=== PATIENT | male | born 1940 | race Caucasian/White ===

== ENCOUNTER 2019-12-10 07:08 | Outpatient (CLI) | payer MEDICARE, OTHER, SELFPAY ==
[2019-12-10 07:53] LABS: Alanine Aminotransferase 28 U/L (4-50); Albumin Level 4.2 g/dL (3.5-5.1); Alkaline Phosphatase 82 U/L (38-126); Aspartate Amino Transferase 33 U/L (17-59); Bilirubin,Total 0.9 mg/dL (0.2-1.3); Blood Urea Nitrogen 20 mg/dL (9-20); Calcium 9.8 mg/dL (8.4-10.2); Carbon Dioxide 26 mmol/L (22-30); Chloride 106 mmol/L (98-107); Cholesterol 108 mg/dL (0-200); Estimated Glomerular Filt Rate > 60; Glucose 101 mg/dL (75-110); HDL Direct 50 mg/dL; Potassium 4.3 mmol/L (3.4-5.0); Sodium 136 mmol/L (137-145); Triglycerides 75 mg/dL (<150)
[2019-12-10 08:04] LABS: LDL Cholesterol Direct < 30 mg/dL
[2019-12-10 09:20] LABS: Hemoglobin A1C 6.1 % (<5.7)
== END 2019-12-10 07:09 | disposition home or self-care (01) ==
PROVIDERS: PCP Family Medicine; Visit Provider Physician Assistant Medical
DX: E11.9 Type 2 diabetes mellitus without complications (principal)
CPT/HCPCS: 36415; 80053; 80061; 83036

== ENCOUNTER 2020-06-14 08:17 | Outpatient (CLI) | payer MEDICARE, OTHER, SELFPAY ==
[2020-06-14 08:58] LABS: Hemoglobin A1C 5.6 % (<5.7)
[2020-06-14 09:06] LABS: Alanine Aminotransferase 40 U/L (4-50); Albumin Level 3.8 g/dL (3.5-5.1); Alkaline Phosphatase 126 U/L (38-126); Anion Gap 8 mmol/L (8-16); Aspartate Amino Transferase 39 U/L (17-59); Bilirubin,Total 1.3 mg/dL (0.2-1.3); Blood Urea Nitrogen 30 mg/dL (9-20); Calcium 9.7 mg/dL (8.4-10.2); Carbon Dioxide 28 mmol/L (22-30); Chloride 105 mmol/L (98-107); Cholesterol 86 mg/dL (0-200); Estimated Glomerular Filt Rate > 60; Glucose 115 mg/dL (75-110); HDL Direct 20 mg/dL; Potassium 3.9 mmol/L (3.4-5.0); Sodium 141 mmol/L (137-145); Triglycerides 79 mg/dL (<150)
[2020-06-14 09:21] LABS: LDL Cholesterol Direct < 30 mg/dL
[2020-06-14 09:35] LABS: Prostate Specific Antigen 16.1 ng/mL (< OR = 4.0)
== END 2020-06-14 08:18 | disposition home or self-care (01) ==
PROVIDERS: PCP Family Medicine; Visit Provider Family Medicine
DX: R97.20 Elevated prostate specific antigen [PSA] (principal); N40.0 Benign prostatic hyperplasia without lower urinary tract symptoms; E78.2 Mixed hyperlipidemia; R73.03 Prediabetes
CPT/HCPCS: 36415; 80053; 80061; 83036; 84153

== ENCOUNTER 2020-06-20 13:19 | Emergency (ER) | payer MEDICARE, OTHER, SELFPAY ==
--- NOTE | ~2020-06-20 | CT_ITS ---
EXAMINATION: CT lumbar spine wo con DATE: 06/20/2020 14:49 INDICATION: Low back pain radiating down left leg. TECHNIQUE: Computed tomography (CT) of the lumbar spine was performed without intravenous contrast. A utomated exposure control and iterative reconstruction technique were employed. The dose-length produ ct was 1176.33 mGy-cm. COMPARISON: None FINDINGS: There is 4 degrees dextrocurvature of lower lumbar spine. L1 is a butterfly segment. There is mildly decreased disc height at L2-L3, moderately decreased disc height at L3-L4, and severely dec reased disc height at L4-L5. The following disc levels are specifically discussed: L1-L2: The disc does not extend beyond the endplate margin. There is moderate bilateral facet joint o steoarthritis. There is no neural foraminal stenosis. There is no central canal stenosis. L2-L3: The disc is bulging. There is moderate right and mild left facet joint osteoarthritis. There i s moderate bilateral neural foraminal stenosis. There is mild central canal stenosis. L3-L4: The disc is bulging. There is severe bilateral facet joint osteoarthritis. There is moderate b ilateral neural foraminal stenosis. There is moderate central canal stenosis. L4-L5: The disc is bulging. There is severe bilateral facet joint osteoarthritis. There is moderate b ilateral neural foraminal stenosis. There is severe central canal stenosis. L5-S1: The disc is bulging. There is severe bilateral facet joint osteoarthritis. There is mild bilat eral neural foraminal stenosis. There is mild central canal stenosis. IMPRESSION: 1. Severe lumbar spondylosis. Reviewed, dictated and finalized at location B. RAL ARRANGEMENT DIRECTOR
[2020-06-20 14:13] VITALS: BP 123/61; PULSE 105; RESP 16; TEMP 36.2; O2SAT 99
[2020-06-20 15:18] LABS: Basophils Absolute Auto 0.1 K/mm3 (0.0-0.1); Basophils Percent Auto 0.3 % (0.2-1.2); Eosinophils Absolute Auto 0.1 K/mm3 (0-0.3); Eosinophils Percent Auto 0.3 % (0-4.4); Hematocrit 41.3 % (42.0-52.0); Hemoglobin 14.2 g/dL (14.0-18.0); Immature Granulocyte Absolute 0.23 K/mm3 (0.00-0.031); Lymphocytes Absolute Auto 0.61 K/mm3 (0.9-3.2); Lymphocytes Percent Auto 2.6 % (18.3-44.2); Mean Corpuscular HGB Conc 34.4 g/dl (32-36); Mean Corpuscular Hemoglobin 33.3 pg (26-34); Mean Corpuscular Volume 96.9 fl (80-100); Mean Platelet Volume 9.8 fl (7.4-10.4); Monocytes Absolute Auto 1.4 K/mm3 (0.1-0.6); Neutrophils Absolute Auto 21.3 K/mm3 (1.3-6.7); Neutrophils Percent Auto 89.8 % (45.5-73.1); Platelet Count Result 438 k/mm3 (150-375); Red Blood Count 4.26 M/mm3 (4.6-6.20); Red Cell Distribution Width 14.1 % (11.5-14.5); White Blood Count 23.7 K/mm3 (4.5-10.0)
[2020-06-20 15:28] LABS: Alanine Aminotransferase 33 U/L (4-50); Alkaline Phosphatase 171 U/L (38-126); Anion Gap 5 mmol/L (8-16); Aspartate Amino Transferase 35 U/L (17-59); Bilirubin,Total 0.9 mg/dL (0.2-1.3); Blood Urea Nitrogen 29 mg/dL (9-20); Calcium 9.2 mg/dL (8.4-10.2); Carbon Dioxide 31 mmol/L (22-30); Chloride 101 mmol/L (98-107); Estimated CRCL calculation 55 ml/min; Estimated Glomerular Filt Rate > 60; Glucose 111 mg/dL (75-110); Potassium 3.6 mmol/L (3.4-5.0); Sodium 137 mmol/L (137-145)
[2020-06-20 16:04] VITALS: BP 134/74; PULSE 103; RESP 16; TEMP 37.4; O2SAT 97
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
[2020-06-20] MEDS: KETOROLAC 30 MG/ML VIAL (*BKC) IV PUSH (16:27)
[2020-06-20] MEDS: diazePAM INJ (*CRX) 10 MG/2 ML SYRINGE 5 MG IM (16:30)
[2020-06-20 16:51] LABS: Add Urine Microscopic? YES; Appearance Urine Clear (Clear); Bilirubin Urine Negative (Negative); Blood Urine Negative (Negative); Color Urine Yellow (Yellow); Glucose Urine UA Negative (Negative); Ketones Urine 1+ mg/dL (Negative); Leukocyte Esterase Ur Negative LEU/UL (Negative); Mucus Urine Rare /lpf; Nitrate Urine Negative (Negative); Protein Urine 1+ mg/dL (Negative); Specific Grav Ur 1.024 (1.001-1.035); Squamous Epithelial Cell Urine Rare /hpf (Few); Urobilinogen Urine Negative mg/dL (<2.0)
[2020-06-20 18:36] VITALS: BP 137/95; PULSE 88; RESP 16; O2SAT 95
--- NOTE | 2020-06-20 19:50 | PC.NURSE ---
Addendum entered by Sofia Nunez 06/20/20 22:34: 2211: [facility] called with updated ETA....0145. (due to call volume exceeding availability.) Original Note: 1729: Called [facility] to transport to [facility]...ETA 1900 (S) 1920: Called [facility] for status...ETA is now 0100 1942: Also called [facility] and [facility]. All declined due to call volume exceeding availability.
[2020-06-20 20:32] VITALS: BP 134/79; PULSE 96; RESP 16; TEMP 36.4; O2SAT 94
--- NOTE | 2020-06-20 20:53 | PC.NURSE ---
pt asking for more fluid to drink, reminded the pt that he is somewhat restricted due to being transferred to [place] for evaluation. pt was given sandwich tray and soda prior to his request for more fluids.
== END 2020-06-21 00:18 | disposition short-term general hospital (02) ==
PROVIDERS: Emergency Provider Emergency Medicine; PCP Family Medicine
DX: R32 Unspecified urinary incontinence (principal); M54.5 Low back pain; Z96.651 Presence of right artificial knee joint; E66.9 Obesity, unspecified; Z68.32 Body mass index [BMI] 32.0-32.9, adult; Z79.82 Long term (current) use of aspirin
CPT/HCPCS: 36415; 72131; 80053; 81001; 85025; 87040; 96365; 96372; 96375; 99285; J0696; J1100; J1885; J3360

== ENCOUNTER 2022-03-26 13:58 | Outpatient (CLI) | payer MEDICARE, OTHER, SELFPAY ==
[2022-03-26 15:11] LABS: Alanine Aminotransferase 27 U/L (6-50); Albumin Level 3.9 g/dL (3.5-5.1); Alkaline Phosphatase 91 U/L (38-126); Anion Gap 12 mmol/L (8-16); Aspartate Amino Transferase 26 U/L (17-59); Bilirubin,Total 0.7 mg/dL (0.2-1.3); Blood Urea Nitrogen 21 mg/dL (9-20); Calcium 9.3 mg/dL (8.4-10.2); Carbon Dioxide 21 mmol/L (22-30); Chloride 104 mmol/L (98-107); Cholesterol 110 mg/dL (0-200); Estimated Glomerular Filt Rate > 60; Glucose 105 mg/dL (65-110); HDL Direct 39 mg/dL; Potassium 4.3 mmol/L (3.4-5.0); Sodium 137 mmol/L (137-145); Triglycerides 147 mg/dL (<150)
[2022-03-26 15:33] LABS: Hemoglobin A1C 5.6 % (<5.7)
[2022-03-26 16:19] LABS: LDL Cholesterol Direct < 30 mg/dL
== END 2022-03-26 13:59 | disposition home or self-care (01) ==
LOC: ANHLAB 14:01
PROVIDERS: PCP Family Medicine; Visit Provider Family Medicine
DX: E78.5 Hyperlipidemia, unspecified (principal); E11.40 Type 2 diabetes mellitus with diabetic neuropathy, unspecified
CPT/HCPCS: 36415; 80053; 80061; 83036

== ENCOUNTER 2022-04-11 00:36 | Day surgery (SDC) | payer MEDICARE, OTHER, SELFPAY ==
--- NOTE | 2022-04-05 15:43 | PC.NURSE ---
Report to the Outpatient Waiting Room, entrance under the green pavilion located off [facility], at [id number] on date __04/11/22 . OR Time: _1200 . Time changes happen often and if your time is changed the preop area will call you the afternoon before. - You and your visitor will be asked to self-screen and do not enter if you have any COVID symptoms. - Only one visitor and NO children visitors are allowed at this time. - The patient visitor is requested to leave or wait in car when not with patient due to restrictions. - A mask is required within the hospital. Patients may have clear liquids (water, carbonated beverages, clear teas, apple juice) until 3 hours prior to surgery with a maximum of 20 ounces. - No food from midnight until time of surgery - Infants may have breast milk until 4 hours before surgery, formula 6 hours prior to surgery. - Children will be allowed to drink immediately following surgery. If applicable, please bring a bottle or sippy cup to assist with drinking. Juice, water, soda, and popsicles are readily available. For infants on formula, please bring formula the day of surgery. Pacifiers are allowed. Take the following medications with a SIP of water the morning of surgery: ___GABAPENTIN Medications to discontinue per physician ALL VITAMINS AND SUPPLEMENTS 3 DAYS PRE OP Date to take last dose___04/07/22 Please no make-up, nail irish, hairspray, perfume, deodorant, or body powder the day of surgery. No jewelry (including any body piercings) or valuables the day of surgery, leave them at home. Please take a shower or bath the night before, or the morning of, surgery with an antibacterial soap. Wear comfortable, loose fitting clothing. Children are encouraged to wear pajamas. - Jewelry must be removed prior to entering the operating room. Rings and piercings that are not removed may be cut off. - The hospital will not accept responsibility for valuables. - Please leave all valuables, including medications, at home the day of surgery. HIBICLENS SHOWER MORNING OF SURGERY If you are going home after surgery, a licensed jinrikisha driver must drive you home. - NO public transportation without another adult. - We recommend that an adult stay with you for 24 hours following discharge. - We also recommend that you do not drive, make important decision, drink alcoholic beverages, or take any drugs that were not prescribed by your health care provider for at least 24 hours after your discharge time. For Pediatric surgeries, we recommend two adults accompany the child home (only one inside the building at this time). Follow any additional instructions given to you from your surgeon. If you or anyone in your household have experienced Covid symptoms in the past week, please notify your surgeon or the nurse liaison at the phone number below for possible testing. Telephone instructions given to _PATIENT and asked if any additional questions and then verbalized understanding. Patient advised to call surgeon office or pre surgery nurse liaison [phone] if any additional questions.
[2022-04-05 15:54] VITALS: BMI 30.4
--- NOTE | 2022-04-10 20:41 | PM.HPGS ---
History of Present Illness History of Present Illness Consent: Risks, benefits, and alternatives of an open right inguinal hernia repair with mesh have been discussed and questions answered. Patient agrees to proceed with procedure. Chief complaint: right inguinal hernia Narrative: Greg Pires is a 81 year old male that presented to the office at the request of Dr Molina for an evaluation of a right inguinal hernia in December of this year. Patient reports that he has noticed a bulge in the right groin bulge that is reducible since 04/2021. He reports that he knew about it when he was at rehab recovering from an abscess on his liver. He was told that this hernia was small and it was asymptomatic at that time and not to worry about it. However, he reports that the hernia has been protruding out somewhat larger for the last few month or so. He reports that he goes to physical therapy twice a week where he is able to ride the bike and do leg presses. He reports that the hernia is not bothersome when doing this therapy. He reports that he would like to be able to walk further and further but the hernia is not what is keeping him from doing this, it is his neuropathy that is keeping him from archiving this. Patient did have a laparoscopic umbilical hernia repair [place] [address] [place]. Patient has had back surgery due to infection in 06/2020. He takes medication daily for high cholesterol and hypertension (rn provider relations is Dr Betsy Farris). He has had a PFO closure completed in 09/2017 at [facility] in [facility]. Review of Systems Review of Systems: All systems reviewed & are unremarkable except as noted in HPI and below (HPI) Constitutional: Constitutional: Reports as per HPI, Denies chills and Denies fever(s) Eyes: Eyes: Reports no additional eye complaints ENT: Reports Normal hearing present and Denies dizziness Cardiovascular: Cardiovascular: Reports no additional cardiovascular complaints, Denies chest pain and Denies irregular heart rhythm Comments: Hx of procedure for PFO closure 2019 HX of HTN and hyperlipidemia. Respiratory: Respiratory: Reports no additional respiratory complaints Gastrointestinal: Gastrointestinal: Reports no additional gastrointestinal complaints, Denies abdominal pain and Denies bloating Comments: Hx of previous umbilical hernia repair in 2013 Genitourinary: Genitourinary: Denies hematuria Musculoskeletal: Musculoskeletal: Denies back pain Integumentary/Breasts: Skin/Breast: Reports system reviewed and no additional complaints, except as docu Neurologic: Reports Normal hearing present, Denies Abnormal speech present, Denies confusion and Denies dizziness Psychiatric: Psychiatric: Reports no additional psychiatric complaints and Denies confusion Endocrine: Endocrine: Reports no additional endocrine complaints Hematologic/Lymphatic: Hematologic/Lymphatic: Denies easy bleeding and Denies easy bruising Allergic/Immunologic: Allergic/Immunologic: Reports no additional allergic/immunologic complaints PMFSH Past Medical History Medical History (Updated 04/11/22 @ 13:02 by Santana Marshall MD) ACL tear (~1963) 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
[2022-04-11] VITALS (9 sets, daily range): BP systolic 109–161; BP diastolic 64–84; PULSE 49–67; RESP 12–16; TEMP 36.4–36.6; O2SAT 96–99
[2022-04-11] MEDS: ACETAMINOPHEN 500 MG TABLET 1000 MG PO (11:10)
[2022-04-11] MEDS: KETOROLAC 15 MG/ML VIAL (*BKC) IV PUSH (11:33)
[2022-04-11 11:35] LABS: Glucose Point of Care 103 mg/dl (65-105)
[2022-04-11] MEDS: LACTATED RINGERS 1,000 ML 30 ML IV CONT ×2 (11:40→15:46)
--- NOTE | 2022-04-11 12:56 | WPDHPUPDATE1 ---
History and Physical Update Update Date/Time: 04/11/22 12:56 History and Physical has been reviewed, including an updated exam of the patient. There are NO changes in the patient's condition. Risks, benefits, and alternatives have been discussed and questions answered. Patient agrees to proceed with procedure.
--- NOTE | 2022-04-11 13:01 | WPDANESEPPF ---
Anes - Initial Pre Proc Eval Procedure: Operation Date: 04/11/22 12:00 Proposed Procedures p Open Right Inguinal Hernia Repair with Mesh - Sotero Corey MD Date/Time: 04/11/22 13:01 Surgeon: Sotero Corey MD Pre Op Diagnosis: right inguinal hernia Patient Data Age: 81 Gender: M Height: 1.68 m Weight: 86.5 kg Last Vital Signs Temp 36.6 C 04/11/22 11:40 Pulse 54 L 04/11/22 11:40 Resp 16 04/11/22 11:40 BP 161/64 H 04/11/22 11:40 Pulse Ox 96 04/11/22 11:40 O2 Del Method Room Air 04/11/22 11:40 Allergies Allergy/AdvReac Type Severity Reaction Status Date / Time Jasmyn Nut Allergy Severe FACIAL Uncoded 04/11/22 10:57 SWELLING, ITCHING,SWOLLEN EYES,REQURIED BENADRYL Home Medications Medication Instructions Recorded Confirmed Type aspirin 81 mg tablet,delayed 81 mg PO DAILY 12/17/19 04/11/22 History release (Aspir-) lisinopril 5 mg tablet 5 mg PO QAM 12/17/19 04/11/22 History hcetphnd-azz-uwtwa acid 300 1 tablet PO DAILY 12/17/19 04/11/22 History mcg-lycopene 600 mcg-lutein 300 mcg tablet (Centrum Silver Ultra Men's) atorvastatin 40 mg tablet 40 mg PO DAILY 06/09/21 04/11/22 History gabapentin 300 mg capsule 300 mg PO BID 06/09/21 04/11/22 History metformin 500 mg tablet,extended See Rx Instructions .Route 10/13/21 04/11/22 Rx release 24 hr .COMPLEX #90 tabs omega 2-ioq-uat-fish oil 1,000 mg 1 cap PO DAILY 12/26/21 04/11/22 History (120 mg-180 mg) capsule (Fish Oil) vitamin E mixed 1,000 unit capsule 1,000 unit PO DAILY 12/26/21 04/11/22 History ascorbic acid (vitamin C) 500 mg 500 mg PO DAILY 04/05/22 04/11/22 History capsule ginseng 100 mg capsule 100 mg PO DAILY 04/05/22 04/11/22 History naproxen sodium 220 mg capsule 220 mg PO BID PRN Pain 04/05/22 04/11/22 History Laboratory Tests 04/11/22 11:31 POC Capillary Glucose 103 mg/dl mg/dl (65-105) Patient hx anesthesia problems: none Family hx anesthesia problems: none Results Review: All pre-operative results and documents have been reviewed as part of the pre-operative evaluation. 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 Age: 81 Family history of glaucoma Family history of congestive heart failure Father Family history of blood dyscrasia Family history of cardiovascular disease Patient's father is , Onset Age: 89 Family history of coronary artery disease Other Family history of arthritis Family history of congenital heart disease Family history of gout Social History Social History Smoking packs per day: 1 Smoking cigarettes per day: 20.0 Years smoked: 20 Smoking pack-years: 20.00 Smoking status: Former smoker Tobacco type: cigarettes Smoking end date: 07/15/92 Alcohol intake: current Drinks per week: 7 Substance use: never Substance use type: does not use Living arrangements: with family Gender identity (if verbalized by the patient): Male Spiritual care concerns: No Anes
[2022-04-11] MEDS: ceFAZolin 2 GM/D5W 50 ML 2 GM/50 ML BAG IVPB (13:11)
[2022-04-11] MEDS: LIDOCAINE HCL 1% PF 30 ML VIAL INFILTRATE (13:34)
[2022-04-11] MEDS: BUPIVACAINE/EPINEPHRINE 0.25% 50 ML VIAL 30 ML INFILTRATE (13:35)
--- NOTE | 2022-04-11 15:46 | W.PM.PROC2 ---
Procedure Note - Detailed Date of Procedure 04/11/22 Pre-op Diagnosis right inguinal hernia Post-op Diagnosis Other (Direct and indirect right inguinal hernia) Procedure Performed Open inguinal hernia repair with mesh Surgeon Sotero Corey MD Community Relations Director [employer], [place] 1st assist Anesthesia General Indications Patient has a longstanding enlarging somewhat tender right inguinal hernia. He has received preop clearance for anesthesia and we are proceeding with a repair because of his continuing problems with pain and enlargement at the right inguinal site. Findings There was a large long very thin walled indirect inguinal hernia and a definite approximally 5 x 3 by 8 weakness in the direct space with minor bulging. The indirect sac was completely excised and suture ligated at the level of the internal ring. Description of Procedure The patient was placed in the supine position on the operating room table. After induction of adequate GIVS anesthesia using an LMA by [facility] Anesthesia staff, we carefully prepped the entire lower abdomen with chlorhexidine and the scrotum and penis with Betadine. One sterile towel was placed underneath the scrotum. Four towels were placed around the right lower quadrant. Following this, a time-out was performed with the surgical team and the patient's surgical procedure and site was confirmed. We then carefully outlined a curvilinear incision in the right groin area and a curvilinear incision was made after introducing a mixture of local anesthetic, using 0.25% Marcaine with epinephrine & plain 1% Xylocaine as both an ilioinguinal nerve block and at the incision site with a 25 gauge needle. Following this, I carefully made the incision, and carried it down through the subcutaneous tissue. Hannah's fascia was incised and then we identified the external oblique aponeurosis and the external ring. Following this, the same mixture of local anesthetic was infiltrated underneath the external oblique aponeurosis and this was split in the direction of it's fibers with a #15 blade initially and then using Metzenbaum scissors. I then opened the external oblique through the external ring and incised this somewhat posteriorly and superiorly exposing the ilioinguinal nerve. This nerve was carefully preserved laterally and then I carefully and meticulously dissected out the cord structures at the level of the pubic tubercle. I then surrounded these structures at the level of pubic tubercle and placed a Alfonso drain around them. I then carefully dissected the indirect hernia sac up and off of the cord tissues, and brought it up and out of the incision. while doing this it appeared that we observed some bowel in the sac which I was able to compression reduced back through the internal ring and into the abdomen. We carefully dissected the layers and cremasteric tissues off the hernia sac and then eventually opened the hernia sac. Upon opening the sac was found that there were was a small amount of serous fluid within the sac but no there hernia sac contents. Holding this up with 4 hemostats, I carefully dissected it off the cord structures, being careful to avoid injury to the Pampiniform plexus veins, the spermatic artery and the vas. Once the hernia sac was carefully dissected back to the level of the internal ring, a transfixition suture of 2-0 silk was used to close the neck of the hernia sac and following this, a 2 - 0 silk tie was placed just below this, tied tight, and then distally the hernia sac was amputated with Bovie cautery. It was then passed off the field for pathologic evaluation. Following this, we took care to recreate an appropriate inguinal canal. This was done by carefully dissecting from the internal ring down to the pubic bone, and dissecting away any cremasteric tissue. Once the large indirect hernia sac was removed palpation in the direct space and possible ox triangle revealed definite
[2022-04-11 16:00] LABS: Glucose Point of Care 95 mg/dl (65-105)
== END 2022-04-11 18:35 | disposition home or self-care (01) ==
PROVIDERS: PCP Family Medicine; Visit Provider Surgery
PROC: (CPT 49505; principal; 2022-04-11 12:00)
DX: K40.90 Unilateral inguinal hernia, without obstruction or gangrene, not specified as recurrent (principal); E11.40 Type 2 diabetes mellitus with diabetic neuropathy, unspecified; E78.2 Mixed hyperlipidemia; Z86.73 Personal history of transient ischemic attack (TIA), and cerebral infarction without residual deficits; Z79.82 Long term (current) use of aspirin; Z87.891 Personal history of nicotine dependence; E66.9 Obesity, unspecified; Z68.30 Body mass index [BMI] 30.0-30.9, adult; Z79.84 Long term (current) use of oral hypoglycemic drugs
CPT/HCPCS: 49505; 82948; 88302; A9270; C1781; J0690; J1885; J2405; J2704; J3010; J7120

== ENCOUNTER 2022-11-05 08:38 | Outpatient (CLI) | payer MEDICARE, OTHER, SELFPAY ==
[2022-11-05 09:50] LABS: Alanine Aminotransferase 32 U/L (6-50); Albumin Level 4.3 g/dL (3.5-5.1); Alkaline Phosphatase 91 U/L (38-126); Anion Gap 4 mmol/L (8-16); Aspartate Amino Transferase 34 U/L (17-59); Blood Urea Nitrogen 22 mg/dL (9-20); Calcium 9.5 mg/dL (8.4-10.2); Carbon Dioxide 30 mmol/L (22-30); Chloride 104 mmol/L (98-107); Cholesterol 101 mg/dL (0-200); Estimated Glomerular Filt Rate > 60; Glucose 92 mg/dL (65-110); HDL Direct 51 mg/dL; Potassium 4.6 mmol/L (3.4-5.0); Sodium 138 mmol/L (137-145); Triglycerides 60 mg/dL (<150)
[2022-11-05 09:53] LABS: Hemoglobin A1C 5.7 % (<5.7)
[2022-11-05 10:22] LABS: LDL Cholesterol Direct < 30 mg/dL
[2022-11-05 10:23] LABS: Creatinine Urine 84.6 mg/dL
[2022-11-05 10:28] LABS: MALB Creatinine Ratio 8.6 mg/g (0-30); Microalbumin Urine Random 7.3 mg/L (0-16.7)
== END 2022-11-05 08:39 | disposition home or self-care (01) ==
LOC: ANHLAB 08:41
PROVIDERS: PCP Family Medicine; Visit Provider Nurse Practitioner
DX: E11.40 Type 2 diabetes mellitus with diabetic neuropathy, unspecified (principal); E78.2 Mixed hyperlipidemia
CPT/HCPCS: 36415; 80053; 80061; 82043; 83036

== ENCOUNTER 2023-04-03 11:44 | Outpatient (CLI) | payer MEDICARE, OTHER, SELFPAY ==
[2023-04-03 14:47] LABS: Creatinine Urine 53.3 mg/dL
[2023-04-03 14:58] LABS: MALB Creatinine Ratio < 11.3 mg/g (0-30); Microalbumin Urine Random < 6.0 mg/L (0-16.7)
[2023-04-03 15:17] LABS: Alanine Aminotransferase 33 U/L (6-50); Alkaline Phosphatase 74 U/L (38-126); Anion Gap 3 mmol/L (8-16); Aspartate Amino Transferase 53 U/L (17-59); Bilirubin,Total 0.9 mg/dL (0.2-1.3); Blood Urea Nitrogen 18 mg/dL (9-20); Calcium 9.1 mg/dL (8.4-10.2); Carbon Dioxide 30 mmol/L (22-30); Chloride 104 mmol/L (98-107); Cholesterol 107 mg/dL (0-200); Estimated Glomerular Filt Rate > 60; Glucose 82 mg/dL (65-110); HDL Direct 45 mg/dL; Potassium 4.5 mmol/L (3.4-5.0); Sodium 137 mmol/L (137-145); Triglycerides 167 mg/dL (<150)
[2023-04-03 15:28] LABS: LDL Cholesterol Direct 35 mg/dL
[2023-04-03 21:05] LABS: Hemoglobin A1C 5.8 % (<5.7)
== END 2023-04-03 11:45 | disposition home or self-care (01) ==
PROVIDERS: PCP Family Medicine; Visit Provider Family Medicine
DX: E11.9 Type 2 diabetes mellitus without complications (principal)
CPT/HCPCS: 36415; 80053; 80061; 82043; 83036

== ENCOUNTER 2023-06-11 12:51 | Outpatient (CLI) | payer MEDICARE, OTHER, SELFPAY ==
--- NOTE | 2023-06-11 13:04 | ECG_ITS ---
Measurements Intervals [place] Rate: 66 P: 58 LA: 185 QRS: 55 QRSD: 100 T: 22 QT: 392 QTc: 414 Interpretive Statements SINUS RHYTHM VENTRICULAR PREMATURE COMPLEX MINIMAL Q WAVES- INFERIOR LEADS BASELINE ARTIFACT- I, II, III, AVR, AVL, AVF BORDERLINE ECG NO PREVIOUS ECG AVAILABLE FOR COMPARISON Electronically Signed On 06-11-2023 13:21:54 INSURANCE OFFICE MANAGER by Richard Martell D.O.
[2023-06-11 14:07] LABS: Anion Gap 8 mmol/L (8-16); Blood Urea Nitrogen 18 mg/dL (9-20); Calcium 9.6 mg/dL (8.4-10.2); Carbon Dioxide 26 mmol/L (22-30); Chloride 105 mmol/L (98-107); Estimated Glomerular Filt Rate > 60; Glucose 92 mg/dL (65-110); Potassium 4.9 mmol/L (3.4-5.0); Sodium 139 mmol/L (137-145)
== END 2023-06-11 12:52 | disposition home or self-care (01) ==
LOC: ANHSURGERY 12:59
PROVIDERS: Anesthesiology; PCP Family Medicine; Visit Provider Plastic Surgery
DX: E78.2 Mixed hyperlipidemia (principal); E11.9 Type 2 diabetes mellitus without complications; Z01.818 Encounter for other preprocedural examination
CPT/HCPCS: 36415; 80048; 93005

== ENCOUNTER 2023-06-14 03:04 | Day surgery (SDC) | payer MEDICARE, OTHER, SELFPAY ==
[2023-06-05 14:27] VITALS: BMI 29.9
--- NOTE | 2023-06-05 14:41 | PC.NURSE ---
PRE-OP INSTRUCTIONS, PLEASE READ CAREFULLY Report to the Outpatient Waiting Room, entrance under the green pavilion located off [facility], at time _0600_ on date _06/14/23_. Planned Procedure Time: _0730_. Time changes happen often and if your time is changed the preop area will call you the afternoon before. - You and your visitor will be asked to self-screen and do not enter if you have any COVID symptoms. - A mask is optional within the hospital at this time. - No food/fluids from 1130pm 06/13/23 until time of surgery Take the following medications with a SIP of water the morning of surgery: _GABAPENTIN_ DO NOT STOP ANY OF YOUR OTHER PRESCRIPTION MEDICATIONS PRIOR TO SURGERY ?EXCEPT THE FOLLOWING Medications to discontinue _ASPIRIN PER DR. WALSH, Date to take last dose_CALL DR. WALSH'S OFFICE FOR INSTRUCTIONS_ Medications to discontinue per ANESTHESIA - _MULTIVITAMIN & SUPPLEMENTS 3 DAYS PRIOR TO SURGERY, Date to take last dose 06/10/23_ Please no make-up, nail mexican, hairspray, perfume, deodorant, or body powder the day of surgery. No jewelry (including any body piercings) or valuables the day of surgery, leave them at home. Please take a shower or bath the night before, or the morning of, surgery with an antibacterial soap. Wear comfortable, loose fitting clothing. - Jewelry must be removed prior to entering the operating room. Rings and piercings that are not removed may be cut off. - The hospital will not accept responsibility for valuables. - Please leave all valuables, including medications, at home the day of surgery. If you are going home after surgery, a licensed tractor trailer truck driver must drive you home. - NO public transportation without another adult if you receive anesthesia. - We recommend that an adult stay with you for 24 hours following discharge. - We also recommend that you do not drive, make important decision, drink alcoholic beverages, or take any drugs that were not prescribed by your health care provider for at least 24 hours after your discharge time. Follow any additional instructions given to you from your surgeon. If you or anyone in your household have experienced Covid symptoms in the past week, please notify your surgeon or the nurse liaison at the phone number below for possible testing. Telephone instructions given to _PATIENT_and asked if any additional questions and then verbalized understanding. Patient advised to call surgeon office or pre surgery nurse liaison [phone] if any additional questions.
[2023-06-14 06:29] VITALS: BP 162/76; PULSE 67; RESP 18; TEMP 36.6; O2SAT 100
[2023-06-14] MEDS: LACTATED RINGERS 1,000 ML 30 ML IV CONT (06:52)
--- NOTE | 2023-06-14 06:52 | PM.HPGS ---
History of Present Illness History of Present Illness Consent: Patient seen and examined in pre-operative holding area. No interval change in medical history or symptoms other than noting his right middle finger has been locking. Patient recalls previous discussion of benefits and alternatives to procedure. Continues to desire to proceed with right endoscopic poss open carpal tunnel release and right middle finger trigger finger steroid injection. Reviewed procedure, post-op expectations and risks including but not limited to bleeding, infection, injury to tendon/nerve/vessel, decreased hand function, stiffness, RSD, no change or worsening of symptoms. I discussed the possible use of assistants and their participation in the case. Patient stated understanding and signed the consent form wishing to proceed. Chief complaint: Right carpal tunnel syndrome Narrative: Greg Pires is a 83 year old male with b/l cts desiring to proceed with surgery as above. no changes in healthy or history or symptoms other than trigger finger R MF. discussed impression and Dx and optio for concurrent steroid injection vs a1 chetan release, post-op expectations and risks. pt desires right MF trigger finger steroid injection at this time. Discussed steroid injection, indications, expectations and risks. risks including but not limited to bleeding, bruising, pain, pigmentation changes at injection site and change in blood sugar. 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 Liver abscess due to bacteria Mixed hyperlipidemia Obesity (BMI 30.0-34.9) Peripheral neuropathy Psoas abscess Transient cerebral ischemic attack, unspecified Umbilical hernia (~2002) Surgical History Surgical History H/O prostate biopsy H/O right inguinal hernia repair Open right inguinal hernia repair with mesh on 04/11/22 H/O thumb surgery H/O umbilical hernia repair History of adenoidectomy (~04/13/77) History of knee replacement (~2016) right knee Hx of tonsillectomy (~04/13/77) S/P patent foramen ovale closure Family History Family History Grandparent Diabetes mellitus Mother Diabetes mellitus Patient's mother is , Onset Age: 81 Family history of glaucoma Family history of congestive heart failure Father Family history of blood dyscrasia Family history of cardiovascular disease Patient's father is , Onset Age: 89 Family history of coronary artery disease Other Family history of arthritis Family history of congenital heart disease Family history of gout Social History Social History Smoking packs per day: 1 Smoking cigarettes per day: 20.0 Years smoked: 20 Smoking pack-years: 20.00 Smoking status: Former smoker Tobacco type: cigarettes Smoking end date: 07/15/92 Alcohol intake: current Drinks per week: 7 Substance use: never Substance use type: does not use Lack of Transportation: No Lack of Food: Never True Current Housing: I Have Housing Concerned About Future Housing: No Difficulty Paying Gas/Electric Bills: No Difficulty Paying for Meds: No Currently Unemployed: No Education: Master's Degree or Higher Difficulty w/ Childcare or Family Care: No Living arrangements: with family Occupation/Education: retired Gender identity (if verbalized by the patient): Male Sexual Orientation (if Verbalized by the Patient): Straight or Heterosexual Spiritual care concerns: No Meds
--- NOTE | 2023-06-14 06:53 | P.OP_ITS ---
Procedure Note - Detailed Date of Procedure 06/14/23 Pre-op Diagnosis right carpal tunnel syndrome and right middle finger trigger finger Post-op Diagnosis Same Procedure Performed right ectr and right middle finger steroid injection Surgeon Ramon Rush MD Anesthesia MAC Description of Procedure ENDOSCOPIC CARPAL TUNNEL RELEASE INFORMED CONSENT: The patient was seen and examined and marked in the pre-op area.? The patient signed the consent form. PROCEDURE IN DETAIL:The patient taken back to OR on the stretcher in supine position. Time out performed with anesthesia, surgeon and staff agreeing on patient's name site and surgery to be performed SCDs were placed on the lower extremities and inflated. A tourniquet was placed on {right} upper extremity and antibiotics given IV After anesthesia administered sedation I injected {3}cc 1%lido with epi and 0.5% marcaine plain at the operative site The?{right upper extremity}?was prepped and draped in sterile fashion the??{right upper extremity} was? exsanguinated with Esmarch bandage and tourniquet inflated to 250mmHg I made a transverse incision in the {right} volar distal wrist crease through skin and dermis with 15 blade scalpel.? Littler scissors spread down to antebrachial fascia. A small incision was made in antebrachial fascia allowing access to Carpal tunnel. I proceeded with sequential dilation staying in line with the ring finger and hugging the hook of the hamate.? I then used the synovial elevator to free any adhesions from the underside of the transverse carpal ligament. Next I was able to insert the Microaire endoscopic carpal tunnel device with direct visualization of the transverse fibers on the monitor and proceeded with complete segmental retrograde release of the ligament in its entirety.? I irrigated with normal saline and closed with 4-0 monocryl for dermis and sub cuticular closure. next, I injected 0.3cc 1%lidocaine plain and 0.7cc Betamethasone 6mg/ml injected into the right middle finger flexor sheath around a1 chetan under sterile conditions. A dressing of Dermabond, 4x4, samuel, and a volar splint was applied for patient safety, security, and comfort and secured with an leigh ann bandage after the tourniquet was let down noting the hand was warm and well perfused. The patient was then awaken from anesthesia and transferred to the recovery room in stable condition.? Complications - none EBL- 0cc Disposition - home in stable conditions [facility] [place] Surgery - Charge Forward: Surgery Billing ([id number])
--- NOTE | 2023-06-14 07:14 | WPDANESEPPF ---
Anes - Initial Pre Proc Eval Procedure: Operation Date: 06/14/23 07:30 Proposed Procedures p Right Endoscopic Carpal Tunnel Release - Ramon Rush MD Date/Time: 06/14/23 07:14 Surgeon: Ramon Rush MD Pre Op Diagnosis: Right carpal tunnel syndrome Patient Data Age: 83 Gender: M Height: 1.68 m Weight: 84.09 kg Allergies Allergy/AdvReac Type Severity Reaction Status Date / Time Jasmyn Nut Allergy Severe FACIAL Uncoded 06/05/23 14:24 SWELLING, ITCHING,SWOLLEN EYES,REQURIED BENADRYL Home Medications Medication Instructions Recorded Confirmed Type aspirin 81 mg tablet,delayed 81 mg PO DAILY 12/17/19 06/05/23 History release (Aspir-) lisinopril 5 mg tablet 5 mg PO QAM 12/17/19 06/05/23 History sqspaelj-wd-lcibe 300 mcg-K 60 1 tablet PO DAILY 12/17/19 06/05/23 History mcg-lycop 600 mcg-lutein 300 mcg tablet (Centrum Silver Ultra Men's) atorvastatin 40 mg tablet 40 mg PO DAILY 06/09/21 06/05/23 History omega 9-ycp-pmh-fish oil 1,000 mg 1 cap PO DAILY 12/26/21 06/05/23 History (120 mg-180 mg) capsule (Fish Oil) vitamin E mixed 1,000 unit capsule 1,000 unit PO DAILY 12/26/21 06/05/23 History ascorbic acid (vitamin C) 500 mg 500 mg PO DAILY 04/05/22 06/05/23 History capsule ginseng 100 mg capsule 100 mg PO DAILY 04/05/22 06/05/23 History gabapentin 300 mg capsule 300 mg PO TID #270 caps 02/28/23 06/05/23 Rx metformin 500 mg tablet,extended See Rx Instructions .Route 03/04/23 06/05/23 Rx release 24 hr .COMPLEX #90 tabs Patient hx anesthesia problems: none Family hx anesthesia problems: none Results Review: All pre-operative results and documents have been reviewed as part of the pre-operative evaluation. 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 type 2 diabetes mellitus with diabetic neuropathy Liver abscess due to bacteria Mixed hyperlipidemia Obesity (BMI 30.0-34.9) Peripheral neuropathy Psoas abscess Transient cerebral ischemic attack, unspecified Umbilical hernia (~2002) Surgical History Surgical History H/O prostate biopsy H/O right inguinal hernia repair Open right inguinal hernia repair with mesh on 04/11/22 H/O thumb surgery H/O umbilical hernia repair History of adenoidectomy (~04/13/77) History of knee replacement (~2016) right knee Hx of tonsillectomy (~04/13/77) S/P patent foramen ovale closure Family History Family History Grandparent Diabetes mellitus Mother Diabetes mellitus Patient's mother is , Onset Age: 81 Family history of glaucoma Family history of congestive heart failure Father Family history of blood dyscrasia Family history of cardiovascular disease Patient's father is , Onset Age: 89 Family history of coronary artery disease Other Family history of arthritis Family history of congenital heart disease Family history of gout Social History Social History Smoking packs per day: 1 Smoking cigarettes per day: 20.0 Years smoked: 20 Smoking pack-years: 20.00 Smoking status: Former smoker Tobacco type: cigarettes Smoking end date: 07/15/92 Alcohol intake: current Drinks per week: 7 Substance use: never Substance use type: does not use Lack of Transportation: No Lack of Food: Never True Current Housing: I Have Housing Concerned About Future Housing: No Difficulty Paying Gas/Electric Bills: No Difficulty Paying for Meds: No Currently Unemployed: No Education: Master's Degree or Higher Difficulty w/ Childcare or Family Care: No Living arrangements: with family Occupation/Educat
[2023-06-14 07:15] LABS: Glucose Point of Care 85 mg/dl (65-105)
[2023-06-14] MEDS: ceFAZolin 2 GM/D5W 50 ML 2 GM/50 ML BAG IVPB (07:30)
[2023-06-14] MEDS: LIDO 1%/EPINEPHRINE 1:100,000 50 ML VIAL 10 ML INFILTRATE (07:43)
[2023-06-14] MEDS: BUPivacaine HCL 0.5% PF 30 ML VIAL 10 ML INFILTRATE (07:44)
[2023-06-14] MEDS: TRIAMCINOLONE ACET INJ 40 MG/ML VIAL IM (07:45)
[2023-06-14 07:59] VITALS: BP 95/53; PULSE 61; RESP 12; O2SAT 96
[2023-06-14 08:08] LABS: Glucose Point of Care 100 mg/dl (65-105)
[2023-06-14 08:30] VITALS: BP 110/68; PULSE 76; RESP 20
[2023-06-14 09:00] VITALS: BP 109/67; PULSE 80; RESP 20
== END 2023-06-14 09:10 | disposition home or self-care (01) ==
PROVIDERS: PCP Family Medicine; Visit Provider Plastic Surgery
PROC: 01N54ZZ Release Median Nerve, Percutaneous Endoscopic Approach (ICD-10-PCS; CPT 29848; principal; 2023-06-14 07:30)
DX: G56.01 Carpal tunnel syndrome, right upper limb (principal); E78.2 Mixed hyperlipidemia; E11.40 Type 2 diabetes mellitus with diabetic neuropathy, unspecified; G62.9 Polyneuropathy, unspecified; Z86.79 Personal history of other diseases of the circulatory system; Z86.73 Personal history of transient ischemic attack (TIA), and cerebral infarction without residual deficits; Z82.49 Family history of ischemic heart disease and other diseases of the circulatory system; Z87.891 Personal history of nicotine dependence; Z79.82 Long term (current) use of aspirin; Z79.84 Long term (current) use of oral hypoglycemic drugs
CPT/HCPCS: 29848; 20550; 82948; J0690; J2405; J2704; J3010; J3301; J7120

== ENCOUNTER 2023-06-25 12:09 | Outpatient (CLI) | payer MEDICARE, OTHER, SELFPAY ==
[2023-06-25 16:21] LABS: Prostate Specific Antigen 19.2 ng/mL (< OR = 4.0)
== END 2023-06-25 12:10 | disposition home or self-care (01) ==
PROVIDERS: PCP Family Medicine; Visit Provider Urology
DX: R97.20 Elevated prostate specific antigen [PSA] (principal)
CPT/HCPCS: 36415; 84153

== ENCOUNTER 2023-07-17 00:53 | Day surgery (SDC) | payer MEDICARE, OTHER, SELFPAY ==
[2023-07-05 14:12] VITALS: BMI 29.9
--- NOTE | 2023-07-05 14:19 | PC.NURSE ---
Report to the Outpatient Waiting Room, entrance under the green pavilion located off [facility], at time __0800 on date __07/17/23 . Planned Procedure Time: ___1000 . Time changes happen often and if your time is changed the preop area will call you the afternoon before. - You and your visitor will be asked to self-screen and do not enter if you have any COVID symptoms. - A mask is optional within the hospital at this time. Patients may have clear liquids (water, carbonated beverages, clear teas, apple juice) until 3 hours prior to surgery with a maximum of 20 ounces. - No food from midnight until time of surgery - Infants may have breast milk until 4 hours before surgery, formula 6 hours prior to surgery. - Children will be allowed to drink immediately following surgery. If applicable, please bring a bottle or sippy cup to assist with drinking. Juice, water, soda, and popsicles are readily available. For infants on formula, please bring formula the day of surgery. Pacifiers are allowed. Take the following medications with a SIP of water the morning of surgery: ___GABAPENTIN DO NOT STOP ANY OF YOUR OTHER PRESCRIPTION MEDICATIONS PRIOR TO SURGERY ?EXCEPT THE FOLLOWING Medications to discontinue - _ASPIRIN PER DR. WALSH'S INSTRUCTIONS - CALL OFFICE FOR INSTRUCTIONS_ Medications to discontinue per ANESTHESIA - _VITAMINS/SUPPLEMENTS 3 DAYS PRIOR TO SURGERY, Date to take last dose 07/13/23_ Please no make-up, nail st helenian, hairspray, perfume, deodorant, or body powder the day of surgery. No jewelry (including any body piercings) or valuables the day of surgery, leave them at home. Please take a shower or bath the night before, or the morning of, surgery with an antibacterial soap. Wear comfortable, loose fitting clothing. Children are encouraged to wear pajamas. - Jewelry must be removed prior to entering the operating room. Rings and piercings that are not removed may be cut off. - The hospital will not accept responsibility for valuables. - Please leave all valuables, including medications, at home the day of surgery. If you are going home after surgery, a licensed truck driver heavy must drive you home. - NO public transportation without another adult if you receive anesthesia. - We recommend that an adult stay with you for 24 hours following discharge. - We also recommend that you do not drive, make important decision, drink alcoholic beverages, or take any drugs that were not prescribed by your health care provider for at least 24 hours after your discharge time. For Pediatric surgeries, we recommend two adults accompany the child home. Follow any additional instructions given to you from your surgeon. If you or anyone in your household have experienced Covid symptoms in the past week, please notify your surgeon or the nurse liaison at the phone number below for possible testing. Telephone instructions given to ____PT and asked if any additional questions and then verbalized understanding. Patient advised to call surgeon office or pre surgery nurse liaison [phone] if any additional questions.
--- NOTE | 2023-07-17 07:03 | WPDHPUPDATE1 ---
History and Physical Update Update Date/Time: 07/17/23 07:03 Patient seen and examined in pre-operative holding area. No interval change in medical history or symptoms. Patient recalls previous discussion of benefits and alternatives to procedure. Continues to desire to proceed with left endoscopic possible open carpal tunnel release. Reviewed procedure, post-op expectations and risks including but not limited to bleeding, infection, injury to tendon/nerve/vessel, decreased hand function, stiffness, RSD, no change or worsening of symptoms. I discussed the possible use of assistants and their participation in the case. Patient stated understanding and signed the consent form wishing to proceed.
--- NOTE | 2023-07-17 07:04 | W.PM.PROC2 ---
Procedure Note - Detailed Date of Procedure 07/17/23 Pre-op Diagnosis left carpal tunnel syndrome Post-op Diagnosis Same Procedure Performed left ectr Surgeon Ramon Rush MD Anesthesia MAC Description of Procedure ENDOSCOPIC CARPAL TUNNEL RELEASE INFORMED CONSENT: The patient was seen and examined and marked in the pre-op area.? The patient signed the consent form. PROCEDURE IN DETAIL:The patient taken back to OR on the stretcher in supine position. Time out performed with anesthesia, surgeon and staff agreeing on patient's name site and surgery to be performed SCDs were placed on the lower extremities and inflated. A tourniquet was placed on {left} upper extremity and antibiotics given IV After anesthesia administered sedation I injected {4}cc 1%lido with epi and 0.5% marcaine plain at the operative site The?{left upper extremity}?was prepped and draped in sterile fashion the??{left upper extremity} was? exsanguinated with Esmarch bandage and tourniquet inflated to 250mmHg I made a transverse incision in the {left} volar distal wrist crease through skin and dermis with 15 blade scalpel.? Littler scissors spread down to antebrachial fascia. A small incision was made in antebrachial fascia allowing access to Carpal tunnel. I proceeded with sequential dilation staying in line with the ring finger and hugging the hook of the hamate.? I then used the synovial elevator to free any adhesions from the underside of the transverse carpal ligament. Next I was able to insert the Microaire endoscopic carpal tunnel device with direct visualization of the transverse fibers on the monitor and proceeded with complete segmental retrograde release of the ligament in its entirety.? I irrigated with normal saline and closed with 4-0 monocryl for dermis and subcuticular closure. A dressing of Dermabond, 4x4, samuel, and a volar splint was applied for patient safety, security, and comfort and secured with an leigh ann bandage after the tourniquet was let down noting the hand was warm and well perfused. The patient was then awaken from anesthesia and transferred to the recovery room in stable condition.? Complications - none EBL- 0cc Disposition - home in stable conditions AM Billing Surgery - Charge Forward: Surgery Billing ([id number])
--- NOTE | 2023-07-17 08:32 | WPDANESEPPF ---
Anes - Initial Pre Proc Eval Procedure: Operation Date: 07/17/23 10:00 Proposed Procedures p Left Endoscopic Carpal Tunnel, Possible Open - Ramon Rush MD Date/Time: 07/17/23 08:32 Surgeon: Ramon Rush MD Pre Op Diagnosis: left carpal tunnel syndrome Patient Data Age: 83 Gender: M Height: 1.68 m Weight: 84 kg Allergies Allergy/AdvReac Type Severity Reaction Status Date / Time Jasmyn Nut Allergy Severe FACIAL Uncoded 07/17/23 08:08 SWELLING, ITCHING,SWOLLEN EYES,REQURIED BENADRYL Home Medications Medication Instructions Recorded Confirmed Type aspirin 81 mg tablet,delayed 81 mg PO DAILY 12/17/19 07/05/23 History release (Aspir-) lisinopril 5 mg tablet 5 mg PO QAM 12/17/19 07/05/23 History mcorwyrn-ne-iaumb 300 mcg-K 60 1 tablet PO DAILY 12/17/19 07/05/23 History mcg-lycop 600 mcg-lutein 300 mcg tablet (Centrum Silver Ultra Men's) atorvastatin 40 mg tablet 40 mg PO DAILY 06/09/21 07/05/23 History omega 3-pme-ydk-fish oil 1,000 mg 1 cap PO DAILY 12/26/21 07/05/23 History (120 mg-180 mg) capsule (Fish Oil) ascorbic acid (vitamin C) 500 mg 500 mg PO DAILY 04/05/22 07/05/23 History capsule ginseng 100 mg capsule 100 mg PO DAILY 04/05/22 07/05/23 History metformin 500 mg tablet,extended See Rx Instructions .Route 03/04/23 07/05/23 Rx release 24 hr .COMPLEX #90 tabs gabapentin 300 mg capsule 300 mg PO TID #270 caps 06/20/23 07/05/23 Rx vitamin E mixed 1,000 unit capsule 400 unit PO DAILY 06/27/23 07/05/23 History Patient hx anesthesia problems: none Family hx anesthesia problems: none Results Review: All pre-operative results and documents have been reviewed as part of the pre-operative evaluation. 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 Controlled type 2 diabetes mellitus with diabetic neuropathy Liver abscess due to bacteria Mixed hyperlipidemia Obesity (BMI 30.0-34.9) Peripheral neuropathy Psoas abscess Transient cerebral ischemic attack, unspecified Umbilical hernia (~2002) Surgical History Surgical History H/O prostate biopsy H/O right inguinal hernia repair Open right inguinal hernia repair with mesh on 04/11/22 H/O thumb surgery H/O umbilical hernia repair History of adenoidectomy (~04/13/77) History of knee replacement (~2016) right knee Hx of tonsillectomy (~04/13/77) S/P patent foramen ovale closure Family History Family History Grandparent Diabetes mellitus Mother Diabetes mellitus Patient's mother is , Onset Age: 81 Family history of glaucoma Family history of congestive heart failure Father Family history of blood dyscrasia Family history of cardiovascular disease Patient's father is , Onset Age: 89 Family history of coronary artery disease Other Family history of arthritis Family history of congenital heart disease Family history of gout Social History Social History Smoking packs per day: 1 Smoking cigarettes per day: 20.0 Years smoked: 20 Smoking pack-years: 20.00 Smoking status: Former smoker Tobacco type: cigarettes Second hand tobacco smoke exposure: No Smoking end date: 07/15/92 Alcohol intake: current Drinks per week: 7 Substance use: never Substance use type: does not use Lack of Transportation: No Lack of Food: Never True Current Housing: I Have Housing Concerned About Future Housing: No Difficulty Paying Gas/Electric Bills: No Difficulty Paying for Meds: No Currently Unemployed: No Education: Master's Degree or Higher Difficulty w/ Childcare or Family Care: No Living arrangements: with
[2023-07-17 08:37] VITALS: BP 162/66; PULSE 61; RESP 16; TEMP 36.9; O2SAT 98
[2023-07-17] MEDS: LACTATED RINGERS 1,000 ML 30 ML IV CONT (08:40)
[2023-07-17 08:48] LABS: Glucose Point of Care 102 mg/dl (65-105)
[2023-07-17] MEDS: ceFAZolin 2 GM/D5W 50 ML 2 GM/50 ML BAG IVPB (09:39)
[2023-07-17] MEDS: LIDO 1%/EPINEPHRINE 1:100,000 50 ML VIAL INFILTRATE (09:56)
[2023-07-17 10:02] VITALS: BP 108/55; PULSE 63; RESP 14; O2SAT 100
[2023-07-17 10:30] VITALS: BP 135/64; PULSE 59; RESP 18
[2023-07-17 11:00] VITALS: BP 129/52; PULSE 55; RESP 18
--- NOTE | 2023-07-17 11:10 | SUR.PHASEII ---
Patient dressed and waiting for ride home.
== END 2023-07-17 11:25 | disposition home or self-care (01) ==
PROVIDERS: PCP Family Medicine; Visit Provider Plastic Surgery
PROC: 01N54ZZ Release Median Nerve, Percutaneous Endoscopic Approach (ICD-10-PCS; CPT 29848; principal; 2023-07-17 10:00)
DX: G56.02 Carpal tunnel syndrome, left upper limb (principal); E78.2 Mixed hyperlipidemia; E11.9 Type 2 diabetes mellitus without complications; Z87.891 Personal history of nicotine dependence; Z86.79 Personal history of other diseases of the circulatory system; Z82.49 Family history of ischemic heart disease and other diseases of the circulatory system
CPT/HCPCS: 29848; 82948; J0690; J2704; J7120

== ENCOUNTER 2023-09-20 08:53 | Outpatient (CLI) | payer MEDICARE, OTHER, SELFPAY ==
[2023-09-20 09:19] LABS: Hematocrit 50.5 % (42.0-52.0); Hemoglobin 16.9 g/dL (14.0-18.0); Mean Corpuscular HGB Conc 33.5 g/dl (32-36); Mean Corpuscular Hemoglobin 33.3 pg (26-34); Mean Corpuscular Volume 99.4 fl (80-100); Mean Platelet Volume 10.1 fl (7.4-10.4); Platelet Count Result 238 k/mm3 (150-375); Red Blood Count 5.08 M/mm3 (4.6-6.20); Red Cell Distribution Width 13.2 % (11.5-14.5); White Blood Count 8.6 K/mm3 (4.5-10.0)
[2023-09-20 09:30] LABS: Alanine Aminotransferase 31 U/L (6-50); Albumin Level 4.1 g/dL (3.5-5.1); Alkaline Phosphatase 88 U/L (38-126); Anion Gap 3 mmol/L (8-16); Aspartate Amino Transferase 37 U/L (17-59); Bilirubin,Total 0.9 mg/dL (0.2-1.3); Blood Urea Nitrogen 20 mg/dL (9-20); Calcium 9.8 mg/dL (8.4-10.2); Carbon Dioxide 31 mmol/L (22-30); Chloride 106 mmol/L (98-107); Cholesterol 94 mg/dL (0-200); Estimated Glomerular Filt Rate > 60; Glucose 103 mg/dL (65-110); HDL Direct 48 mg/dL; Potassium 4.6 mmol/L (3.4-5.0); Sodium 140 mmol/L (137-145); Triglycerides 69 mg/dL (<150)
[2023-09-20 09:41] LABS: LDL Cholesterol Direct 36 mg/dL
[2023-09-20 09:52] LABS: Vitamin D 25 Hydroxy 54.5 ng/mL
[2023-09-20 11:51] LABS: Hemoglobin A1C 6.1 % (<5.7)
== END 2023-09-20 08:54 | disposition home or self-care (01) ==
LOC: ANHLAB 08:55
PROVIDERS: PCP Family Medicine; Visit Provider Nurse Practitioner
DX: E11.40 Type 2 diabetes mellitus with diabetic neuropathy, unspecified (principal); E55.9 Vitamin D deficiency, unspecified
CPT/HCPCS: 36415; 80053; 80061; 82306; 83036; 84443; 85027

== ENCOUNTER 2024-01-10 08:31 | Outpatient (CLI) | payer MEDICARE, OTHER, SELFPAY ==
[2024-01-10 12:50] LABS: Alanine Aminotransferase 33 U/L (6-50); Albumin Level 4.4 g/dL (3.5-5.1); Alkaline Phosphatase 90 U/L (38-126); Anion Gap 4 mmol/L (4-12); Aspartate Amino Transferase 67 U/L (17-59); Bilirubin,Total 1.1 mg/dL (0.2-1.3); Blood Urea Nitrogen 17 mg/dL (9-20); Calcium 9.4 mg/dL (8.4-10.2); Carbon Dioxide 30 mmol/L (22-30); Chloride 106 mmol/L (98-107); Cholesterol 102 mg/dL (0-200); Estimated Glomerular Filt Rate > 60; Glucose 82 mg/dL (65-110); HDL Direct 49 mg/dL; Potassium 4.4 mmol/L (3.4-5.0); Sodium 140 mmol/L (137-145); Triglycerides 76 mg/dL (<150)
[2024-01-10 13:07] LABS: Creatinine Urine 78.3 mg/dL
[2024-01-10 13:16] LABS: LDL Cholesterol Direct 35 mg/dL
[2024-01-10 13:33] LABS: Hemoglobin A1C 5.7 % (<5.7)
[2024-01-10 16:00] LABS: MALB Creatinine Ratio < 7.7 mg/g (0-30); Microalbumin Urine Random < 6.0 mg/L (0-16.7)
== END 2024-01-10 08:32 | disposition home or self-care (01) ==
PROVIDERS: PCP Family Medicine; Visit Provider Nurse Practitioner
DX: E11.40 Type 2 diabetes mellitus with diabetic neuropathy, unspecified (principal)
CPT/HCPCS: 36415; 80053; 80061; 82043; 83036

== ENCOUNTER 2024-03-18 09:55 | Outpatient (CLI) | payer MEDICARE, OTHER, SELFPAY ==
[2024-03-18 10:33] LABS: Anion Gap 9 mmol/L (4-12); Blood Urea Nitrogen 20 mg/dL (9-20); Calcium 9.4 mg/dL (8.4-10.2); Carbon Dioxide 25 mmol/L (22-30); Chloride 106 mmol/L (98-107); Estimated Glomerular Filt Rate > 60; Glucose 89 mg/dL (65-110); Potassium 4.2 mmol/L (3.4-5.0); Sodium 140 mmol/L (137-145)
== END 2024-03-18 09:56 | disposition home or self-care (01) ==
PROVIDERS: Anesthesiology; PCP Family Medicine; Visit Provider Urology
DX: E11.40 Type 2 diabetes mellitus with diabetic neuropathy, unspecified (principal)
CPT/HCPCS: 36415; 80048

== ENCOUNTER 2024-03-19 02:16 | Day surgery (SDC) | payer MEDICARE, OTHER, SELFPAY ==
--- NOTE | 2024-03-11 13:05 | PM.HPGS ---
History of Present Illness History of Present Illness Consent: Risks, benefits, and alternatives have been discussed and questions answered. Patient agrees to proceed with procedure. Chief complaint: Elev PSA Narrative: Greg Pires is a 83 year old male recently found to have a PSA elevation to 24.6. 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 After discussion of options she is elected for a fusion biopsy of the prostate. He is aware of the risks including, but not limited to, failure to diagnose the cancer, hematuria, rectal bleeding and systemic infection. 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 Controlled type 2 diabetes mellitus with diabetic neuropathy Fracture of T8 vertebra Liver abscess due to bacteria Mixed hyperlipidemia Obesity (BMI 30.0-34.9) Peripheral neuropathy Psoas abscess Spinal stenosis, lumbar region with neurogenic claudication Transient cerebral ischemic attack, unspecified Umbilical hernia (~2002) Unilateral primary osteoarthritis, right knee (08/22/16) Surgical History Surgical History H/O prostate biopsy H/O right inguinal hernia repair Open right inguinal hernia repair with mesh on 04/11/22 H/O thumb surgery H/O umbilical hernia repair History of adenoidectomy (~04/13/77) History of knee replacement (~2016) right knee Hx of tonsillectomy (~04/13/77) Presence of right artificial knee joint S/P patent foramen ovale closure Family History Family History Grandparent Diabetes mellitus Mother Diabetes mellitus Patient's mother is , Onset Age: 81 Family history of glaucoma Family history of congestive heart failure Father Family history of blood dyscrasia Family history of cardiovascular disease Patient's father is , Onset Age: 89 Family history of coronary artery disease Other Family history of arthritis Family history of congenital heart disease Family history of gout Social History Social History Smoking packs per day: 1 Smoking cigarettes per day: 20.0 Years smoked: 20 Smoking pack-years: 20.00 Smoking status: Former smoker Tobacco type: cigarettes Second hand tobacco smoke exposure: No Smoking end date: 07/15/92 Alcohol intake: current Drinks per week: 7 Substance use: never Substance use type: does not use Lack of Transportation: No Lack of Food: Never True Current Housing: I Have Housing Concerned About Future Housing: No Difficulty Paying Gas/Electric Bills: No Difficulty Paying for Meds: No Currently Unemployed: No Education: Master's Degree or Higher Difficulty w/ Childcare or Family Care: No Living arrangements: with family Occupation/Education: retired Gender identity (if verbalized by the patient): Male Sexual Orientation (if Verbalized by the Patient): Straight or Heterosexual Spiritual care concerns: No Meds Home Medications and Allergies Home Medications Medication Instructions Recorded Confirmed Type aspirin 81 mg tablet,delayed 81 mg PO DAILY 12/17/19 01/17/24 History release (Aspir-) lisinopril 5 mg tablet 5 mg PO QAM 12/17/19 01/17/24 History multivit-mn-
[2024-03-13 11:18] VITALS: BMI 30.2
--- NOTE | 2024-03-13 11:34 | PC.NURSE ---
Report to the Outpatient Waiting Room, entrance under the green pavilion located off [facility], at time _8:30AM_ on date _03/19/24_. Planned Procedure Time: __10:30AM .? Time changes happen often and if your time is changed the preop area will call you the afternoon before. - You and your visitor will be asked to self-screen and do not enter if you have any COVID symptoms. Please call surgeon if you need to reschedule. - A mask is optional within the hospital at this time. Patients may have clear liquids (water, carbonated beverages, clear teas, apple juice) until 3 hours prior to surgery with a maximum of 20 ounces. - No food from midnight until time of surgery and no smoking. Take only the following medications with a SIP of water on the morning of surgery: ____CIPRO, GABAPENTIN. DO NOT STOP ANY OF YOUR OTHER PRESCRIPTION MEDICATIONS PRIOR TO SURGERY EXCEPT THE FOLLOWING Medications to discontinue per physician HOLD ASPIRIN & ALL VITAMINS/SUPPLEMENTS 7 DAYS PRE-OP PER DR GEORGE____ Date to take last dose Please no make-up, nail chinese, hairspray, perfume, deodorant, or body powder the day of surgery.? No jewelry (including any body piercings) or valuables the day of surgery, leave them at home.? Please take a shower or bath the night before, or the morning of, surgery with an antibacterial soap.? Wear comfortable, loose fitting clothing.? - Jewelry must be removed prior to entering the operating room.? Rings and piercings that are not removed may be cut off. - The hospital will not accept responsibility for valuables.? - Please leave all valuables, including medications, at home the day of surgery. If you are going home after surgery, a licensed school bus driver/teacher assistant must drive you home.? - NO public transportation without another adult if you receive anesthesia. - We recommend that an adult stay with you for 24 hours following discharge. - We also recommend that you do not drive, make important decision, drink alcoholic beverages, or take any drugs that were not prescribed by your health care provider for at least 24 hours after your discharge time. Follow any additional instructions given to you from your surgeon. FLEETS ENEMA MORNING OF SURGERY PER DR GEORGE Telephone instructions given to ____PATIENT and asked if any additional questions and then verbalized understanding. Patient advised to call surgeon office or pre surgery nurse liaison [phone] if any additional questions.
--- NOTE | 2024-03-19 01:02 | WPDHPUPDATE1 ---
History and Physical Update Update Date/Time: 03/19/24 01:02 History and Physical has been reviewed, including an updated exam of the patient. There are NO changes in the patient's condition. Risks, benefits, and alternatives have been discussed and questions answered. Patient agrees to proceed with procedure.
[2024-03-19] MEDS: LACTATED RINGERS 1,000 ML 30 ML IV CONT (09:00)
[2024-03-19 09:06] LABS: Glucose Point of Care 105 mg/dl (65-105)
[2024-03-19 09:22] VITALS: BP 122/56; PULSE 69; RESP 18; TEMP 37; O2SAT 98
--- NOTE | 2024-03-19 10:42 | WPDANESEPPF ---
Anes - Initial Pre Proc Eval Procedure: Operation Date: 03/19/24 10:30 Proposed Procedures p Trans Rectal Ultrasound Fusion Guided Prostate Biopsy - Shelton Posada MD Date/Time: 03/19/24 10:42 Surgeon: Shelton Posada MD Pre Op Diagnosis: Elev PSA Patient Data Age: 83 Gender: M Height: 1.68 m Weight: 79.2 kg Last Vital Signs Temp 37.0 C 03/19/24 09:22 Pulse 69 03/19/24 09:22 Resp 18 03/19/24 09:22 BP 122/56 L 03/19/24 09:22 Pulse Ox 98 03/19/24 09:22 O2 Del Method Room Air 03/19/24 09:22 Allergies Allergy/AdvReac Type Severity Reaction Status Date / Time Jasmyn Nut Allergy Severe FACIAL Uncoded 03/19/24 09:19 SWELLING, ITCHING,SWOLLEN EYES,REQURIED BENADRYL Home Medications Medication Instructions Recorded Confirmed Type aspirin 81 mg tablet,delayed 81 mg PO DAILY 12/17/19 03/19/24 History release (Aspir-) lisinopril 5 mg tablet 5 mg PO QAM 12/17/19 03/19/24 History mvsxvviq-be-neatc 300 mcg-K 60 1 tablet PO DAILY 12/17/19 03/19/24 History mcg-lycop 600 mcg-lutein 300 mcg tablet (Centrum Silver Ultra Men's) atorvastatin 40 mg tablet 40 mg PO DAILY 06/09/21 03/19/24 History omega 5-tad-trk-fish oil 1,000 mg 1 cap PO DAILY 12/26/21 03/19/24 History (120 mg-180 mg) capsule (Fish Oil) ascorbic acid (vitamin C) 500 mg 500 mg PO DAILY 04/05/22 03/19/24 History capsule ginseng 100 mg capsule 100 mg PO DAILY 04/05/22 03/19/24 History gabapentin 300 mg capsule 300 mg PO TID #270 caps 02/05/24 03/19/24 Rx metformin 500 mg tablet,extended See Rx Instructions .Route 03/02/24 03/19/24 Rx release 24 hr .COMPLEX #90 tabs ciprofloxacin HCl 500 mg tablet 500 mg PO Q12H 03/13/24 03/19/24 History vitamin E 200 unit capsule 180 mg PO DAILY 03/13/24 03/19/24 History Laboratory Tests 03/19/24 09:02 POC Capillary Glucose 105 mg/dl (65-105) Patient hx anesthesia problems: none Family hx anesthesia problems: none Results Review: All pre-operative results and documents have been reviewed as part of the pre-operative evaluation. 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 Fracture of T8 vertebra Liver abscess due to bacteria Mixed hyperlipidemia Obesity (BMI 30.0-34.9) Peripheral neuropathy Psoas abscess Spinal stenosis, lumbar region with neurogenic claudication Transient cerebral ischemic attack, unspecified Umbilical hernia (~2002) Unilateral primary osteoarthritis, right knee (08/22/16) Surgical History Surgical History H/O prostate biopsy H/O right inguinal hernia repair Open right inguinal hernia repair with mesh on 04/11/22 H/O thumb surgery H/O umbilical hernia repair History of adenoidectomy (~04/13/77) History of knee replacement (~2016) right knee Hx of tonsillectomy (~04/13/77) Presence of right artificial knee joint S/P patent foramen ovale closure Family History Family History Grandparent Diabetes mellitus Mother Diabetes mellitus Patient's mother is , Onset Age: 81 Family history of glaucoma Family history of congestive heart failure Father Family history of blood dyscrasia Family history of cardiovascular disease Patient's father is , Onset Age: 89 Family history of coronary artery disease Other Family history of arthritis Family history of congenital heart disease Family history of gout Social History Social History Smoking packs per day: 1 Smoking cigarettes per day: 20.0 Years smoked: 30 Smoking pack-years: 30.00 Smoking status: Former smoker To
[2024-03-19 11:27] VITALS: BP 86/50; PULSE 64; RESP 14; O2SAT 97
--- NOTE | 2024-03-19 11:34 | W.PM.PROC2 ---
Procedure Note - Detailed Date of Procedure 03/19/24 Pre-op Diagnosis Elevated PSA Post-op Diagnosis Same Procedure Performed [place] prostate biopsy Surgeon Shelton Posada MD Anesthesia MAC Description of Procedure Patient is brought to the operative suite where he is positioned in the left lateral position. Systemic sedation is administered per the anesthesia department. Surgical time-out is undertaken and it's verified the patient has received preoperative antibiotics. Transrectal ultrasonography is undertaken with a standard transrectal probe. The [employer] system is used to superimpose his previously obtained mpMRI prostate images on the real-time transrectal ultrasond images. On the previous mpMRI there is one region of interest. Using the transrectal needle design for prostate biopsies 3 cores from each region of interest her obtain. We then proceeded with a standard 12 core prostate biopsy. Transrectal probe was removed and patient taken to recovery room having tolerated the procedure well. Blood loss was less than 10 cc. Urine Output 150 Drains No Packing No Pathology Yes
[2024-03-19 11:44] LABS: Glucose Point of Care 94 mg/dl (65-105)
[2024-03-19 11:45] VITALS: BP 93/53; PULSE 74; RESP 16
[2024-03-19 12:15] VITALS: BP 101/56; PULSE 60; RESP 16
== END 2024-03-19 12:30 | disposition home or self-care (01) ==
PROVIDERS: PCP Family Medicine; Visit Provider Urology
PROC: (CPT 55700; principal; 2024-03-19 10:30)
DX: R97.20 Elevated prostate specific antigen [PSA] (principal); E11.40 Type 2 diabetes mellitus with diabetic neuropathy, unspecified; G56.03 Carpal tunnel syndrome, bilateral upper limbs; I63.443 Cerebral infarction due to embolism of bilateral cerebellar arteries; E78.2 Mixed hyperlipidemia; G62.9 Polyneuropathy, unspecified; M48.062 Spinal stenosis, lumbar region with neurogenic claudication; M17.11 Unilateral primary osteoarthritis, right knee; Z79.82 Long term (current) use of aspirin; Z79.84 Long term (current) use of oral hypoglycemic drugs; Z98.890 Other specified postprocedural states; Z87.891 Personal history of nicotine dependence; Z86.73 Personal history of transient ischemic attack (TIA), and cerebral infarction without residual deficits; Z82.49 Family history of ischemic heart disease and other diseases of the circulatory system
CPT/HCPCS: 76872; 55700; 82948; G0416; J2704; J3010; J7120

== ENCOUNTER 2024-09-21 07:58 | Outpatient (CLI) | payer MEDICARE, OTHER, SELFPAY ==
--- OUTSIDE RECORDS SUMMARY | 2024-09-21 08:07 | XMS_ITS | Encounter Summary ---
Author Name [facility] Organization [facility] [place] Address [address] [place] [address] Care Team Providers Care Executive Assistant Name Role Phone ANGELA ARREDONDO Primary Care Provider Unavailab le Insurance Providers: All historical and current Section Date Range: From patient's date of to the date document was created. This section includes the names of all active insurance providers for the patient. Insurance Provider Type of Coverage Plan Name Start of Policy Coverage End of Policy Coverage Group Number Member ID Insurance Provider's Telephone Number Policy Barone's Name Patient's Relationship to Policy Barone MEDICARE (WNR) MEDICARE (M) PART A Apr 14, 2005 PART A [id number] Ti SKY PATIENT MEDICARE (WNR) MEDICARE (M) PART B Apr 14, 2005 PART B [id number] [phone] [id number] Ti SKY PATIENT Selected Encounter This section includes the information on record at [place] for the Encounter. Date/Time Encounter Type Encounter Description Reason Provider Source Aug 24, 2024 02:00 PM OFFICE O/P EST MOD 30 MIN OPTOMETRY ICD-10-CM H40.013 Open angle with borderline findings, low risk, bilateral CHIVETTA,YAS BATSHEVA IHE Encounter Template Text not used by [place] Assessments - Encounter Diagnoses This section includes the primary and secondary diagnoses documented for the Encounter. Date/Time Primary/Secondary Diagnosis Diagnosis Name Provider Source Aug 25, 2024 12:07 PM PRIMARY Open angle with borderline findings, low risk, bilateral YAS BRAGG [facility] Aug 25, 2024 12:07 PM SECONDARY Age-related nuclear cataract, bilateral YAS BRAGG [facility] Aug 25, 2024 12:07 PM SECONDARY Other retinoschisis and retinal cysts, left eye YAS BRAGG [facility] Aug 25, 2024 12:07 PM SECONDARY Presbyopia YAS BRAGG [facility] Aug 25, 2024 12:07 PM SECONDARY Type 2 diabetes mellitus without complications YAS BRAGGRICIA [facility] Plan of Treatment: Future Appointments (+ 6 months) and Future Tests (+/- 45 days) The Plan of Treatment section includes future care activities for the patient [facility] [place] [facility] This section includes future appointments and future orders which are active, pending or scheduled. Future Appointments This section includes appointments that were scheduled to occur 6 months from the date of the Encounter, up to a maximum of 20 appointments. The data comes from all [place] treatment facilities. Appointment Date/Time Appointment Type Appointme nt Facility Name Sep 14, 2024 11:00 AM AMBULATORY - MEDICINE [facility] Oct 09, 2024 10:00 AM AMBULATORY - SURGERY [facility] Feb 15, 2025 03:00 PM AMBULATORY - SURGERY [facility] Encounter Notes: All associated encounter notes This section contains the clinical notes associated to the Encounter. Date/Time Encounter Note(s) Provider Source Aug 24, 2024 03:20 PM OPTOMETRY CONSULT: LOCAL TITLE: OPTOMETRY CONSULT [facility] STANDARD TITLE: OPTOMETRY CONSULT DATE OF NOTE: AUG 24, 2024@15:20 ENTRY DATE: AUG 24, 2024@15:20:45 AUTHOR: YAS BRAGG COSIGNER: URGENCY: STATUS: COMPLETED Ocular Coherence Tomography Report Date: 08/24/24 Reason for Order: 1. GLS 2. retinoschisis OS Images available for viewing in [employer] RNFL OCT Interpretation: Reliability: good OD: temp borderline thinning OS: temp borderline thinning (thinning focally at 4 oc) disc area 3.12 OD, 2.83 OS OU: stable to 2021, megalopapillae Macula OCT Interpretation: Reliability: good OD: foveal contour intact, mild VMT c ERM greatest sup isolated drusen c pigment migration sup-nasal OS: foveal contour intact, mild VMt, GCC OD: sup-nasal thinning, inf-nasal borderline OS: 360 diffuse thinning OCT raster OS: inferior bullous retinoschisis /es/ YAS BRAGG, OD Staff Physician, Optometry Signed: 08/25/2024 12:07 YAS BRAGG [facility] Aug 24, 2024 02:01 PM OPTOMETRY NOTE: LOCAL TITLE: OPTOMETRY NOTE STANDARD TITLE: OPTOMETRY NOTE DATE OF NOTE: AUG 24, 2024@14:01 ENTRY DATE: AUG 24, 2024@14:01:30 AUTHOR: YAS BRAGG EXP COSIGNER: URGENCY: STATUS: COMPLETED Last seen 02/25/2024 Reason for visit: DFE/OCT/IOP check CC: 1. Pt reports vision is slightly blurry OU dist and near current specs 1 year old no new floaters or flashes 2. Concern c DM has not seen Dr. Augusto Molina (outside PCP) in a few months not insulin dependent, only on 500mg metformin qday x 15 years dx (+)agent orange exposure only checks BG when goes to drs office last a1c 5.9 Ocular meds: none Ocular ROS: 1. Glaucoma Suspect OU 2. Hx of T2DM without ocular manifestations OU - Last A1c 5.9% 3. Hx of Retinoschisis OS (Assessed to extent today) 4. Cataracts OU (Assessed to extent today) 5. Refractive Error with Presbyopia OU Family OcHX: (-) blindness (-) glaucoma (-) AMD (-) RD Cardiovascular ROS: no change from problem & medication lists CPRS Problem list, medications and allergies reviewed: CPRS Serology for Diabetes No GLUCOSE EO data found No HEMOGLOBIN A1C EO data found Cardiovascular BP: 131/70 (09/13/2023 14:39) Pulse: 65 (09/13/2023 13:56) Neuro: Orientation: Normal Psych: Mood/Affect: Normal Depression/suicide ideation: NO VISUAL ACUITY With correction Distance Visual Acuity OD 20/30 OS 20/25- Pupils PERRL OU (-)APD Confrontation: FTFC OU Extra-Ocular Muscles Full OU (-)pain (-)diplopia Externals/adnexa: Unremarkable OU Refraction 2/20/24 OD: +4.00-3.43p134 20/25+2 OS: +3.25-1.11j359 20/20 Add: +2.50 auto +4.00-2.08t724 +3.50-1.97p063 Refraction: 2/10/25 OD +4.25-3.16r839 20/20- OS +3.50-1.97g322 20/20 Add: + 2.50 TF c transitions; AR coating SLIT LAMP EXAMINATION Lids/Lashes/Lacrimal No blepharitis OU Conjunctiva/Sclera White/quiet OU Cornea/Tear Film Clear OU Ant Chamber Deep and quiet OU Iris Normal, (-)NVI OU Lens 2+ NS cataract OU Intraocular Pressures (Goldmann) 1 gtt fluress OD: OS: Time: Meds: 10/01/2018 16 16 1:15PM none 04/01/2018 15 16 9:30AM none 04/23/2019 14 13 1:40PM none 04/20/20 14 14 1:53PM none 4/6/21 14 16 1407pm 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, 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 09/18/21 13 14 328 none, 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 09/13/2022 14 13 1408 none 03/12/23 13 14 1427 none 09/03/23 16 14 1518 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, 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 02/25/2024 14 13 1514 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, 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 08/24/24 12 14 1434 none GONIOSCOPY 03/12/23 OD: open to CB 360, slight convex approach, no AR/PAS/NVA OS: open to CB 360, slight convex approach, no AR/PAS/NVA RETINAL EVALUATION 1 phenyleph 2.5%, 1 trop 1% OU DFE Dilated retinal exam Optic Nerve OD 0.65/0.70v CDR Flat, pink, distinct (-)NVD, tilted, thinner sup OS 0.65 CDR Flat, pink, distinct (-)NVD, tilted Vessels: 2/3 OU Macula: OD: Flat, intact (-)CSME OS: Flat, intact (-)CSME Posterior Pole: OD: (-)hemes (-)CWS (-)NVE OS: (-)hemes (-)CWS (-)NVE; (+)small areas RPE dropout along S/T arcades Periphery: OD: (-)holes, tears, RDs 360 OS: bullous retinoschisis IT/TEMP without holes/tears/SRF Vitreous: syneresis OU Assessment/Plan 08/24/24 1. Glaucoma Suspect OU vs. megalopapillae c tilted ONH OU (likely) CDR appears stable however inferior rim appears thin OD IOP 12/14 untreated thin CCT 463/482 gonio 02/2023 wide open despite patient being moderate hyperope OCT RNFL/GCC 08/2024 OD: temp borderline thinning OS: temp borderline thinning, focal thinning 4 o'c OU: stable to 2021 GCC 08/2024: shelia/sup shelia thinnning OD, diffuse thinning OS HVF 24-2 (02/25/2024) low reliablility OU OD: glaucomatous defects OS: two nasal edge points, paracentral defects worse sup-shelia Edu pt on all findings, defer tx, IOP adequate at this time. RTC 6 mo for IOP/HVF - if stable consider extending f/u 2. Diabetes without retinopathy Last A1C 5.9 (-)CSME/DME on clinical exam Pt ed on the importance of tight bg control Recommend A1C <7% to reduce risk of ocular complications 3. Cataracts OU mildly visually significant Defer cataract extraction until signs/sx indicate 4. Retinoschisis OS Pt asymptomatic Appears stable - fundus photos prior OCT raster today over area confirms Reviewed s/s of RD and instructed patient to RTC STAT Monitor with yearly DFE 5. Refractive error/Presbyopia increase in bva w/refraction Order new glasses Ed. pt on all findings RTC in 6mo for HVF/IOP check /es/ YAS BRAGG, OD Staff Physician, Optometry Signed: 08/25/2024 12:07 YAS BRAGG [facility]
--- OUTSIDE RECORDS SUMMARY | 2024-09-21 08:07 | XMS_ITS | Encounter Summary ---
Author Organization [facility] Health Address [address] [place] [address] Care Team Providers Care Sleeve Separator Name Role Phone Augusto Molina MD Primary Care Provider [phone] Augusto Molina MD Primary Care Provider [phone] Augusto Molina MD Unavailable [phone] Nadine Goldstein MD Unavailable [phone] Reason for Visit * Reason Onset Date Comments Pre Authorization 11/10/2018 Encounter Details Date Type Department Care Team (Late st Contact Info) Description 11/10/2018 Telephone [facility] [facility] [address] [place], [place] [id number] Noris Lu Pre Authorization Social History Tobacco Use Types Packs/Day Years Used Date Smoking Tobacco: Former Smokeless Tobacco: Never Alcohol Use Standard Drinks/Week Comments Yes 3 (1 standard drink = 0.6 oz pur e alcohol) Sex and Gender Information Value Date Recorded Sex Assigned at Not on file Gender Identity Not on file Sexual Orientation Not on file documented as of this encounter Functional Status Functional Status Response Date of Assess ment Is person deaf or have serious hearing difficult y? No 05/14/2018 Is person blind or have serious difficulty seein g? No 05/14/2018 Does person have serious dif ficulty walking/climbing stairs? No 05/14/2018 Does person have difficulty dressing/bathing? No 05/14/2018 Does person have difficulty doing errands alone? No 05/14/2018 Cognitive Status Response Date of Assessm ent Does person have difficulty concentrating/remembering/making decisions? No 05/14/2018 documented as of this encounter Miscellaneous Notes * Telephone Encounter - Noris Lu - 11/10/2018 2:52 PM CDT Images from the original note were not included. Insurance Company: [employer] Phone Number: Rn Intake: Requesting Provider: [employer]UG[employer] Rendering Facility/Provider: [facility] R[facility] Facility/Provider NPI/TAX ID: [id number] Date of Service: 11/19/18 Pending Reference Number: Approved Authorization Number: Approved Date Span: TO Additional Notes: NO AUTH REQ Noris Lu [facility] documented in this encounter Plan of Treatment Upcoming Encounters Date Type Department Care Team (Late st Contact Info) Description 09/22/2024 10:00 AM CDT Ancillary Procedure [facility] [address] [phone] 09/22/2024 11:20 AM CDT Office Visit [facility] Cardiology [address] [facility], [address] [address] Betsy Capone MD [address] [address] documented as of this encounter Visit Diagnoses Not on filedocumented in this encounter Additional Health Concerns Infection Onset Date Last Indicated Resolved Time COVID-19 Under Investigation 04/04/2021 04/04/2021 04/04/2021 2:09 PM CDT documented as of this encounter Care Teams Sleeve Separator Relationship Specialty Start Date End Date Augusto Molina MD [address] [place] [phone] PCP - General 01/27/18 04/02/21 Augusto Molina MD [address] [place] [phone] PCP - General Family Medicine 04/03/21 Augusto Molina MD [address] [place] [phone] 04/03/21 Nadine Goldstein MD [address] [place] [phone] Neurologist Neurology 11/24/17 documented as of this encounter
--- OUTSIDE RECORDS SUMMARY | 2024-09-21 08:07 | XMS_ITS | Encounter Summary ---
Author Organization [facility] Health Address [address] [facility] [address] Care Team Providers Care Service Girl Name Role Phone Augusto Molina MD Primary Care Provider [phone] Augusto Molina MD Primary Care Provider + [phone] Augusto Molina MD Unavailable [phone] Nadine Goldstein MD Unavailable Reason for Visit * Reason Onset Date Comments MEDICATION REFILL 04/02/2019 Encounter Details Date Type Department Care Team (Late Contact [facility]) Description 04/02/2019 Refill [facility] [address] [place] [address] Nadine Goldstein MD [address] OF NEUROLOGY [phone] MEDICATION REFILL Social History Tobacco Use Types Packs/Day Years [...] No 05/14/2018 documented as of this encounter Plan of Treatment Upcoming Encounters Date Type Department Care Team (Late st Contact Info) Description 09/22/2024 10:00 AM CDT Ancillary Procedure [facility] [address] [facility], [address] [phone] 09/22/2024 11:20 AM CDT Office Visit [facility] Cardiology [address], [address] [phone] Betsy Capone MD [address] [facility] [address] [address] documented as of this encounter Visit Diagnoses Not on filedocumented in this encounter Additional Health Concerns Infection Onset Date Last Indicated Resolved Time COVID-19 Under Investigation 04/04/2021 04/04/2021 04/04/2021 2:09 PM CDT documented as of this encounter Care Teams Service Girl Relationship Specialty Start Date End Date Augusto Molina MD [address] [place] [phone] PCP - General 01/27/18 04/02/21 Augusto Molina MD [address] [place] [phone] PCP - General Family Medicine 04/03/21 Augusto Molina MD [facility] [place] [phone] 04/03/21 Nadine Goldstein MD [address] [place] [phone] Neurologist Neurology 11/24/17 documented as of this encounter
--- OUTSIDE RECORDS SUMMARY | 2024-09-21 08:07 | XMS_ITS | Clinical Summary ---
Author Organization [facility] Address [address], [facility] [address] [place] [address] Phone Care Team Providers Care Change Management Specialist Name Role Phone Augusto Molina MD Primary Care Provider [phone] Gil Madison DO Unavailable [phone] Social History Tobacco Use Types Packs/Day Years Used Date Smoking Tobacco: Never Assessed Sex and Gender Information Value Date Recorded Sex Assigned at Not on file Legal Sex Male 9:45 PM CDT Gender Identity Not on file Sexual Orientation Not on file Plan of Treatment Health Maintenance Due Date Last Done Comments Hepatitis C Virus (HCV) Screening 1940 Pneumococcal Immunization (50+ years) (1 of 1 - PCV) 1990 Zoster Immunization (1 of 2) 1990 Respiratory Syncytial Virus (RSV) Immunization (Adult) (1 - 1-dose 75+ series) 2015 Influenza Immunization (#1) 03/15/202404/14, 04/24/2018 SARS-COV-2 Immunization (2 - season) 2024 04/16/2021 DTaP/Tdap/Td Immunization Discontinued 12/17/2019 TdaP Immunization Completed 12/17/2019 Hepatitis B Immunization Aged Out No longer eligible based on patient's age to complete this topic Meningococcal Immunization (ACWY) Aged Out No longer eligible based on patient's age to complete this topic Rotavirus Immunization Aged Out No lo nger eligible based on patient's age to complete this topic Insurance MEDICARE Care Teams Change Management Specialist Relationship Specialty Start Date End Date Augusto Molina MD [address] [place] [address] [address] [place] [address] PCP - General Family Medicine 03/31/18 Gil Madison DO [address] [place] [address] [address] [place] [address] Gastroenterology 03/31/18
--- OUTSIDE RECORDS SUMMARY | 2024-09-21 08:07 | XMS_ITS | Clinical Summary ---
Author Organization [facility] Address [address] [facility] [place] [address] Care Team Providers Care Electricians Top Helper Name Role Phone Augusto Molina MD Primary Care Provider [phone] Augusto Molina MD Unavailable [phone] Nadine Goldstein MD Unavailable Source Comments [facility],non-owned Affiliates and Associated Physician Practices is amultiple site organization consisting of ambulatory clinics and hospital sitesin [place], [place], [place] and [place]. This disclosure is being madepursuant to the Care Everywhere program and may not contain all information available regarding this patient. Last updated 18.[facility] Allergies Active Allergy Reactions Criticality Noted Date Comments Tree Nuts Anaphylaxis,Rash High 01/27/2018 Medications * Be aware that medications may not be up to date on this document. Alwaysverify current medications with the patient. Medication Sig Dispensed Refills Start Date End Date Status Gelatin 600 MG Take 500 mg by mouth once daily Active Ascorbic Acid (VITAMIN C) 500 MG Take 1 capsule by mouth once daily Active Ginseng 250 MG Take 1 capsule by mouth once daily Active vitamin E (Tocopheryl) 400 UNIT capsule Take 1 (one) capsule by mouth once daily Active aspirin (ASPIRIN) 81 MG chew tablet Take 1 (one) tablet by mouth once daily Active metFORMIN ER 24hr (GLUCOPHAGE XR) 500 MG tablet Take 1 (one) tablet by mouth daily with dinner Active Multiple Vitamins-Minerals (MULTI-VITAMIN/MINERAL S) TABS Take 1 (one) tablet by mouth Active Glucosamine-Chondroit- Vit C-Mn (GLUCOSAMINE CHONDROITIN COMPLX) CAPS Active gabapentin (Neurontin) 300 MG capsule Take 1 (one) capsule by mouth 3 times daily 90 capsule 10/09/2022 Active atorvastatin (Lipitor) 40 MG tabletIndications:Hype rlipidemia, unspecified hyperlipidemia type TAKE 1 TABLET AT BEDTIME 90 tablet 3 12/06/2023 Active lisinopril (Prinivil; Zestril) 5 MG tabletIndications:Hype rtension, unspecified type TAKE 1 TABLET DAILY 90 tablet 3 12/06/2023 Active Active Problems Problem Noted Date Diagnosed Date 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 -Pt instructed to call if he has reoccurring symptoms of retention or other concerns. -F/U prn Benign prostatic hyperplasia with lower urinary tract symptoms 06/27/2020 Insomnia, unspecified 06/27/2020 Low back pain 06/27/2020 Male erectile dysfunction, unspecified 0 Obesity, unspecified 06/27/2020 Presence of urogenital implants 06/27/2020 Cryptogenic stroke 06/21/2020 Type 2 diabetes mellitus 06/21/2020 Spinal epidural abscess 06/21/2020 Overview (04/05/2021): Last Assessment & Plan: Summary: 80 y.o. 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 - s/p 8 weeks of Ceftriaxone (06/21/20 --> 08/16/20) PLAN - Firm stop on antimicrobials today. No need for PO suppression since no HW in place. --> PICC removed in clinic today - Recommend ambulatory colonoscopy with his PCP as origin of the infection remains unclear, although likely transient bacteriemia from oral/gut source given the isolated organism. 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, lumbar region 020 Psoas muscle abscess 06/20/2020 Fitting and adjustment of spectacles and contact lenses 03/25/2020 HTN (hypertension) 09/10/2017 Cerebral infarction due to u nspecified occlusion or stenosis of unspecified cerebral artery 04/07/2017 Cerebrovascular accident (CV A) involving posterior circulation 04/07/2017 PFO (patent foramen ovale) TIA (transient ischemic attack) Resolved Problems Problem Noted Date Diagnosed Date Resolved Date Fever 04/04/2021 04/19/2021 Atrial septal defect 09/10/2017 018 Encounters Date Type Department Care Team Description 09/11/2024 Orders Only [facility] - Cardiology [address] [facility], [facility] [address] [place] [address] Ruperto Olmos RN Aortic valve stenosis, etiology of cardiac valve disease unspecified ; PFO (patent foramen ovale) (HCC) from Last 3 Months Immunizations Name Administration Dates Next Due TransLattice primary monoval ent 12+ yr 0.3mL Purple cap 04/16/2021,08/23/2020,08/02/2020 INFLUENZA VACCINE 04/14/2020, 9,04/17/2018,2016 INFLUENZA VACCINE, HIGH-DOSE , QUADR. (FLUZONE HIGH-DOSE QUADRIVALENT; 65Y+), 0.7 ML (HD-IIV4) 04/24/2018,03/25/2018 PNEUMOCOCCAL PPSV23 07/15/2015 Pneumococcal Pcv13 Conj 07/15/2014 TDAP (7yrs+) 12/17/2019,08/22/2017 iNFLUENZA VACCINE, RECOM-LITTLEJOHN, QUADR. (FLUBLOCK QUADRIVALENT; 18Y+) (RIV4) 05/01/2019 Family History Medical History Relation Name Comments Depression Neg Hx Seizures Neg Hx Social History Tobacco Use Types Packs/Day Years Used Date Smoking Tobacco: Former Smokeless Tobacco: Never Tobacco Cessation:Counseling Given: Not Answered Alcohol Use Standard Drinks/Week Comments Yes 1 (1 standard drink = 0.6 oz pur e alcohol) PHQ-2 Answer Date Recorded PHQ2 TOTAL SCORE 0 2021 Sex and Gender Information Value Date Recorded Sex Assigned at Not on file Gender Identity Not on file Sexual Orientation Not on file Last Filed Vital Signs Vital Sign Reading Time Taken Comments Blood Pressure 110/68 09/24/2023 11:17 AM CDT Pulse 65 09/24/2023 11:17 AM CDT Temperature 36.7 C (98.1 F) 10/10/2021 10:31 AM CDT Respiratory Rate 20 05/29/2021 1:20 PM RESOURCE 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 Oxygen Saturation 100% 09/24/2023 11:17 AM CDT Inhaled Oxygen Concentration - - Weight 89.8 kg (198 lb) 09/24/2023 11:17 AM CDT Height 167.6 cm (5' 6 ) 09/24/2023 11:17 AM CDT Body Mass Index 31.96 09/24/2023 11:17 AM CDT Plan of Treatment Upcoming Encounters Date Type Department Care Team (Late st Contact Info) Description 09/22/2024 10:00 AM CDT Ancillary Procedure [facility] - Echosonography [address] [phone] 09/22/2024 11:20 AM CDT Office Visit [facility] - Cardiology [address] [facility], [place] [id number] [place] [address] Betsy Capone MD [address] [address] Health Maintenance Due Date Last Done Comments MEDICARE AWV 12 MONTHS 1940 ZOSTER VACCINE (1 of 2) 1990 Respiratory Syncytial Virus (RSV) Vaccine Pt: or over 60 yrs (1 - 1-dose 75+ series) 2015 DIABETES RETINOPATHY SCREENING 04/05/2021 DIABETES-FOOT EXAM WITH MONOFILAMENT 04/05/2021 DIABETES-HGB A1C 10/05/2021 04/07/2021, 02/2020, 04/07/2017 DIABETES-SERUM CREATININE 04/15/20222020, 04/14/2021, 04/13/2021, Additional history exists COVID-19 VACCINE ( season) 2024 04/16/2021, 08/23/2020, 08/02/2020 INFLUENZA VACCINE (#1) 2024 , 05/01/2019, 04/14/2019, Additional history exists DEPRESSION SCREENING 07/15/2024 DIABETES - URINE PROTEIN SCREENING 07/15/2024 DTAP/TDAP/TD VACCINES (3 - Td or Tdap) 12/16/2029 12/17/2019, 08/22/2017 PNEUMOCOCCAL VACCINE 50+ Completed 07/15/2015, 07/2014 HEPATITIS B VACCINE Aged Out No longe r eligible based on patient's age to complete this topic HIB VACCINE Aged Out No longer eligi ble based on patient's age to complete this topic HPV VACCINE Aged Out No longer eligi ble based on patient's age to complete this topic MENINGOCOCCAL (Group B) VACCINE Aged Out No longer eligible based on patient's age to complete this topic MENINGOCOCCAL VACCINE Aged Out No maritza dean eligible based on patient's age to complete this topic Medical Devices Implanted Type Area Construction Executive Device Identifier Shelf Expiration Date Model / Serial / Lot Occl Sept Cribifrm 18mm Implanted:Qty: 1 on 05/13/2018 by Augusto Estrada MD at [facility] [employer] 12/12/2022 [id number] Procedures Procedure Name Priority Date/Time Associated Diagnosis Comments COMPREHENSIVE METABOLIC PANEL AM Draw 04/15/2021 8:22 AM CDT HEMOGLOBIN A1C Routine 04/07/2021 11:21 AM CDT from Last 3 Months or Most Recently Relevant to Health Maintenance Results * (ABNORMAL) COMPREHENSIVE METABOLIC PANEL (04/15/2021 8:22 AM [facility]) BUN 13 7 - 26 mg/dL 04/15/2021 9:49 AM [facility] Creatinine 0.81 0.71 - 1.16 mg/dL 04/15/2021 9:49 AM [facility] Sodium 140 136 - 145 mmol/L 04/15/2021 9:49 AM [facility] Potassium 3.9 3.5 - 4.5 mmol/L 04/15/2021 9:49 AM [facility] Chloride 108(H) 98 - 107 mmol/L 04/15/2021 9:49 AM [facility] CO2 25 22 - 29 mmol/L 04/15/2021 9:49 AM [facility] Glucose 94 70 - 115 mg/dL 04/15/2021 9:49 AM [facility] Calcium 8.8 8.4 - 10.2 mg/dL 04/15/2021 9:49 AM [facility] Protein Total 6.0 6.0 - 8.3 g/dL 04/15/2021 9:49 AM [facility] Albumin 2.1(L) 3.4 - 5.0 g/dL 04/15/2021 9:49 AM [facility] Bilirubin Total 0.4 0.2 - 1.2 mg/dL 04/15/2021 9:49 AM [facility] Alkaline Phosphatase 202(H) 40 - 150 U/L 04/15/2021 9:49 AM [facility] ALT 41 5 - 55 U/L 04/15/2021 9:49 AM [facility] AST 35(H) 5 - 34 U/L 04/15/2021 9:49 AM [facility] Anion Gap 11 8 - 18 04/15/2021 9:49 AM [facility] BUN/Creatinine Ratio 16 7 - 23 04/15/2021 9:49 AM [facility] Osmolality Calculated 290 270 - 300 mOsm/kg 04/15/2021 9:49 AM [facility] Albumin/Globulin Ratio 0.5(L) 1.1 - 2.3 04/15/2021 9:49 AM CDT [facility] eGFR by CKD-EPI 84(L) >=90 mL/min/1.7 3 m2 04/15/2021 9:49 AM CDT [facility] Blood BLOOD SPECIMEN / Unknown Lab Venipuncture / Unknown 04/15/2021 8:22 AM CDT 04/15/2021 9:25 AM CDT Laina Sanchez PA-C LAB - CHEMISTRY LYUDMILA ZAMAN [facility] [address] [place] [address], [facility] [phone] * HEMOGLOBIN A1C (04/07/2021 11:21 AM CDT) Hemoglobin A1c 6.3 4.4 - 6.3 % 04/07/2021 4:57 PM CDT [facility] Estimated Average Glucose 134 mg/dL 04/07/2021 4:57 PM CDT [facility] Comment: HbA1c Interpretation: Treatment target values recommended by ADA and other clinical organizations should be used to evaluate metabolic control in patients. Treatment Target Values: Normal : < 5.7% Pre-diabetes: 5.7-6.4% Diabetes: Equal to or greater than 6.5% Reference: [place] Diabetes Association Standards of Care in Diabetes -2014 In patients 70 years and older consider HbA1c target range of 7.0-7.5% Reference: Diabetes Mellitus in Older People: Position Statement on behalf of the International Association of Gerontology and Geriatrics (IAGG), the Diabetes Working Libertarian for Older People (EDWPOP), and the International Task Force of Experts in Diabetes. Guero Barrera, et al. J [place] Medical Directors Association. 2012 Test results diagnostic of diabetes should be repeated for confirmation. The Sebia Capillary 2 assay for the measurement of HbA1c is a National Glycohemoglobin Standardization Program (NGSP)certified method. 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
--- OUTSIDE RECORDS SUMMARY | 2024-09-21 08:07 | XMS_ITS | Referral Summary ---
Author Organization [facility] Address [address] [facility] [place] [address] Care Team Providers Care Production Engineer Track Name Role Phone Augusto Molina MD Primary Care Provider [phone] uAgusto Molina MD Unavailable [phone] Nadine Goldstein MD Unavailable [phone] Source Comments [facility],non-owned Affiliates and Associated Physician Practices is amultiple site organization consisting of ambulatory clinics and hospital sitesin [place], [place], [place]. This disclosure is being madepursuant to the Care Everywhere program and may not contain all information available regarding this patient. Last updated 18.[facility] Encounters Date Type Department Care Team Description 09/11/2024 Orders Only [facility] - Cardiology [address] [facility], [facility] [address] [place] [address] Ruperto Olmos RN Aortic valve stenosis, etiology of cardiac valve disease unspecified ; PFO (patent foramen ovale) (HCC) from Last 3 Months Allergies Active Allergy Reactions Criticality Noted Date [...] 04/04/2021 04/19/2021 Atrial septal defect 09/10/2017 018 Immunizations Name Administration Dates Next Due [facility] primary monoval ent 12+ yr 0.3mL Purple cap 04/16/2021,08/23/2020,08/02/2020 INFLUENZA VACCINE 04/14/2020, 9,04/17/2018,2016 INFLUENZA VACCINE, HIGH-DOSE , QUADR. (FLUZONE HIGH-DOSE QUADRIVALENT; 65Y+), 0.7 ML (HD-IIV4) 04/24/2018,03/25/2018 PNEUMOCOCCAL PPSV23 07/15/2015 Pneumococcal Pcv13 Conj 07/15/2014 TDAP (7yrs+) 12/17/2019,08/22/2017 iNFLUENZA VACCINE, RECOM-LITTLEJOHN, QUADR. 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 No 04/26/2021 Is person blind or have serious difficulty seein g? No 04/26/2021 Does person have serious dif ficulty walking/climbing stairs? Yes 04/26/2021 Does person have difficulty dressing/bathing? Ye s 04/26/2021 Does person have difficulty doing errands alone? Yes 04/26/2021 Cognitive Status Response Date of Assessm ent Does person have difficulty concentrating/remembering/making decisions? No 04/26/2021 Plan of Treatment Upcoming Encounters Date Type Department Care Team (Late st Contact Info) Description 09/22/2024 10:00 AM CDT Ancillary Procedure [facility] - Echosonography [address] [place] [address] 09/22/2024 11:20 AM CDT Office Visit [facility] - Cardiology [address] [facility], [place] [address] [place] [address] Betsy Capone MD [phone] [place] [address] Medical Devices Implanted Type Area Digital Account Executive Device Identifier Shelf Expiration Date Model / Serial / Lot Occl Sept Cribifrm 18mm Implanted:Qty: 1 on 05/13/2018 by Augusto Estrada MD at [facility] [employer] 12/12/2022 [id number] Procedures Procedure Name Priority Date/Time Associated Diagnosis Comments COMPREHENSIVE METABOLIC PANEL AM Draw 04/15/2021 8:22 AM CDT HEMOGLOBIN A1C Routine 04/07/2021 11:21 AM CDT from Last 3 Months or Most Recently Relevant to Health Maintenance Results * (ABNORMAL) COMPREHENSIVE METABOLIC PANEL (04/15/2021 8:22 AM CDT) BUN 13 7 - 26 mg/dL 04/15/2021 9:49 AM [facility] Creatinine 0.81 0.71 - 1.16 mg/dL 04/15/2021 9:49 AM [facility] Sodium 140 136 - 145 mmol/L 04/15/2021 9:49 AM [facility] Potassium 3.9 3.5 - 4.5 mmol/L 04/15/2021 9:49 AM [facility] Chloride 108(H) 98 - 107 mmol/L 04/15/2021 9:49 AM [facility] CO2 25 22 - 29 mmol/L 04/15/2021 9:49 AM [facility] Glucose 94 70 - 115 mg/dL 04/15/2021 9:49 AM [facility] Calcium 8.8 8.4 - 10.2 mg/dL 04/15/2021 9:49 AM [facility] Protein Total 6.0 6.0 - 8.3 g/dL 04/15/2021 9:49 AM [facility] Albumin 2.1(L) 3.4 - 5.0 g/dL 04/15/2021 9:49 AM [facility] Bilirubin Total 0.4 0.2 - 1.2 mg/dL 04/15/2021 9:49 AM [facility] Alkaline Phosphatase 202(H) 40 - 150 U/L 04/15/2021 9:49 AM [facility] ALT 41 5 - 55 U/L 04/15/2021 9:49 AM [facility] AST 35(H) 5 - 34 U/L 04/15/2021 9:49 AM [facility] Anion Gap 11 8 - 18 04/15/2021 9:49 AM [facility] BUN/Creatinine Ratio 16 7 - 23 04/15/2021 9:49 AM [facility] Osmolality Calculated 290 270 - 300 mOsm/kg 04/15/2021 9:49 AM [facility] Albumin/Globulin Ratio 0.5(L) 1.1 - 2.3 04/15/2021 9:49 AM [facility] eGFR by CKD-EPI 84(L) >=90 mL/min/1.7 3 m2 04/15/2021 9:49 AM [facility] Blood BLOOD SPECIMEN / Unknown Lab Venipuncture / Unknown 04/15/2021 8:22 AM CDT 04/15/2021 9:25 AM T Laina Sanchez PA-C LAB - CHEMISTRY LYUDMILA ZAMAN [facility] Organization Address City/State/[facility] Co de Phone Number [facility] [address] [place] [address], [facility] [phone] * HEMOGLOBIN A1C (04/07/2021 11:21 AM CD) Hemoglobin A1c 6.3 4.4 - 6.3 % 04/07/2021 4:57 PM [facility] Estimated Average Glucose 134 mg/dL 04/07/2021 4:57 PM [facility] Comment: HbA1c Interpretation: Treatment target values recommended by ADA and other clinical organizations should be used to evaluate metabolic control in patients. Treatment Target Values: Normal : < 5.7% Pre-diabetes: 5.7-6.4% Diabetes: Equal to or greater than 6.5% Reference: [place] Diabetes Association Standards of Care in Diabetes -2014 In patients 70 years and older consider HbA1c target range of 7.0-7.5% Reference: Diabetes Mellitus in Older People: Position Statement on behalf of the International Association of Gerontology and Geriatrics (IAGG), the Diabetes Working Alliance Party for Older People (EDWPOP), and the International Task Force of Experts in Diabetes. Guero Barrera, et al. J [place] Medical Directors Association. 2012 Test results diagnostic of diabetes should be repeated for confirmation. The Sebia Capillary 2 assay for the measurement of HbA1c is a National Glycohemoglobin Standardization Program (NGSP)certified method. 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 Adv Directive/Living Will/POA 05/13/2018 * Full Code (Latest Code Status on File) Date Activated Date Inactivated Comments 04/04/2021 10:46 AM 04/17/2021 7:07 PM * Full Code Date Activated Date Inactivated Comments 05/13/2018 6:20 PM 05/14/2018 12:29 PM Care Teams Production Engineer Track Relationship Specialty Start Date End Date Augusto Molina MD [address] [place] [phone] PCP - General Family Medicine 04/03/21 Augusto Molina MD [address] [place] [phone] 04/03/21 Nadine Goldstein MD [address] [place] [phone] Neurologist Neurology 11/24/17
--- OUTSIDE RECORDS SUMMARY | 2024-09-21 08:08 | XMS_ITS | Referral Summary ---
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,Rash High 01/27/2018 Medications metFORMIN (GLUMETZA) 500 mg 24 hr tablet Take 500 mg by mouth daily with breakfast Active lisinopriL (PRINIVIL,ZESTR IL) 5 mg tablet Take 5 mg by mouth daily Active calcium carbonate-vitam in D3 600 mg (1,500 mg)-800 unit tablet,chewable Take by mouth Active atorvastatin (LIPITOR) 40 mg tablet Take 40 mg by mouth daily Active multivitamin capsule Take by mouth 1 Active vitamin E (AQUASOL E) 400 unit capsule Take 400 Units by mouth Active aspirin 81 mg enteric coated tablet Take 81 mg by mouth daily Active glucosamine-cho ndroit-vit C-Mn capsule Take by mouth Active gabapentin (NEURONTIN) 300 mg capsuleIndicati ons:Neuropathic Pain Take 1 capsule (300 mg total) by mouth 3 (three) times a day 270 capsule 3 2 Active amoxicillin (AMOXIL) 500 mg tablet/capsule 1 Active aspirin 325 mg tablet Take 325 mg by mouth daily Active ascorbic acid (ascorbic acid) 500 mg tablet,chewable Acti ve chromium 200 mcg tablet 200 mcg Active hlqtc-6-nnf-epa -dpa-fish oil 1,050-1,200 mg capsule 1 capsule Active ginseng 250 mg capsule Take by mouth Active lecithin 1,200 mg capsule Take by mouth Activ e Active Problems Problem Noted Date Diagnosed Date History of urinary retention 08/29/2020 Assessment & Plan (08/29/2020 10:25 AM MEDICAL ADVISOR): -Finish tamsulosin and then stop this medication. -Pt instructed to call if he has reoccurring symptoms of retention or other concerns. -F/U prn Spinal epidural abscess 06/21/2020 Assessment & Plan (08/16/2020 3:26 PM MEDICAL ADVISOR): Summary: 80 y.o. male w/PMH of HTN, [...] to follow with Ortho spine RTC PRN Assessment & Plan (07/12/2020 5:18 PM MEDICAL ADVISOR): Summary: 80 y.o. 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 Current antibiotic regimen is: Ceftriaxone 2g IV q24h (6-8 weeks) Start date: 06/21/2020 Completed 3 weeks of therapy Adverse effects from antibiotics: none PLAN - Continue current treatment regimen until 08/01/2020--tentative stop - While on IV antimicrobials we'll continue to monitor CBC, CMP. - Continue to follow with Ortho spine RTC on 08/01/2020 (in person). Assessment & Plan (06/27/2020 12:58 PM MEDICAL ADVISOR): 80 y.o. male w/PMH of T2D, L1-4 cervical spinal stenosis; now admitted for T12- L2 epidural abscess s/p I&D. - baseline CrCl 57 ml/min, CRP 448, ESR 43, wbc 22.7, plt 445. - COVID test negative. - BCX (06/21) NGTD. - MRI spine (06/21): T12-L2/L3 R-dorsolateral epidural abscess causing severe spinal canal stenosis + L4-L5 OM/diskitis, b/l psoas abscesses (L>>R) & R-iliac bone OM - s/p epidural abscess I&D, T12 & L1 R-hemilaminectomy on 06/21. --> purulent drainage was expressed. - OR cx (06/21) are + Gemella morbillorium - Psoas abscesses to small to attempt drain per IR. Pt narrowed to ctx 06/24/2020 upon cx result. Pt states he had dental work done about 6 months ago and it was just routine cleaning. Panorex this admission negative He had a screening colonoscopy in 2018, diverticulosis. We advised he should have a repeat colonoscopy as an OP to look for the source of the gemella. States he had a PFO repaired with amplatzer device at [facility] he thinks about 3 years ago. TTE done, negative for any vegetations. Recommendations: - continue ceftriaxone 2g IV q 24 hours. Plan for 6-8 weeks. No HW placed, so no need for LTOS. -The pt should have a repeat colonoscopy as an outpatient to look for the source of his Gemella spine infection. - ID will formally sign off but continue to follow the pt peripherally while in house. - Please call with any questions , concerns, changes in the patients' cultures or clinical status. - See the most recent ID plan of care note for detailed recommendations. Please contact the ID B&J Team PA at [phone] (desk) or [phone] (pager) M-F, 7-3; or the Attending at [phone] with any questions or concerns. After hours, the ID fellow control integration engineer can be reached at [phone]. Hypertension 06/21/2020 Hyperlipidemia 06/21/2020 Type 2 diabetes mellitus 06/21/2020 Cryptogenic stroke 06/21/2020 Immunizations Immunization Administration Dates Next Due Influenza, Quadrivalent, Rec ombinant, Egg Free, Preservative Free, Intramuscular 05/01/2019,05/01/2019 Influenza, Trivalent, High D ose, Split, Preservative Free, Intramuscular 04/24/2018,03/25/2018 Influenza, Unspecified 04/14/2020,2019,04/14/2019,04/24,04/17/2018,03/25/2018,04/05/2017 Pfizer SARS-CoV-2 Monovalent Vaccination (12+ Yrs) PURPLE 08/23/2020,08/02/2020 Pneumococcal Conjugate PCV 13 07/15/2014 Pneumococcal Polysaccharide PPV23 07/15/2015 Tdap 12/17/2019,12/17/2019,08/22/2017 Social History Tobacco Use Types Packs/Day Years Used Date Smoking Tobacco: Former Cigarettes Q uit: 1992 Smokeless Tobacco: Former Quit: 1962 Comments:quit 1992, smoked 1 -2 packs for approx. 30 years Alcohol Use Standard Drinks/Week Comments Yes 2 (1 standard drink = 0.6 oz pur e alcohol) Sex and Gender Information Value Date Recorded Sex Assigned at Not on file Legal Sex Male 7:31 PM MEDICAL ADVISOR Gender Identity Not on file Sexual Orientation Not on file Last Filed Vital Signs Vital Sign Reading Time Taken Comments Blood Pressure 160/75 08/16/2020 2:54 PM MEDICAL ADVISOR Pulse 91 08/16/2020 2:54 PM MEDICAL ADVISOR Temperature 36.6 C (97.8 F) 08/16/2020 2:54 PM MEDICAL ADVISOR Respiratory Rate 16 07/28/2020 9:52 AM MEDICAL ADVISOR Oxygen Saturation 97% 07/28/2020 9:52 AM MEDICAL ADVISOR Inhaled Oxygen Concentration - - Weight 79.4 kg (175 lb) 07/26/2021 9:19 AM MEDICAL ADVISOR Height 167.6 cm (5' 6 ) 07/26/2021 9:19 AM MEDICAL ADVISOR Body Mass Index 28.25 07/26/2021 9:19 AM MEDICAL ADVISOR Plan of Treatment Not on file Medical Devices Implanted Type Area Dog Food Dough Mixer Device Identifier Shelf Expiration Date Model / Serial / Lot Amplatz Cribiform Occluder N/A: Heart [employer] Knee Replacement Right: Knee Procedures Procedure Name Priority Date/Time Associated Diagnosis Comments EGFR Routine Gen Lab 05/02/2021 5:57 AM CDT LIPID PANEL Routine 06/22/2020 11:50 PM MEDICAL ADVISOR HEMOGLOBIN A1C Routine 06/21/2020 2:33 AM MEDICAL ADVISOR from Last 3 Months or Most Recently Relevant to Health Maintenance Results * (ABNORMAL) eGFR (05/02/2021 5:57 AM CDT) eGFR 86(L) 90 - 130 mL/min/1.7 3 m2 [facility] Comment: Interpretive Data Reference Interval Normal >/= 90 mL/min/1.73m2 Mildly decreased* 60 - 89 mL/min/1.73m2 Mildly to moderately decreased 45 - 59 mL/min/1.73m2 Moderately to severely decreased 30 - 44 mL/min/1.73m2 Severely decreased 15 - 29 mL/min/1.73m2 Kidney Failure < 15 mL/min/1.73m2 *Relative to young adult level Estimated glomerular filtration rate is determined by the CKD-EPI equation recommended by the National Kidney Foundation (KDIGO 2012 Clinical Practice Guideline for the Evaluation and Management of Chronic Kidney Disease. Kidney Intnl Suppl Jul 2012;3:1). The CKD-EPI equation should not be used for patients with unstable renal function and has not been validated in children and those over 70. Current interpretive data was last reviewed 2020 Blood 05/02/2021 5:57 AM CDT 05/02/2021 7:00 AM CDT us Dilip Galvan MD LAB BLOOD ORDERABLES Final Re sult [facility] Department [place] [address] * (ABNORMAL) Lipid panel (06/22/2020 11:50 PM MEDICAL ADVISOR) Cholesterol 56 30 - 199 mg/dL [facility] Comment: Interpretive Data Ages < or = 19 years Acceptable: <170 mg/dL Borderline high: 170-199 mg/dL High: >or= 200 mg/dL Ages > or = 20 years Desirable: <200 mg/dL Borderline high: 200-239 mg/dL High: >or= 240 mg/dL Literature References: 1. Expert Panel on Integrated Guidelines for Cardiovascular Health and Risk Reduction in Children and Adolescents. Pediatrics 2011;128:S213 2. NCEP Expert Panel. Circulation 2004;110:227 Current Interpretive Data was last revised on 2018. Triglycerides 85 <=149 mg/dL [facility] Comment: Interpretive Data Ages < or = 9 years Acceptable: <75 mg/dL Borderline high: 75-99 mg/dL High: >or= 100 mg/dL Ages 10 to 20 years Acceptable: <90 mg/dL Borderline high: 90-129 mg/dL High: >or= 130 mg/dL Ages > or = 20 years Desirable: <150 mg/dL Borderline high: 150-199 mg/dL High: 200-499 mg/dL Very high: >or= 499 mg/dL Literature References: 1. Expert Panel on Integrated Guidelines for Cardiovascular Health and Risk Reduction in Children and Adolescents. Pediatrics 2011;128:S213 2. NCEP Expert Panel. Circulation 2004;110:227 Current Interpretive Data was last revised on 2018. HDL 21(L) >=40 mg/dL [facility] Comment: Interpretive Data Ages < or = 19 years Acceptable: >45 mg/dL Borderline low: 40-45 mg/dL Low: <40 mg/dL Ages > or = 20 years Desirable: >or= 60 mg/dL Low: <40 mg/dL Literature References: 1. Expert Panel on Integrated Guidelines for Cardiovascular Health and Risk Reduction in Children and Adolescents. Pediatrics 2011;128:S213 2. NCEP Expert Panel. Circulation 2004;110:227 Current Interpretive Data was last revised on 2018. LDL, calculated 18 <=129 mg/dL [facility] Comment: Interpretive Data Ages < or = 19 years Acceptable: <110 mg/dL Borderline high: 110-129 mg/dL High: >or= 130 mg/dL Ages > or = 20 years Optimal: <100 mg/dL Near optimal: 100-129 mg/dL Borderline high: 130-159 mg/dL High: >160 mg/dL Literature References: 1. Expert Panel on Integrated Guidelines for Cardiovascular Health and Risk Reduction in Children and Adolescents. Pediatrics 2011;128:S213 2. NCEP Expert Panel. Circulation 2004;110:227 Current Interpretive Data was last revised on 2018. Non-HDL Cholesterol 35 mg/dL [facility] Comment: Interpretive Data Ages < or = 19 years Acceptable: <120 mg/dL Borderline high: 120-144 mg/dL High: >145 mg/dL Ages > or = 20 years When triglycerides are >200 mg/dL, Non-HDL cholesterol is a secondary target of therapy with treatment goals that are 30 mg/dL greater than the LDL cholesterol target. Literature References: 1. Expert Panel on Integrated Guidelines for Cardiovascular Health and Risk Reduction in Children and Adolescents. Pediatrics 2011;128:S213 2. NCEP Expert Panel. Circulation 2004;110:227 Current Interpretive Data was last revised on 2018. Chol/HDL ratio 3 [facility] Blood specimen (specimen) 06/22/2020 11:50 PM MEDICAL ADVISOR 06/23/2020 12:14 AM MEDICAL ADVISOR us Gutierrez Fan MD LAB BLOOD ORDERABLES Final Res ult [facility] Department [place] [address] * (ABNORMAL) Hemoglobin A1c (06/21/2020 2:33 AM MEDICAL ADVISOR) Hgb A1C 5.9(H) 4.0 - 5.6 % [facility] Estimated Average Glucose 123 mg/dL [facility] Comment: The ADA recommends reporting an estimated Average Glucose (eAG) with all Hemoglobin A1c results using the equation derived from a study of 507 normal and diabetic adults. Minority populations were underrepresented and children were not included. (Diabetes Care 31:7641-7936, 2008). The eAG is not equivalent to a fasting glucose. Blood specimen (specimen) 06/21/2020 2:33 AM MEDICAL ADVISOR 06/21/2020 2:56 AM MEDICAL ADVISOR us Augusto Huff MD LAB BLOOD ORDERABLES Fi nal Result [facility] Department [place] [address] from Last 3 Months or Most Recently Relevant to Health Maintenance Insurance MEDICARE [employer] MEDICARE [facility] [address] [place] [address] FOR LIFE MEDICARE [facility] [facility] Advance Directives For more information, please contact: [phone] * Full Code (Latest Code Status on File) Date Activated Date Inactivated Comments 06/21/2020 3:47 PM 06/28/2020 9:51 PM Care Teams Yarding Engineer Relationship Specialty Start Date End Date Augusto Molina MD PCP - General Family Medicine 07/12/20
--- OUTSIDE RECORDS SUMMARY | 2024-09-21 08:08 | XMS_ITS | Encounter Summary ---
Author Name [facility] Organization [facility] Address [address] [place] [address] Care Team Providers Care Tobacco Stemmer Machine Name Role Phone ANGELA ARREDONDO Primary Care [...] PART A Apr 14, 2005 PART A [id number] [phone] Ti SKY PATIENT MEDICARE (WNR) MEDICARE (M) PART B Apr 14, 2005 PART B [id number] Ti SKY PATIENT Selected Encounter This section includes the information on record at [place] for the Encounter. Date/Time Encounter Type Encounter Description Reason Provider Source Feb 25, 2024 03:00 PM OFFICE O/P EST LOW 20 MIN OPTOMETRY ICD-10-CM H40.013 Open angle with borderline findings, low risk, bilateral BENY VARELA IHE Encounter Template Text not used by [facility] Assessments - Encounter Diagnoses This section includes the primary and secondary diagnoses documented for the Encounter. Date/Time Primary/Secondary Diagnosis Diagnosis Name Provider Source Feb 25, 2024 03:37 PM PRIMARY Open angle with borderline findings, low risk, bilateral KIRSTIN SUTHERLAND [facility] Feb 25, 2024 03:37 PM SECONDARY Age-related nuclear cataract, bilateral KIRSTIN SUTHERLAND [facility] Feb 25, 2024 03:37 PM SECONDARY Other retinoschisis and retinal cysts, left [facility] Plan of Treatment: Future Appointments (+ 6 months) and Future Tests (+/- 45 days) The Plan of Treatment section includes future care activities for the patient from all [place] treatmentfacilities. This section includes future appointments and future orders which are active, pending or scheduled. Future Appointments This section includes appointments that were scheduled to occur 6 months from the date of the Encounter, up to a maximum of 20 appointments. The data comes from all [place] treatment facilities. Appointment Date/Time Appointment Type Appointme nt Facility Name Mar 26, 2024 11:30 AM AMBULATORY - SURGERY . [facility] Aug 24, 2024 02:00 PM AMBULATORY - SURGERY [facility] Encounter Notes: All associated encounter notes This section contains the clinical notes associated to the Encounter. Date/Time Encounter Note(s) Provider Source Feb 25, 2024 03:15 PM OPTOMETRY CONSULT: LOCAL TITLE: OPTOMETRY CONSULT [facility] STANDARD TITLE: OPTOMETRY CONSULT DATE OF NOTE: FEB 25, 2024@15:15 ENTRY DATE: FEB 25, 2024@15:15:05 AUTHOR: BENY VARELA COSIGNER: URGENCY: STATUS: COMPLETED VISUAL FIELD Report HVF 24-2 Report CLINICAL HISTORY: Glaucoma Suspect, OU OD: Reliability low Fixation losses 10/11, 3% FP, 0% FN Description of the VF: enlarged blindspot no glaucomatous defects OS: Reliability low Fixation losses 4/11, 12% FP, 9% FN Description of the VF: two nasal edge points superior nasal paracentral defect Assessment: OD: low reliability, no glaucomatous defects OS: low reliability, two nasal edge points, paracentral defects worse sup-shelia /es/ BENY VARELA O.D. Staff Physician, Optometry Signed: 02/25/2024 15:23 BENY VARELA [facility] Feb 25, 2024 03:14 PM OPTOMETRY CONSULT: LOCAL TITLE: OPTOMETRY CONSULT ST STANDARD TITLE: OPTOMETRY CONSULT DATE OF NOTE: FEB 25, 2024@15:14 ENTRY DATE: FEB 25, 2024@15:14:32 AUTHOR: BENY VARELA EXP COSIGNER: URGENCY: STATUS: COMPLETED PLEASE SEE [facility] FOR FUNDUS PHOTOS /munira/ BENY VARELA O.D. Staff Physician, Optometry Signed: 02/25/2024 15:14 BENY VARELA [facility] Feb 25, 2024 08:04 AM OPTOMETRY NOTE: LOCAL TITLE: OPTOMETRY NOTE STANDARD TITLE: OPTOMETRY NOTE DATE OF NOTE: FEB 25, 2024@08:04 ENTRY DATE: FEB 25, 2024@08:04:05 AUTHOR: BENY VARELA EXP COSIGNER: URGENCY: STATUS: COMPLETED Last seen: 09/03/2023 CC: 1. Physician directed follow up for glaucoma suspect here for HVF and IOP check and fundus photos no current treatment 2. Vision is stable since last visit Ocular meds: none Ocular ROS: (-) eye injuries (-) eye surgeries, injections or laser treatments Type 2 DM w/o h/o ocular manifestations OU (last DFE 09/2022) Glaucoma Suspect OU Retinoschisis OS Cataracts OU H/o CVA, no neurological defects on HVF Family OcHX: (-) blindness (-) glaucoma (-) AMD (-) RD Cardiovascular ROS: no change from problem & medication lists CPRS Problem list, medications and allergies reviewed: CPRS Serology for Diabetes GLUCOSE 90 mg/dL 08/06/2022 08:29 HGA1C 5.9 % 08/06/2022 08:29 Cardiovascular BP: 131/70 (09/13/2023 14:39) Pulse: 65 (09/13/2023 13:56) Neuro: Orientation: Normal Psych: Mood/Affect: Normal Depression/suicide ideation: NO VISUAL ACUITY With correction Distance Visual Acuity OD: 20/20-1 OS: 20/20-1 Pupils PERRL OU (-)APD Confrontation: FTFC OU Extra-Ocular Muscles Full OU Externals/adnexa: Unremarkable OU Refraction 24 OD: +4.00-3.74x387 20/25+2 OS: +3.25-1.84h326 20/20 Add: +2.50 SLIT LAMP EXAMINATION Lids/Lashes/Lacrimal No blepharitis OU Conjunctiva/Sclera White/quiet OU Cornea/Tear Film Clear OU Ant Chamber Deep and quiet OU Iris Normal, (-)NVI OU Lens 2+ NS cataract OU Intraocular Pressures (Goldmann) 1 gtt fluress OD: OS: Time: Meds: 10/01/2018 16 16 1:15PM none 04/01/2018 15 16 9:30AM none 04/23/2019 14 13 1:40PM none 04/20/20 14 14 1:53PM none 10/18/20 14 16 1407pm none, primary special educator 09/18/21 13 14 328 none, primary special educator 09/13/2022 14 13 1408 none 03/12/23 13 14 1427 none 09/03/23 16 14 1518 none, primary special educator 02/25/2024 14 13 1514 none, primary special educator GONIOSCOPY 03/12/23 OD: open to CB 360, slight convex approach, no AR/PAS/NVA OS: open to CB 360, slight convex approach, no AR/PAS/NVA RETINAL EVALUATION undilated views w/ 90D, last DFE Optic Nerve OD 0.65/0.70v CDR Flat, pink, distinct (-)NVD, tilted, thinner sup OS 0.65/0.65 CDR Flat, pink, distinct (-)NVD, tilted Vessels: 2/3 OU Posterior Pole: OD: (-)hemes (-)CWS (-)NVE OS: (-)hemes (-)CWS (-)NVE; (+) small area of RPE dropout along S/T arcades Macula: OD: Flat, intact (-)CSME OS: Flat, intact (-)CSME HVF 02/25/2024 OD: Reliability low Fixation losses 04/24, 3% FP, 0% FN Description of the VF: enlarged blindspot no glaucomatous defects OS: Reliability low Fixation losses 10/23, 12% FP, 9% FN Description of the VF: two nasal edge points superior nasal paracentral defect Kirstin Sutherland, Optometry Medical Claims Representative participated in the care of this under my supervision. I personally examined the patient and provided the following assessment and plan: Assessment/Plan 02/25/2024 1. Glaucoma Suspect OU vs. megalopapillae/physiologic al cupping c tilted ONH OU - CDR appears stable however inferior rim appears thin OD - IOP untreated - thin CCT 463/482 - gonio 02/2023 wide open despite patient being moderate hyperope - OCT RNFL/GCC 09/03/23 OD: avg 86, thinning at 12 o'clock (63 um vs 118 um at last scan) OS: avg 80, stable temporal thinness *shelia/sup shelia GCC thinnning OD, diffude thinning OS - HVF 24-2 today (02/25/2024) OD: low reliability, no glaucomatous defects OS: low reliability, two nasal edge points, paracentral defects worse sup-shelia - Edu pt on all findings, defer treatment, IOP adequate at this time. - RTC 6 months DFE/OCT RNFL/IOP check; sooner prn 2. Hx of T2DM without ocular manifestations OU (Assessed to extent today) - Last A1c 5.9% - No DME on last DFE - Advised patient to keep HgA1c below 7% to reduce the risk of vision loss associated with diabetes. - RTC 6 months DFE/OCT Macula, sooner prn 3. Hx of Retinoschisis OS (Assessed to extent today) - Pt asymptomatic - Appears stable - fundus photos obtained today - Reviewed signs and symptoms of RD and instructed patient to RTC STAT if experiencing any. - Monitor with yearly DFE 4. Cataracts OU (Assessed to extent today) - not visually significant - Defer c/e until BVA is 20/40 or worse and signs/sx indicate 5. Refractive Error with Presbyopia OU - BCVA 20/20-1 OD; OS - Continue with [facility] gls Ed. pt on all findings and given the opportunity to have questions answered RTC 6 months DFE/OCT/IOP check, sooner prn /es/ BENY VARELA O.D. Staff Physician, Optometry Signed: 02/26/2024 08:36 BENY VARELA [facility]
--- OUTSIDE RECORDS SUMMARY | 2024-09-21 08:08 | XMS_ITS | Encounter Summary ---
Author Organization [facility] Health Address [address] [place] [address] Care Team Providers Care Staff Nuclear Weapons Officer Name Role Phone Augusto Molina MD Primary Care Provider [phone] Augusto Molina MD Unavailable [phone] Nadine Goldstein MD Unavailable [phone] Reason for Visit * Reason Onset Date Comments MEDICATION REFILL 10/11/2022 Encounter Details Date Type Department Care Team (Late st Contact Info) Description 10/11/2022 Refill [facility] [id number] [place] [address] Betsy Capone MD [address] [facility] [address] [place] [address] MEDICATION REFILL Social History Tobacco Use Types Packs/Day Years Used Date Smoking Tobacco: Former Smokeless Tobacco: Never Alcohol Use Standard Drinks/Week Comments Yes 1 [...] person have difficulty concentrating/remembering/making decisions? No 04/26/2021 documented as of this encounter Miscellaneous Notes * Telephone Encounter - Betsy Capone MD - 10/11/2022 2:54 PM CDT This is prescribed by neurology, not me. documented in this encounter Plan of Treatment Upcoming Encounters Date Type Department Care Team (Late st Contact Info) Description 09/22/2024 10:00 AM CDT Ancillary Procedure [facility] - Echosonography [address] [id number] [place] [address] 09/22/2024 11:20 AM CDT Office Visit [facility] - Cardiology [address] [id number] [place] [address] Betsy Capone MD [address] [address] documented as of this encounter Visit Diagnoses Not on filedocumented in this encounter Care Teams Staff Nuclear Weapons Officer Relationship Specialty Start Date End Date Augusto Molina MD [address] [place] [address] [phone] PCP - General Family Medicine 04/03/21 Augusto Molina MD [address] [place] [address] [phone] 04/03/21 Nadine Goldstein MD [address] [place] [phone] Neurologist Neurology 11/24/17 documented as of this encounter
--- OUTSIDE RECORDS SUMMARY | 2024-09-21 08:08 | XMS_ITS ---
Author Name [facility] [place] Organization [facility] [place] [facility] [place] Address [address] [place] [address] Care Team Providers Care Dough Raiser Name Role Phone ANGELA ARREDONDO Primary Care [...] PART A Apr 14, 2005 PART A [id number] [phone] [id number] Ti SKY PATIENT MEDICARE (WNR) MEDICARE (M) PART B Apr 14, 2005 PART B [id number] Ti SKY PATIENT Selected Encounter This section includes the information on record at [place] for the Encounter. Date/Time Encounter Type Encounter Description Reason Provider Source Mar 26, 2024 11:30 AM OFFICE O/P EST LOW 20 MIN PODIATRY ICD-10-CM L60.3 Nail dystrophy SHANNON [facility] Encounter Template Text not used by [place] Assessments - Encounter Diagnoses This section includes the primary and secondary diagnoses documented for the Encounter. Date/Time Primary/Secondary Diagnosis Diagnosis Name Provider Source Mar 28, 2024 12:03 AM PRIMARY Nail dystrophy SHANNON [facility] Mar 28, 2024 12:03 AM SECONDARY Other acquired deformities of unspecified foot [facility]ON [facility] Mar 28, 2024 12:03 AM SECONDARY Type 2 diabetes mellitus with diabetic neuropathy, unsp [facility]ON [facility] Plan of Treatment: Future Appointments (+ 6 months) and Future Tests (+/- 45 days) The Plan of Treatment section includes future care activities for the patient [facility] [place] [facility] This section includes future appointments and future orders which are active, pending or scheduled. Future Appointments This section includes appointments that were scheduled to occur 6 months from the date of the Encounter, up to a maximum of 20 appointments. The data comes from all [place] treatment facilities. Appointment Date/Time Appointment Type Appointme nt Facility Name Aug 24, 2024 02:00 PM AMBULATORY - SURGERY [facility] Sep 14, 2024 11:00 AM AMBULATORY - MEDICINE [facility] Encounter Notes: All associated encounter notes This section contains the clinical notes associated to the Encounter. Date/Time Encounter Note(s) Provider Source Mar 26, 2024 05:31 AM PODIATRY NOTE: LOCAL TITLE: PODIATRY NOTE STANDARD TITLE: PODIATRY NOTE DATE OF NOTE: MAR 26, 2024@05:31 ENTRY DATE: MAR 26, 2024@05:31:41 AUTHOR: SHANNON CH EXP COSIGNER: URGENCY: STATUS: COMPLETED Last clinic visit on October 03, 2023 SUBJECTIVE: This 83 year old noninsulin dependent male patient presents for examination of feet with history of high risk. Pt complains of neuropathy, in particular numbness to the plantar feet, b/l, right > left. The pt is requesting nail palliation. The pt has not seen a foot/ankle specialist for his feet. The pt does not use [place] issued footwear or shoe orthosis. The pt is currently not using orthosis. The pt is not requesting footwear and orthosis this clinic visit. Pt states there last blood sugar was 101 mg/dl. The pt's PCP is following the pt for his diabetes. Pt states numbness sensation to the feet. Pt denies rest pain or claudication. Pt denies any recent injuries to the feet. Pt denies any history of ulceration or slow healing wounds. Pt relates no other foot complaints at this time. SOCIAL HISTORY: The pt retired from the [employer] (O6) Pt denies smoking. Stopped in 1992 per patient. Patient drinks alcohol: denies Patient uses recreational drugs: denies Family history of diabetes: denies PMH: HAZKIMBER DS - Disabilities Eligibility: SERVICE CONNECTED 50% to 100% VERIFIED Total S/C %: 100 2ND DEGREE HUERTAS 0% S/C HEMORRHOIDS 0% S/C DERMATOPHYTOSIS 0% S/C PARALYSIS OF SCIATIC NERVE 20% S/C TINNITUS 10% S/C BRONCHITIS,CHRONIC 0% S/C PARALYSIS OF SCIATIC NERVE 20% S/C DIABETES MELLITUS 20% S/C PARALYSIS OF ALL RADICULAR NERVE GROUPS 30% S/C LOWER LEG CONDITION 0% S/C INTERVERTEBRAL DISC SYNDROME 10% S/C LOSS OF MOTION OF INDEX FINGER 10% S/C KNEE PROSTHESIS 30% S/C PARALYSIS OF SCIATIC NERVE 20% S/C LARYNGITIS,CHRONIC 0% S/C PARALYSIS OF ALL RADICULAR NERVE GROUPS 40% S/C Active Outpatient Medications (including Supplies): Active Non-VA Medications Status 1) Non-VA ASCORBIC ACID 500MG TAB 500MG BY MOUTH ONCE A ACTIVE DAY 2) Non-VA ASPIRIN 81MG EC TAB 81MG BY MOUTH ONCE A DAY ACTIVE 3) Non-VA ATORVASTATIN CALCIUM 80MG TAB 40MG BY MOUTH ACTIVE EVERY EVENING 4) Non-VA GABAPENTIN 300MG CAP 300MG BY MOUTH THREE ACTIVE TIMES A DAY 5) Non-VA GINSENG CAP/TAB 1 CAP/TAB BY MOUTH ACTIVE 6) Non-VA LISINOPRIL 10MG TAB 5MG BY MOUTH ONCE A DAY ACTIVE 7) Non-VA METFORMIN HCL 500MG 24HR SA TAB 500MG BY MOUTH ACTIVE ONCE A DAY 8) Non-VA MULTIVITAMIN CAP/TAB 1 TABLET BY MOUTH ONCE A ACTIVE DAY 9) Non-VA NAPROXEN 250MG TAB 250MG BY MOUTH TWICE DAILY ACTIVE NEEDED 10) Non-VA VITAMIN E (OTC) CAP,ORAL 500MG BY MOUTH ONCE A ACTIVE DAY 66 in [167.6 cm] (09/13/2023 13:56) 200.8 lb [91.08 kg] (09/13/2023 13:56) 1) CVD - Cerebrovascular Disease ([facility] [id number]) 2) Diabetes Mellitus Type 2 ([facility] [id number]) 3) Hyperlipidemia ([facility] [id number]) 4) HTN - Hypertension ([facility] [id number]) 5) Patent foramen ovale 6) Aortic valve stenosis 7) Neuropathy Due to Type 2 Diabetes Mellitus ([facility] [id number]) 8) Calculus of prostate 9) History of repair of inguinal hernia 10) History of repair of umbilical hernia 11) History of tonsillectomy 12) History of arthroplasty of right knee 13) Patent foramen ovale 14) Bilateral carpal tunnel syndrome 15) Diastolic dysfunction 200.8 lb [91.08 kg] (09/13/2023 13:56) 66 in [167.6 cm] (09/13/2023 13:56) Objective: Pt presents ambulating in tennis sneakers every day footwear without assistance and oriented x 3. Last clinic visit on October 03, 2023 with few changes to the following objective findings Vasc: DP pulses are palpable 1/4 b/l. CFT < 4 seconds b/l. PT pulses are non palpable 0/4, b/l. Hair growth is absent on the digits, b/l feet. There is moderate ankle edema present, b/l extremities. Neuro: Protective sensation is normal at all sites tested with [place] Laura 5.07 monofilament to both feet. Negative tinel to the posterior tibial nerve, b/l feet. Derm: neg varicosities dorsum of foot b/l. Pt presents dystrophic nails No evidence of infection, i.e. no erythema, no drainage, no edema, no cellulitis, no odor. Web spaces are clean and dry. There are no open lesions. No evidence of ulcerations or breaks in the skin. No evidence of infection, i.e., no erythema, no drainage, no edema, no cellulitis, no odor. Inflamed keratosis: 0 , right foot; and 0 , left foot. Ortho: 1st MPJ ROM diminished < 30 degrees, b/l. There is no pain or crepitus noted to the joint. Inversion and eversion ROM to the foot is within normal limits without pain or crepitus. Ankle joint ROM is diminished < 3 degrees, b/l. There is no pain with deep massage to anatomical structures to the left foot or the right foot. Manual muscle testing in all biomechanical planes, i.e. supination, pronation, dorsiflexion, plantarflexion, abduction and adduction, are normal, i.e. 5/5, b/l feet. pes cavus b/l feet hallux limitus, b/l feet ankle equinus, b/l feet hammer toes: 2-5, b/l feet Stance/gait: with pronation ASSESSMENT: Noninsulin dependent diabetes mellitus, with neuropathy pes cavus b/l feet hallux limitus, b/l feet ankle equinus, b/l feet hammer toes: 2-5, b/l feet dystrophic nails foot deformities PLAN: Exam debride nails x 10 without incident FOOT RISK SCORE: high foot risk per the A directive 1122 Discussed in detail -- foot hygiene Used foot/ankle models to assist in explanation. The pt agreed with the plan and voiced understanding with the discussion and plan. Pt encouraged to check feet daily. Pt given clinic phone numbers. PROSTHETICS: none this visitg Note: Pt understands that pt can contact the clinic if there are concerns or questions and the pt needs to see Podiatry sooner, through the [facility] proration clerk/office. Pt visits PCP annually. Pt RTC in 6 months Patient instructed to go to [facility], or contact their PCP with new pedal complaints, and if there are concerns or questions. Example includes infection. The pt voiced understanding of infection such as red, hot, swollen and streaking foot that may be accompanied with or without f/c/n/v/d/m/chest pain/sob/leg pain. /munira/ SHANNON CH D.P.M. Staff Physician - Podiatry Signed: 03/31/2024 22:16 SHANNON CH [facility]
--- OUTSIDE RECORDS SUMMARY | 2024-09-21 08:08 | XMS_ITS | Clinical Summary ---
Author Organization [place] [id number] [facility] Address [address] [place] [address] Care Team Providers Care Motion Picture Set Up Worker Name Role Phone Augusto Molina MD Primary Care Provider [phone] Allergies Active Allergy Reactions Criticality Noted Date [...] chromium 200 mcg tablet 200 mcg Active gyrhh-3-bfu-epa -dpa-fish oil 1,050-1,200 mg capsule 1 capsule Active ginseng 250 mg capsule Take by mouth Active lecithin 1,200 mg capsule Take by mouth Activ e Active Problems Problem Noted Date Diagnosed Date History of urinary retention 08/29/2020 Assessment & Plan (08/29/2020 10:25 AM MEDICAL CSR): -Finish tamsulosin and then stop this medication. -Pt instructed to call if he has reoccurring symptoms of retention or other concerns. -F/U prn Spinal epidural abscess 06/21/2020 Assessment & Plan (08/16/2020 3:26 PM MEDICAL CSR): Summary: 80 y.o. male w/PMH of HTN, [...] Assessment & Plan (07/12/2020 5:18 PM MEDICAL CSR): Summary: 80 y.o. male w/PMH of HTN, [...] Assessment & Plan (06/27/2020 12:58 PM MEDICAL CSR): 80 y.o. male w/PMH of T2D, L1-4 [...] contact the ID [employer] Team PA at [phone] (desk) or [phone] (pager) M-F, 7-3; or the Attending at [phone] with any questions or concerns. After hours, the ID fellow americanization teacher can be reached at [phone]. Hypertension 06/21/2020 Hyperlipidemia 06/21/2020 Type 2 diabetes mellitus 06/21/2020 Cryptogenic stroke 06/21/2020 Immunizations Immunization Administration Dates Next Due Influenza, Quadrivalent, Rec ombinant, Egg Free, Preservative Free, Intramuscular 05/01/2019,05/01/2019 Influenza, Trivalent, High D ose, Split, Preservative Free, Intramuscular 04/24/2018,03/25/2018 Influenza, Unspecified 04/14/2020,2019,04/14/2019,04/24,04/17/2018,03/25/2018,04/05/2017 Pfizer SARS-CoV-2 Monovalent Vaccination (12+ Yrs) PURPLE 08/23/2020,08/02/2020 Pneumococcal Conjugate PCV 13 07/15/2014 Pneumococcal Polysaccharide PPV23 07/15/2015 Tdap 12/17/2019,12/17/2019,08/22/2017 Surgical History Surgery Date Site/Laterality Comments PATENT FORAMEN OVALE CLOSURE 07/15/2016 - 07/14/2017 REPLACEMENT TOTAL KNEE 07/15/2016 - 07/14/2017 Right HERNIA REPAIR 07/15/1999 - 07/14/2000 umbilical COLONOSCOPY TONSILLECTOMY 07/15/1973 - 07/14/1974 BACK SURGERY PORT PLACEMENT CHEST >5 YEARS 04/14/2021 N/A Medical History Medical History Date Comments Hypertension Hyperlipemia Diabetes mellitus (HCC) Stroke (HCC) Atrial septal defect DM (diabetes mellitus) type II, controlled, with peripheral vascular disorder (HCC) Enlarged prostate Elevated PSA Normal pressure glaucoma Carcinoma of skin Arthritis Family History Medical History Relation Name Comments Gout Father Balbir Pires Heart disease Father Balbir Pires Diabetes Mother Vickie Pires Heart disease Mother Vickie Pires Heart failure Mother Vickie Pires Anesthesia problems Neg Hx Relation Name Status Comments Father Balbir Pires Mother Vickie Pires Social History Tobacco Use Types Packs/Day Years [...] file Legal Sex Male 7:31 PM MEDICAL CSR Gender Identity Not on file Sexual Orientation Not on file Obstetrics History Last Filed Vital Signs Vital Sign Reading Time Taken Comments Blood Pressure 160/75 08/16/2020 2:54 PM MEDICAL CSR Pulse 91 08/16/2020 2:54 PM MEDICAL CSR Temperature 36.6 C (97.8 F) 08/16/2020 2:54 PM MEDICAL CSR Respiratory Rate 16 07/28/2020 9:52 AM MEDICAL CSR Oxygen Saturation 97% 07/28/2020 9:52 AM MEDICAL CSR Inhaled Oxygen Concentration - - Weight 79.4 kg (175 lb) 07/26/2021 9:19 AM MEDICAL CSR Height 167.6 cm (5' 6 ) 07/26/2021 9:19 AM MEDICAL CSR Body Mass Index 28.25 07/26/2021 9:19 AM MEDICAL CSR Plan of Treatment Health Maintenance Due Date Last Done Comments Albumin Creatinine Ratio, Urine 1940 Depression Screening 1940 Dilated Eye Exam 1940 Foot Exam 1940 Hepatitis B Screening 1958 Zoster Vaccine (2 of 3) 06/23/2002 04/28/2002 Well Visit 65+ 2005 Hemoglobin A1C 12/20/2020 04/07/2021, 06/21/2020 Fall Risk Assessment 06/28/2021 06/28/2020 Lipid Panel 04/07/2022 04/07/2021, 06/22/2020 eGFR 05/02/2022 05/02/2021, 04/14, 04/25/2021, Additional history exists Covid-19 Vaccine ( - 2023-2 5 season) 2024 04/16/2021, 08/23/2020, 08/02/2020 Influenza Vaccine (#1) 2024 3, 05/08/2021, 04/14/2020, Additional history exists DTaP/Tdap/Td Vaccine (4 - Td or Tdap) 12/16/2029 12/17/2019, 12/17/2019, 08/22/2017 Pneumococcal vaccine 65+ Completed 07/15/2015, 07/2014 Medical Devices Implanted Type Area Buckle Gluer Device Identifier Shelf Expiration Date Model / Serial / Lot Amplatz Cribiform Occluder N/A: [employer] Knee Replacement Right: Knee Procedures Procedure Name Priority Date/Time Associated Diagnosis Comments EGFR Routine Gen Lab 05/02/2021 5:57 AM CDT LIPID PANEL Routine 06/22/2020 11:50 PM MEDICAL CSR HEMOGLOBIN A1C Routine 06/21/2020 2:33 AM MEDICAL CSR from Last 3 Months or Most Recently Relevant to Health Maintenance Results * (ABNORMAL) eGFR (05/02/2021 5:57 AM CDT) eGFR 86(L) 90 - 130 mL/min/1.7 3 m2 [facility] Comment: Interpretive Data Reference Interval Normal >/= [...] MD LAB BLOOD ORDERABLES Final Re sult JASPREET DEMPSEY [facility] Department [place] [address] * (ABNORMAL) Lipid panel (06/22/2020 11:50 PM MEDICAL CSR) Cholesterol 56 30 - 199 mg/dL [facility] Comment: Interpretive Data Ages < or = [...] revised on 2018. Triglycerides 85 <=149 mg/dL [facility] Comment: Interpretive Data Ages < or = [...] revised on 2018. HDL 21(L) >=40 mg/dL [facility] Comment: Interpretive Data Ages < or = [...] on 2018. LDL, calculated 18 <=129 mg/dL [facility] Comment: Interpretive Data Ages < or = [...] revised on 2018. Non-HDL Cholesterol 35 mg/dL [facility] Comment: Interpretive Data Ages < or = [...] last revised on 2018. Chol/HDL ratio 3 [facility] Blood specimen (specimen) 06/22/2020 11:50 PM MEDICAL CSR 06/23/2020 12:14 AM MEDICAL CSR Gutierrez Fan MD LAB BLOOD ORDERABLES Final Res ult [facility] Department [place] [address] * (ABNORMAL) Hemoglobin A1c (06/21/2020 2:33 AM MEDICAL CSR) Hgb A1C 5.9(H) 4.0 - 5.6 % [facility] Estimated Average Glucose 123 mg/dL [facility] Comment: The ADA recommends reporting an estimated Average Glucose (eAG) with all Hemoglobin A1c results using the equation derived from a study of 507 normal and diabetic adults. Minority populations were underrepresented and children were not included. (Diabetes Care 31:8932-1746, 2008). The eAG is not equivalent to a fasting glucose. Blood specimen (specimen) 06/21/2020 2:33 AM MEDICAL CSR 06/21/2020 2:56 AM MEDICAL CSR us Augusto Huff MD LAB BLOOD ORDERABLES Fi nal Result [facility]ASPREET BJ [facility] Department [place] [address] from Last 3 Months or Most Recently Relevant to Health Maintenance Insurance MEDICARE [place] MEDICARE [place] [id number] [facility] [place] [address] [place] [address] FOR LIFE MEDICARE [place] [facility] Advance Directives For more information, please contact: [phone] * Full Code (Latest Code Status on File) Date Activated Date Inactivated Comments 06/21/2020 3:47 PM 06/28/2020 9:51 PM Care Teams Motion Picture Set Up Worker Relationship Specialty Start Date End Date Augusto Molina MD PCP - General Family Medicine 07/12/20
--- OUTSIDE RECORDS SUMMARY | 2024-09-21 08:08 | XMS_ITS | Continuity of Care Document ---
Author Name [facility] Organization [facility] Care Team Providers Care Assembler Piano Name Role Phone [facility] Unavailable Unavailable Problems Combined list of problems from Department of Defense and Veterans Affairs facilities. It does not include entries that were removed or entered in error. Problem Status Onset Date Problem Type Date of Resolution Comments Source Aortic valve stenosis Active Condition Oct 11, 2022 Entered By: JEN ARREDONDO OR Ti Comment: moderate, per ECHO completed on 09/25/22, See [facility] Bilateral carpal tunnel syndrome Active Condition [facility] Calculus of prostate Active Condition Aug 03, 2021 Entered By: JEN ARREDONDO OR Ti Comment: Completed biopsy at [facility] with community Urologist, was informed there is no evidence of malignancy [facility] CVD - Cerebrovascular Disease ([facility] [id number]) Active Condition [facility] Diabetes Mellitus Type 2 ([facility] [id number]) Active Condition [facility] Diastolic dysfunction Active Condition Oct 11, 2022 Entered By: JEN ARREDONDO OR Ti Comment: Grade I, per ECHO completed on 09/25/22, see [facility] History of arthroplasty of right knee Active Condition Aug 03, 2022 Entered By: JEN ARREDONDO Comment: completed on 08/01/16. Performed by Dr. Lombardi [facility] History of repair of inguinal hernia Active Condition Aug 03 Entered By: JEN ARREDONDO OR Ti Comment: right open inguinal hernia repair performed on 04/11/[address] Sotero Corey at [facility] History of repair of umbilical hernia Active Condition Aug 03, 2022 Entered By: JEN ARREDONDO Comment: completed on 04/24/2003 [facility] History of tonsillectomy Active Condition Aug 03, 2022 Entered By: JEN ARREDONDO Comment: completed on 04/13/1977 [facility] HTN - Hypertension ([facility] [id number]) Active Condition [facility] Hyperlipidemia ([facility] [id number]) Active Condition [facility] Neuropathy Due to Type 2 Diabetes Mellitus ([facility] [id number]) Active Condition [facility] Patent foramen ovale Active Condition Aug 03, 2021 Entered By: JEN ARREDONDO OR Ti Comment: amplatzer cribriform occluder placed 05/13/18 at [facility] by Dr. Jennifer Estrada [facility] Patent foramen ovale Active Condition Aug 03, 2022 Entered By: JEN ARREDONDO OR Ti Comment: Closure completed on 05/13/[address] Estrada. 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 Medication Details Route Status Patient Instructions Prescription Expires Prescription Number Last Dispense Date Ordering Provider Order Date Order Qty Source ASCORBIC ACID 500MG TAB TAKE ONE TABLET BY MOUTH ONCE A DAY ORAL ACTIVE ANGELA ARREDONDO 2022 [facility] ASPIRIN 81MG TAB,EC TAKE ONE TABLET BY MOUTH ONCE A DAY ORAL ACTIVE VINICIUS SILVEIRA 2017 [facility] ATORVASTATI N CA 80MG TAB TAKE ONE-HALF TABLET BY MOUTH EVERY EVENING ORAL ACTIVE VINICIUS SILVEIRA 2017 [facility] ATORVASTATI N CALCIUM (atorvastat in calcium), 40 MG, TABLET, ORAL, [employer], 1000 ea. BOTTLE Active [id number] 4 2023 90 Pharmac y Data Transac tion Service Facilit y GABAPENTIN (gabapentin ), 300 MG, CAPSULE, ORAL, [employer] 1000 ea. BOTTLE Active [id number] 4 2023 270 Pharmac y Data Transac tion Service Facilit y GABAPENTIN (gabapentin ), 300 MG, CAPSULE, ORAL, [employer], 270 ea. BOTTLE Active [id number] 4 2023 270 Pharmac y Data Transac tion Service Facilit y GABAPENTIN 300MG CAP TAKE 1 CAPSULE BY MOUTH THREE TIMES A DAY ORAL ACTIVE ANGELA ARREDONDO 2021 [facility] GINSENG CAP/TAB TAKE 1 CAP/TAB BY MOUTH ORAL ACTIVE ANGELA ARREDONDO 2022 [facility] LISINOPRIL (lisinopril ), 5 MG, TABLET, ORAL, [employer]ACE, 1000 ea. BOTTLE Active [id number] 4 2023 90 Pharmac y Data Transac tion Service Facilit y LISINOPRIL 10MG TAB TAKE ONE-HALF TABLET BY MOUTH ONCE A DAY ORAL ACTIVE VINICIUS SILVEIRA 2017 [facility] METFORMIN HCL 500MG 24HR TAB,SA TAKE ONE TABLET BY MOUTH ONCE A DAY ORAL ACTIVE VINICIUS SILVEIRA 2017 [facility] METFORMIN HCL ER (metformin HCl), 500 MG, TAB ER 24H, ORAL, [employer], 1000 ea. BOTTLE Active [id number] 4 2023 90 Pharmac y Data Transac tion Service Facilit y METFORMIN HCL ER (metformin HCl), 500 MG, TAB ER 24H, ORAL, [employer], 90 ea. BOTTLE Active [id number] 4 2023 90 Pharmac y Data Transac tion Service Facilit y MULTIVITAMI NS CAP/TAB TAKE ONE TABLET BY MOUTH ONCE A DAY ORAL ACTIVE ANGELA ARREDONDO 2022 [facility] NAPROXEN 250MG TAB TAKE ONE TABLET BY MOUTH TWICE A DAY NEEDED ORAL ACTIVE ANGELA ARREDONDO 2022 [facility] VITAMIN E (OTC) CAP,ORAL TAKE 500MG BY MOUTH ONCE A DAY ORAL ACTIVE ANGELA ARREDONDO 2022 [facility] Allergies, Adverse Reactions, Alerts Combined list of allergies from Department of Defense and Veterans Affairs facilities. It does not include entries that were removed or entered in error. Substance Category Reaction Severity Reaction type Status Date Reported Comments Source HAZELNUTS Propensity to adverse reactions to food (finding) Urticaria active 8 [facility] Immunizations Combined list of available immunizations from the Department of Defense and Veterans Affairs facilities. Immunization Series Date Given Administered By Site Reaction Lot Number CVX Code Drug Airplane Tube Builder Status Comments Source INFLUENZA, UNSPECIFIED FORMULATION 2023 88 complet ed [facility] INFLUENZA, UNSPECIFIED FORMULATION 2022 88 complet ed [facility] INFLUENZA, UNSPECIFIED FORMULATION 2020 88 complet ed [facility] COVID-19 (PFIZER), MRNA, LNP-S, PF, 30 MCG/0.3 ML DOSE 3 2020 208 complet ed [facility] COVID-19 (PFIZER), MRNA, LNP-S, PF, 30 MCG/0.3 ML DOSE 2 2020 208 complet ed PFR; [id number]; 1 [facility] COVID-19 ([employer]), MRNA, LNP-S, PF, 30 MCG/0.3 ML DOSE 1 2020 208 complet ed PFR; [id number]; 1 [facility] INFLUENZA, UNSPECIFIED FORMULATION 3 2019 88 complet ed [facility] TDAP 2019 115 complet ed [facility] INFLUENZA, UNSPECIFIED FORMULATION 2018 88 complet ed [facility] INFLUENZA, UNSPECIFIED FORMULATION 2017 88 complet ed [facility] INFLUENZA, HIGH DOSE SEASONAL 2 2017 135 complet ed [facility] TDAP 2017 115 complet ed Right Deltoid [facility] INFLUENZA, UNSPECIFIED FORMULATION 2016 88 complet ed [facility] INFLUENZA, UNSPECIFIED FORMULATION 1 2016 88 complet ed [facility] PNEUMOCOCCAL POLYSACCHARID E PPV23 2015 33 complet ed [facility] PNEUMOCOCCAL CONJUGATE PCV 13 2014 133 complet ed yes [facility] ZOSTER LIVE 2001 121 complet ed [facility] Vital Signs Combined list of inpatient and outpatient Vital Signs from Department of Defense and Veterans Affairs, ranging from 12 months to all on record, depending upon the facility. Vital Sign Value Date Comments Source SYSTOLIC BLOOD PRESSURE 128 09/14/2024 11:01:38 [facility] DIASTOLIC BLOOD PRESSURE 71 09/14/2024 11:01:38 [facility] PULSE OXIMETRY 99 09/14/2024 [facility]:01:38 [facility] WEIGHT 200 09/14/[facility]24 [facility]01:38 [facility] BMI 32 kg/m2 09/14/2024 11:01:38 [facility] PAIN 1 09/14/2024 11:01:38 [facility] TEMPERATURE 97.7 09/14/2024 11:01:38 [facility] PULSE 84 09/14/2024 11:01:38 [facility] RESPIRATION 18 09/14/2024 11:01:38 [facility] Encounters Combined list of: 1) Encounters from Department of Veterans Affairs facilities going backup to the last 18 months, not all VA inpatient encounters are included; 2) Encounters from the Department of Defense facilities going backup to 280 months. Location Location Details Encounter Type Encounter Number Reason For Visit Attending Provider ADM Date DC Date Status Disposition Source [address] [place] [address] [place] OUTPATIENT [id number] Notes Entered by: Ti DHALIWAL 04 Sep 2013 1128 ------- ------- ------- ------- -- W/i glasses order IRINA BRANDT 09/04 Released w/o Limitations [employer] [facility] [place] [facility] [place] [facility] [place] OUTPATIENT [id number] Notes Entered by: Ti DHALIWAL 23 Mar 2016 1326 ------- ------- ------- ------- -- W/i glasses order DICKSON DHALIWAL 03/23 Released w/o Limitations [facility] [employer] [place] [facility] [employer] [place]Opt [place] OUTPATIENT [id number] Notes Entered by: LORRAINE COREY 03 May 2016 1349 ------- ------- ------- ------- -- W/I Glass Adjustm ent SANYA ARRIOLA 05/03 Released w/o Limitations [facility] [employer] [place] ([facility] pt[facility] [employer] [facility] [place]Opt [place] OUTPATIENT [id number] Notes Entered by: Ti DHALIWAL 19 Jun 2017 0837 ------- ------- ------- ------- -- w/i glasses order DICKSON DHALIWAL 06/19 Released w/o Limitations [facility] [employer] [place] [facility] [employer] [facility] [place]Opt [place] OUTPATIENT [id number] Notes Entered by: LORRAINE COREY 19 May 2019 1148 ------- ------- ------- ------- -- Glasses Ordered LORRAINE COREY 05/19 Released w/o Limitations [facility] [employer] ([facility]O ptometr y) [facility] [place]Opt [place]metry[place] OUTPATIENT [id number] Notes Entered by: LORRAINE COREY 03 May 2020 1033 ------- ------- ------- ------- -- Glasses Ordered LORRAINE COREY 05/03 Released w/o Limitations [facility] [employer] [facility] pt[place]r y[place] [facility] Outpatient Encounter [id number] 04/14 [facility] Outpatient Encounter [id number] 07/17 [facility] Outpatient Encounter [id number] 08/02 [facility] OFFICE O/P EST MOD 30 MIN [id number] Diagnos is: ICD-10- CM H40.013 Open angle with borderl ine finding s, low risk, bilater al TRUMAN VARELA THI 09/03 [facility] Outpatient Encounter [id number] [facility] OFFICE O/P EST LOW 20 MIN [id number] Diagnos is: ICD-10- CM Z00.01 Encount er for general adult medical exam w abnorma l finding s Richard ARREDONDO L 09/12 [facility] OFF/OP CNSLTJ NEW/EST LOW 30 [id number] Diagnos is: ICD-10- CM E11.40 Type 2 diabete s mellitu s with diabeti c neuropa thy, unsp JING,ST UART L 10/02 [facility] OFFICE O/P EST LOW 20 MIN [id number] Diagnos is: ICD-10- CM H40.013 Open angle with borderl ine finding s, low risk, bilclari ayala TRUMAN VARELA THI 02/24 [facility] En[facility] [id number] 03/15 [facility] En[facility] [id number] 03/26 [facility] OFFICE O/P EST LOW 20 MIN [id number] Diagnos is: ICD-10- CM L60.3 Nail dystrop hy JINGST UART L 03/26 [facility] OFFICE O/P EST MOD 30 MIN [id number] Diagnos is: ICD-10- CM H40.013 Open angle with borderl ine finding s, low risk, bilRusty Crandall 08/24 [facility] OFFICE O/P EST LOW 20 MIN [id number] Diagnos is: ICD-10- CM I67.9 Cerebro vascula r disease , unspeci Richard Guthrie 09/14 [facility] Procedures Combined list of: 1) Procedures from Department of Veterans Affairs facilities going back up to thelast 18 months, not all VA non-surgical procedures are included; 2) All procedures from the Department of Defense facilities. Procedure Procedure Type Code Date Perfomer Comments Sourc e Spectacles Services Fitting Multifocal Except For Aphakia Spectacles Services Fitting Multifocal Except For Aphakia 80183 06/19/2017 DICKSON DHALIWAL Spectacles Services Fitting Bifocal Except For Aphakia Spectacles Services Fitting Bifocal Except For Aphakia 79925 05/04/2016 SANYA ARRIOLA [facility] Spectacles Services Fitting Multifocal Except For Aphakia Spectacles Services Fitting Multifocal Except For Aphakia 19493 03/23/2016 DICKSON DHALIWAL DoD Spectacles Services Fitting Multifocal Except For Aphakia Spectacles Services Fitting Multifocal Except For Aphakia 91498 09/04/2013 IRINA BRANDT DoD Spectacles Services Fitting Multifocal For Aphakia Spectacles Services Fitting Multifocal For Aphakia 07523 LORRAINE COREY DoD Spectacles Services Fitting Monofocal Except For Aphakia Spectacles Services Fitting Monofocal Except For Aphakia 92687 LORRAINE COREY DoD FITTING OF SPECTACLES, EXCEPT FOR APHAKIA; MONOFOCAL 05/03/2020 DoD FITTING OF SPECTACLE PROSTHESIS FOR APHAKIA; MULTIFOCAL 05/19/2019 DoD FITTING OF SPECTACLES, EXCEPT FOR APHAKIA; MULTIFOCAL, OTHER THAN BIFOCAL 06/19/2017 DoD FITTING OF SPECTACLES, EXCEPT FOR APHAKIA; BIFOCAL 05/03/2016 DoD FITTING OF SPECTACLES, EXCEPT FOR APHAKIA; MULTIFOCAL, OTHER THAN BIFOCAL 03/23/2016 DoD FITTING OF SPECTACLES, EXCEPT FOR APHAKIA; MULTIFOCAL, OTHER THAN BIFOCAL 09/04/2013 [facility]D Social History Combined list of available smoking, tobacco, and other social history from Department of Defense and Veterans Affairs facilities. Social History Type Response Date Comment Sourc e Tobacco smoking status NHIS VA-TOBACCO NEVER USED OTHER TYPE 09/14/2024 [facility] History of tobacco use VA-TOBACCO USE FORMER CIGARETTES 09/14/2024 [facility] History of tobacco use VA-TOBACCO FORMER USER 09/13/2023 [facility] History of tobacco use VA-TOBACCO FORMER USER 08/02/2022 [facility] History of tobacco use VA-TOBACCO FORMER USER 08/03/2021 [facility] History of tobacco use VA-TOBACCO QUIT 15 YRS OR MORE 08/22/2018 [facility] History of tobacco use VA-TOBACCO FORMER USER 08/22/2018 [facility] This section is an empty social history section. DoD Plan of Care List of future care activities from Department of Veterans Affairs facilities. Additional future care activities may be listed in the Assessment and Plan section. Date/Time Care Activity Care Activity Detail Facili ty 10/09/2024 AMBULATORY - SURGERY AMBULATORY - SURGERY [facility] 02/15/2025 AMBULATORY - SURGERY AMBULATORY - SURGERY [facility]
--- OUTSIDE RECORDS SUMMARY | 2024-09-21 08:08 | XMS_ITS | Patient Health Summary ---
Author Organization [facility] Address [address] [place] [address] Care Team Providers Care Paralegal Secretary Name Role Phone Eric Molina MD Primary Care Provider [phone] Eric Molina MD Unavailable [phone] Nadine Goldstein MD Unavailable [phone] Note from [facility],non-owned Affiliates and Associated Physician Practices is amultiple site organization consisting of ambulatory clinics and hospital sitesin [place], [place], [place] and [place]. This disclosure is being madepursuant to the Care Everywhere program and may not contain all information available regarding this patient. Last updated 18.[facility] Allergies * Tree Nuts(Anaphylaxis,Rash) -High Criticality Medications * Be aware that medications may not be up to date on this document. Alwaysverify current medications with the patient. * Gelatin 600 MG Take 500 mg by mouth once daily * Ascorbic Acid (VITAMIN C) 500 MG Take 1 capsule by mouth once daily * Ginseng 250 MG Take 1 capsule by mouth once daily * vitamin E (Tocopheryl) 400 UNIT capsule Take 1 (one) capsule by mouth once daily * aspirin (ASPIRIN) 81 MG chew tablet Take 1 (one) tablet by mouth once daily * metFORMIN ER 24hr (GLUCOPHAGE XR) 500 MG tablet Take 1 (one) tablet by mouth daily with dinner * Multiple Vitamins-Minerals (MULTI-VITAMIN/MINERALS) TABS Take 1 (one) tablet by mouth * Kutneoqufzw-Budqjuacr-Sfq C-Mn (GLUCOSAMINE CHONDROITIN COMPLX) CAPS * gabapentin (Neurontin) 300 MG capsule(Started 10/09/2022) Take 1 (one) capsule by mouth 3 times daily * atorvastatin (Lipitor) 40 MG tablet(Started 12/06/2023) TAKE 1 TABLET AT BEDTIME 3 refills by 12/05/2024 * lisinopril (Prinivil; Zestril) 5 MG tablet(Started 12/06/2023) TAKE 1 TABLET DAILY 3 refills by 12/05/2024 Active Problems Problem Noted Date Diagnosed Date 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, low risk, dorothy ateral 04/05/2021 History of urinary retention 08/29/2020 Benign prostatic hyperplasia with lower urinary tract symptoms 06/27/2020 Insomnia, unspecified 06/27/2020 Low back pain 06/27/2020 Male erectile dysfunction, unspecified 0 Obesity, unspecified 06/27/2020 Presence of urogenital implants 06/27/2020 Cryptogenic stroke 06/21/2020 Type 2 diabetes mellitus 06/21/2020 Spinal epidural abscess 06/21/2020 Hyperlipidemia 06/21/2020 Intraspinal abscess and granuloma 06/20/2020 [...] 04/19/2021 Atrial septal defect 09/10/2017 018 Immunizations * Covid Pfizer primary monovalent 12+ yr 0.3mL Purple cap(Given 04/16/2021, 08/23/2020, 08/02/2020) * INFLUENZA VACCINE(Given 04/14/2020, 04/14/2019, 04/17/2018, 04/05/2017) * INFLUENZA VACCINE, HIGH-DOSE, QUADR. (FLUZONE HIGH-DOSE QUADRIVALENT; 65Y+), 0.7 ML (HD-IIV4)(Given 04/24/2018, 03/25/2018) * PNEUMOCOCCAL PPSV23(Given 07/15/2015) * Pneumococcal Pcv13 Conj(Given 07/15/2014) * TDAP (7yrs+)(Given 12/17/2019, 08/22/2017) * iNFLUENZA VACCINE, RECOM-LITTLEJOHN, QUADR. 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 Oxygen Saturation 100% 09/24/2023 11:17 AM CDT Inhaled Oxygen Concentration - - Weight 89.8 kg (198 lb) 09/24/2023 11:17 AM CDT Height 167.6 cm (5' 6 ) 09/24/2023 11:17 AM CDT Body Mass Index 31.96 09/24/2023 11:17 AM CDT Medical Devices Implanted Type Area Bank Credit Card Collection Clerk Device Identifier Shelf Expiration Date Model / Serial / Lot Occl Sept Cribifrm 18mm Implanted:Qty: 1 on 05/13/2018 by Eric Estrada MD at [facility] [employer] 12/12/2022 [id number] Procedures * ECHO COMPLETE(Performed 10/31/2023) Performed for Aortic valve stenosis, etiology of cardiac valve disease unspecified * ECHO COMPLETE(Performed 09/25/2022) Performed for Aortic valve stenosis, etiology of cardiac valve disease unspecified * PROC EKG IN CLINIC(Performed 10/10/2021) Performed for Hypertension, unspecified type * ECHO COMPLETE(Performed 10/10/2021) Performed for S/P patent foramen ovale closure * CT ABDOMEN PELVIS W CONTRAST(Performed 05/05/2021) Performed for Hepatic abscess (HCC) * IR PERC DRAINAGE CATH EXCHANGE(Performed 04/26/2021) Performed for Hepatic abscess (HCC) * CARDIAC EKG ORDER(Performed 04/19/2021) * GLUCOSE - POINT OF CARE(Performed 04/17/2021) * GLUCOSE - POINT OF CARE(Performed 04/17/2021) * GLUCOSE - POINT OF CARE(Performed 04/17/2021) * GLUCOSE - POINT OF CARE(Performed 04/16/2021) * GLUCOSE - POINT OF CARE(Performed 04/16/2021) * GLUCOSE - POINT OF CARE(Performed 04/16/2021) * GLUCOSE - POINT OF CARE(Performed 04/16/2021) * GLUCOSE - POINT OF CARE(Performed 04/15/2021) * GLUCOSE - POINT OF CARE(Performed 04/15/2021) * GLUCOSE - POINT OF CARE(Performed 04/15/2021) * COMPREHENSIVE METABOLIC PANEL(Performed 04/15/2021) * CBC W/O DIFFERENTIAL(Performed 04/15/2021) * GLUCOSE - POINT OF CARE(Performed 04/15/2021) * GLUCOSE - POINT OF CARE(Performed 04/14/2021) * GLUCOSE - POINT OF CARE(Performed 04/14/2021) * GLUCOSE - POINT OF CARE(Performed 04/14/2021) * IR PICC LINE INSERT(Performed 04/14/2021) Performed for Hepatic abscess (HCC) * GLUCOSE - POINT OF CARE(Performed 04/14/2021) * CBC W/O DIFFERENTIAL(Performed 04/14/2021) * MAGNESIUM BLOOD(Performed 04/14/2021) * BASIC METABOLIC PANEL (CALCIUM TOTAL)(Performed 04/14/2021) * GLUCOSE - POINT OF CARE(Performed 04/13/2021) * GLUCOSE - POINT OF CARE(Performed 04/13/2021) * AL COLONOSCOPY, DIAGNOSTIC(Performed 04/13/2021) Performed for Bacteremia * ENDOSCOPY, COLON, DIAGNOSTIC(Performed 04/13/2021) * GLUCOSE - POINT OF CARE(Performed 04/13/2021) * PT-INR SLH(Performed 04/13/2021) * RENAL FUNCTION PANEL(Performed 04/13/2021) * MAGNESIUM BLOOD(Performed 04/13/2021) * CBC W/O DIFFERENTIAL(Performed 04/13/2021) * GLUCOSE - POINT OF CARE(Performed 04/13/2021) * GLUCOSE - POINT OF CARE(Performed 04/12/2021) * GLUCOSE - POINT OF CARE(Performed 04/12/2021) * GLUCOSE - POINT OF CARE(Performed 04/12/2021) * DIFFERENTIAL MANUAL(Performed 04/12/2021) * COMPREHENSIVE METABOLIC PANEL(Performed 04/12/2021) * CBC W AUTO DIFFERENTIAL(Performed 04/12/2021) * GLUCOSE - POINT OF CARE(Performed 04/12/2021) * GLUCOSE - POINT OF CARE(Performed 04/11/2021) * GLUCOSE - POINT OF CARE(Performed 04/11/2021) * LACTIC ACID BLOOD(Performed 04/11/2021) * GLUCOSE - POINT OF CARE(Performed 04/11/2021) * MRI ABDOMEN W MRCP WWO CONT W3D(Performed 04/11/2021) Performed for Hepatic abscess (HCC) * GLUCOSE - POINT OF CARE(Performed 04/11/2021) * ALPHA FETOPROTEIN BLOOD TUMOR MARKER(Performed 04/11/2021) * CEA BLOOD(Performed 04/11/2021) * CANCER ANTIGEN (CA) 19-9(Performed 04/11/2021) * CBC W AUTO DIFFERENTIAL(Performed 04/11/2021) * GLUCOSE - POINT OF CARE(Performed 04/10/2021) * GLUCOSE - POINT OF CARE(Performed 04/10/2021) * GLUCOSE - POINT OF CARE(Performed 04/10/2021) * VAS CAROTID DUPLEX BILATERAL(Performed 04/10/2021) Performed for TIA (transient ischemic attack) * GLUCOSE - POINT OF CARE(Performed 04/10/2021) * HEPATIC FUNCTION PANEL(Performed 04/10/2021) * BASIC METABOLIC PANEL (CALCIUM TOTAL)(Performed 04/10/2021) * CBC W AUTO DIFFERENTIAL(Performed 04/10/2021) * GLUCOSE - POINT OF CARE(Performed 04/09/2021) * GLUCOSE - POINT OF CARE(Performed 04/09/2021) * PHOSPHORUS BLOOD(Performed 04/09/2021) * COMPREHENSIVE METABOLIC PANEL(Performed 04/09/2021) * CBC W/O DIFFERENTIAL(Performed 04/09/2021) * GLUCOSE - POINT OF CARE(Performed 04/09/2021) * GLUCOSE - POINT OF CARE(Performed 04/09/2021) * GLUCOSE - POINT OF CARE(Performed 04/08/2021) * GLUCOSE - POINT OF CARE(Performed 04/08/2021) * GLUCOSE - POINT OF CARE(Performed 04/08/2021) * PHOSPHORUS BLOOD(Performed 04/08/2021) * MAGNESIUM BLOOD(Performed 04/08/2021) * COMPREHENSIVE METABOLIC PANEL(Performed 04/08/2021) * CBC W AUTO DIFFERENTIAL(Performed 04/08/2021) * GLUCOSE - POINT OF CARE(Performed 04/08/2021) * GLUCOSE - POINT OF CARE(Performed 04/07/2021) * GLUCOSE - POINT OF CARE(Performed 04/07/2021) * GLUCOSE - POINT OF CARE(Performed 04/07/2021) * ENTAMOEBA HISTOLYTICA ANTIBODY(Performed 04/07/2021) * ERYTHROCYTE SEDIMENTATION RATE(Performed 04/07/2021) * C-REACTIVE PROTEIN(Performed 04/07/2021) * PHOSPHORUS BLOOD(Performed 04/07/2021) * MAGNESIUM BLOOD(Performed 04/07/2021) * CBC W AUTO DIFFERENTIAL(Performed 04/07/2021) * COMPREHENSIVE METABOLIC PANEL(Performed 04/07/2021) * HEMOGLOBIN A1C(Performed 04/07/2021) * LIPID PROFILE(Performed 04/07/2021) * GLUCOSE - POINT OF CARE(Performed 04/07/2021) * ECHO COMPLETE(Performed 04/07/2021) Performed for Hepatic abscess (HCC), Fever in other diseases, PFO (patent foramen ovale) (HCC), TIA(transient ischemic attack) * MRI LUMBAR SPINE WWO CONTRAST(Performed 04/07/2021) Performed for Fever, unspecified fever cause, Leukocytosis, unspecified type, Osteomyelitis of vertebra, lumbar region (HCC) * MRI THORACIC SPINE WWO CONT(Performed 04/07/2021) Performed for Fever, unspecified fever cause, Leukocytosis, unspecified type, Osteomyelitis of vertebra, lumbar region (HCC) * MRI CERVICAL SPINE WWO CONT(Performed 04/07/2021) Performed for Fever, unspecified fever cause, Leukocytosis, unspecified type, Osteomyelitis of vertebra, lumbar region (HCC) * GLUCOSE - POINT OF CARE(Performed 04/07/2021) * GLUCOSE - POINT OF CARE(Performed 04/06/2021) * XR KNEE RIGHT 2VW OR LESS(Performed 04/06/2021) Performed for Fever, unspecified fever cause, Leukocytosis, unspecified type, S/P total knee arthroplasty, right * XR PANOREX(Performed 04/06/2021) Performed for Leukocytosis, unspecified type, Fever in other diseases * IR DRAIN W CATH PLACEMENT(Performed 04/06/2021) Performed for Fever, unspecified fever cause, Leukocytosis, unspecified type, Hepatic abscess (HCC) * CYTOLOGY NON-MATERIAL STOCKKEEPER YARD PANEL (STL)(Performed 04/06/2021) Performed for Leukocytosis, unspecified type, Fever in other diseases * CULTURE AFB+SMEAR(Performed 04/06/2021) * CULTURE FUNGUS OTHER+FUNGUS SMEAR(Performed 04/06/2021) * CULTURE ANAEROBE(Performed 04/06/2021) * CULTURE FLUID+GRAM STAIN(Performed 04/06/2021) * GLUCOSE - POINT OF CARE(Performed 04/06/2021) * GLUCOSE - POINT OF CARE(Performed 04/06/2021) * CBC W AUTO DIFFERENTIAL(Performed 04/06/2021) * PHOSPHORUS BLOOD(Performed 04/06/2021) * MAGNESIUM BLOOD(Performed 04/06/2021) * COMPREHENSIVE METABOLIC PANEL(Performed 04/06/2021) * GLUCOSE - POINT OF CARE(Performed 04/06/2021) * GLUCOSE - POINT OF CARE(Performed 04/05/2021) * GLUCOSE - POINT OF CARE(Performed 04/05/2021) * GLUCOSE - POINT OF CARE(Performed 04/05/2021) * CARDIAC EKG ORDER(Performed 04/05/2021) * CT CHEST ABDOMEN PELVIS W CONT(Performed 04/05/2021) Performed for Weakness, Tachycardia, Fever, unspecified fever cause, Leukocytosis, unspecified type * GLUCOSE - POINT OF CARE(Performed 04/05/2021) * PHOSPHORUS BLOOD(Performed 04/05/2021) * MAGNESIUM BLOOD(Performed 04/05/2021) * CBC W AUTO DIFFERENTIAL(Performed 04/05/2021) * COMPREHENSIVE METABOLIC PANEL(Performed 04/05/2021) * URINE DRUG SCREEN IMMUNOASSAY(Performed 04/05/2021) * GLUCOSE - POINT OF CARE(Performed 04/04/2021) * GLUCOSE - POINT OF CARE(Performed 04/04/2021) * GLUCOSE - POINT OF CARE(Performed 04/04/2021) * ED LUMBAR PUNCTURE(Performed 04/04/2021) * SARS-COV-2 (COVID-19) IN HOUSE(Performed 04/04/2021) * TROPONIN I(Performed 04/04/2021) * MRI BRAIN WO CONTRAST(Performed 04/04/2021) Performed for Weakness * URINALYSIS REFLEX TO MICROSCOPIC NO CULTURE(Performed 04/04/2021) * TROPONIN I(Performed 04/03/2021) * XR ABDOMEN KUB PORTABLE(Performed 04/03/2021) Performed for Weakness * BLOOD TYPE VERIFICATION(Performed 04/03/2021) * TYPE + SCREEN PANEL(Performed 04/03/2021) * EKG 12-LEAD(Performed 04/03/2021) Performed for Weakness * XR CHEST 1VW PORTABLE(Performed 04/03/2021) Performed for Cough * COMPREHENSIVE METABOLIC PANEL(Performed 04/03/2021) * CULTURE BLOOD(Performed 04/03/2021) * TROPONIN I(Performed 04/03/2021) * LACTIC ACID BLOOD REFLEX TO REPEAT(Performed 04/03/2021) * PT-INR SLH(Performed 04/03/2021) * CBC W AUTO DIFFERENTIAL(Performed 04/03/2021) * CULTURE BLOOD(Performed 04/03/2021) * CT BRAIN STROKE(Performed 04/03/2021) Performed for Weakness * CARDIAC PROCEDURE ORDER(Performed 04/06/2020) * EP LOOP RECORDER EXPLANT(Performed 03/25/2020) Performed for Cryptogenic stroke (HCC) * AL INTG DVC E R 30 D;REC TRANS & TR(Performed 03/14/2020) Performed for Cryptogenic stroke (HCC), Encounter for loop recorder check * AL ILR DEVICE INTERROGAT REMOTE(Performed 03/14/2020) Performed for Cryptogenic stroke (HCC), Encounter for loop recorder check * CARDIAC PROCEDURE ORDER(Performed 03/08/2020) * AL INTG DVC E R 30 D;REC TRANS & TR(Performed 01/29/2020) Performed for Cryptogenic stroke (HCC), Encounter for loop recorder check * AL ILR DEVICE INTERROGAT REMOTE(Performed 01/29/2020) Performed for Cryptogenic stroke (HCC), Encounter for loop recorder check * CARDIAC PROCEDURE ORDER(Performed 01/27/2020) * AL INTG DVC E R 30 D;REC TRANS & TR(Performed 01/01/2020) Performed for Cryptogenic stroke (HCC), Encounter for loop recorder check * AL ILR DEVICE INTERROGAT REMOTE(Performed 01/01/2020) Performed for Cryptogenic stroke (HCC), Encounter for loop recorder check * CARDIAC PROCEDURE ORDER(Performed 12/24/2019) * AL INTG DVC E R 30 D;REC TRANS & TR(Performed 11/26/2019) Performed for Cryptogenic stroke (HCC), Encounter for loop recorder check * AL ILR DEVICE INTERROGAT REMOTE(Performed 11/26/2019) Performed for Cryptogenic stroke (HCC), Encounter for loop recorder check * AL TTE W/DOPPLER, COMPLETE(Performed 11/24/2019) Performed for PFO (patent foramen ovale) (HCC) * CARDIAC PROCEDURE ORDER(Performed 11/19/2019) * AL INTG DVC E R 30 D;REC TRANS & TR(Performed 10/16/2019) Performed for Cryptogenic stroke (HCC), Encounter for loop recorder check * AL ILR DEVICE INTERROGAT REMOTE(Performed 10/16/2019) Performed for Cryptogenic stroke (HCC), Encounter for loop recorder check * CARDIAC PROCEDURE ORDER(Performed 10/14/2019) * CARDIAC EKG ORDER(Performed 10/01/2019) * AL INTG DVC E R 30 D;REC TRANS & TR(Performed 09/22/2019) Performed for Cryptogenic stroke (HCC), Encounter for loop recorder check * AL ILR DEVICE INTERROGAT REMOTE(Performed 09/22/2019) Performed for Cryptogenic stroke (HCC), Encounter for loop recorder check * CARDIAC PROCEDURE ORDER(Performed 09/11/2019) * AL INTG DVC E R 30 D;REC TRANS & TR(Performed 08/17/2019) Performed for Cryptogenic stroke (HCC), Encounter for loop recorder check * AL ILR DEVICE INTERROGAT REMOTE(Performed 08/17/2019) Performed for Cryptogenic stroke (HCC), Encounter for loop recorder check * CARDIAC PROCEDURE ORDER(Performed 08/06/2019) * AL ICM/ILR REMOTE TECH SERV(Performed 07/20/2019) Performed for Cryptogenic stroke (HCC), Encounter for loop recorder check * AL ILR DEVICE INTERROGAT REMOTE(Performed 07/20/2019) Performed for Cryptogenic stroke (HCC), Encounter for loop recorder check * CARDIAC PROCEDURE ORDER(Performed 07/02/2019) * AL ICM/ILR REMOTE TECH SERV(Performed 06/09/2019) Performed for Cryptogenic stroke (HCC), Encounter for loop recorder check * AL ILR DEVICE INTERROGAT REMOTE(Performed 06/09/2019) Performed for Cryptogenic stroke (HCC), Encounter for loop recorder check * CARDIAC PROCEDURE ORDER(Performed 05/28/2019) * AL ICM/ILR REMOTE TECH SERV(Performed 05/04/2019) Performed for Cryptogenic stroke (HCC), Encounter for loop recorder check * AL ILR DEVICE INTERROGAT REMOTE(Performed 05/04/2019) Performed for Cryptogenic stroke (HCC), Encounter for loop recorder check * CARDIAC PROCEDURE ORDER(Performed 04/22/2019) * AL ICM/ILR REMOTE TECH SERV(Performed 03/23/2019) Performed for Cryptogenic stroke (HCC), Encounter for loop recorder check * AL ILR DEVICE INTERROGAT REMOTE(Performed 03/23/2019) Performed for Cryptogenic stroke (HCC), Encounter for loop recorder check * CARDIAC PROCEDURE ORDER(Performed 03/19/2019) * AL ICM/ILR REMOTE TECH SERV(Performed 02/16/2019) Performed for Cryptogenic stroke (HCC), Encounter for loop recorder check * AL ILR DEVICE INTERROGAT REMOTE(Performed 02/16/2019) Performed for Cryptogenic stroke (HCC), Encounter for loop recorder check * CARDIAC PROCEDURE ORDER(Performed 02/12/2019) * AL ICM/ILR REMOTE TECH SERV(Performed 01/20/2019) Performed for Cryptogenic stroke (HCC), Encounter for loop recorder check * AL ILR DEVICE INTERROGAT REMOTE(Performed 01/20/2019) Performed for Cryptogenic stroke (HCC), Encounter for loop recorder check * CARDIAC PROCEDURE ORDER(Performed 01/08/2019) * AL ICM/ILR REMOTE TECH SERV(Performed 12/11/2018) Performed for Encounter for loop recorder check, Cerebral infarction due to unspecified occlusion or stenosis of unspecified cerebral artery (HCC) * AL ILR DEVICE INTERROGAT REMOTE(Performed 12/11/2018) Performed for Encounter for loop recorder check, Cerebral infarction due to unspecified occlusion or stenosis of unspecified cerebral artery (HCC) * CARDIAC PROCEDURE ORDER(Performed 12/05/2018) * AL PLACE NEEDLE IN VEIN(Performed 11/24/2018) Performed for PFO (patent foramen ovale) (HCC), S/P percutaneous patent foramen ovale closure * AL TTE W/DOPPLER, COMPLETE(Performed 11/24/2018) Performed for PFO (patent foramen ovale) (HCC), S/P percutaneous patent foramen ovale closure * AL ICM/ILR REMOTE TECH SERV(Performed 11/11/2018) Performed for Encounter for loop recorder check, Cryptogenic stroke (HCC) * AL ILR DEVICE INTERROGAT REMOTE(Performed 11/11/2018) Performed for Encounter for loop recorder check, Cryptogenic stroke (HCC) * CARDIAC PROCEDURE ORDER(Performed 10/31/2018) * AL ICM/ILR REMOTE TECH SERV(Performed 10/14/2018) Performed for Encounter for loop recorder check, Cryptogenic stroke (HCC) * AL ILR DEVICE INTERROGAT REMOTE(Performed 10/14/2018) Performed for Encounter for loop recorder check, Cryptogenic stroke (HCC) * PROC EKG IN CLINIC(Performed 10/07/2018) Performed for Cardiac arrhythmia, unspecified cardiac arrhythmia type * CARDIAC PROCEDURE ORDER(Performed 10/03/2018) * AL ICM/ILR REMOTE TECH SERV(Performed 09/09/2018) Performed for Cryptogenic stroke (HCC), Encounter for loop recorder check * AL ILR DEVICE INTERROGAT REMOTE(Performed 09/09/2018) Performed for Cryptogenic stroke (HCC), Encounter for loop recorder check * CARDIAC PROCEDURE ORDER(Performed 08/25/2018) * AL ICM/ILR REMOTE TECH SERV(Performed 08/03/2018) Performed for Cryptogenic stroke (HCC), Encounter for loop recorder check * AL ILR DEVICE INTERROGAT REMOTE(Performed 08/03/2018) Performed for Cryptogenic stroke (HCC), Encounter for loop recorder check * CARDIAC PROCEDURE ORDER(Performed 07/24/2018) * CARDIAC PROCEDURE ORDER(Performed 07/22/2018) * AL ICM/ILR REMOTE TECH SERV(Performed 07/01/2018) Performed for Encounter for loop recorder check, Cryptogenic stroke (HCC) * AL ILR DEVICE INTERROGAT REMOTE(Performed 07/01/2018) Performed for Encounter for loop recorder check, Cryptogenic stroke (HCC) * AL PLACE NEEDLE IN VEIN(Performed 06/26/2018) Performed for PFO (patent foramen ovale) (HCC), S/P percutaneous closure of atrial septal defect * AL TTE W/DOPPLER, COMPLETE(Performed 06/26/2018) Performed for PFO (patent foramen ovale) (HCC), S/P percutaneous closure of atrial septal defect * CT ANGIO PELVIS(Performed 05/25/2018) Performed for Groin swelling * LACTIC ACID BLOOD(Performed 05/25/2018) * COMPREHENSIVE METABOLIC PANEL(Performed 05/25/2018) * CULTURE BLOOD(Performed 05/25/2018) * LACTIC ACID BLOOD(Performed 05/25/2018) * CBC W AUTO DIFFERENTIAL(Performed 05/25/2018) * CULTURE BLOOD(Performed 05/25/2018) * LAB RESULTS ORDER(Performed 05/19/2018) * CARDIAC PROCEDURE ORDER(Performed 05/15/2018) * ECHO LIMITED OR FOLLOWUP(Performed 05/14/2018) Performed for PFO (patent foramen ovale) (HCC) * CCL PFO CLOSURE(Performed 05/13/2018) Performed for PFO (patent foramen ovale) (HCC), TIA (transient ischemic attack) * PT-INR SLH(Performed 05/13/2018) Performed for Cerebral infarction due to unspecified occlusion or stenosis of unspecified cerebral artery (HCC) * COMPREHENSIVE METABOLIC PANEL(Performed 05/13/2018) Performed for Cerebral infarction due to unspecified occlusion or stenosis of unspecified cerebral artery (HCC) * CBC W/O DIFFERENTIAL(Performed 05/13/2018) Performed for Cerebral infarction due to unspecified occlusion or stenosis of unspecified cerebral artery (HCC) * AL ICM/ILR REMOTE TECH SERV(Performed 05/13/2018) Performed for Encounter for loop recorder check, Cryptogenic stroke (HCC) * AL ILR DEVICE INTERROGAT REMOTE(Performed 05/13/2018) Performed for Encounter for loop recorder check, Cryptogenic stroke (HCC) * AL ICM/ILR REMOTE TECH SERV(Performed 04/03/2018) Performed for Encounter for loop recorder check, Cerebral infarction due to unspecified occlusion or stenosis of unspecified cerebral artery (HCC) * AL ILR DEVICE INTERROGAT REMOTE(Performed 04/03/2018) Performed for Encounter for loop recorder check, Cerebral infarction due to unspecified occlusion or stenosis of unspecified cerebral artery (HCC) * AL ICM/ILR REMOTE TECH SERV(Performed 03/03/2018) Performed for Encounter for loop recorder check, Cryptogenic stroke (HCC) * AL ILR DEVICE INTERROGAT REMOTE(Performed 03/03/2018) Performed for Encounter for loop recorder check, Cryptogenic stroke (HCC) * CARDIAC PROCEDURE ORDER(Performed 02/04/2018) * AL ICM/ILR REMOTE TECH SERV(Performed 01/27/2018) Performed for Encounter for loop recorder check, Atrial septal defect (HCC) * AL ILR DEVICE INTERROGAT REMOTE(Performed 01/27/2018) Performed for Encounter for loop recorder check, Atrial septal defect (HCC) * CARDIAC PROCEDURE ORDER(Performed 01/08/2018) * AL ICM/ILR REMOTE TECH SERV(Performed 12/27/2017) Performed for Encounter for loop recorder check, Cryptogenic stroke (HCC) * AL ILR DEVICE INTERROGAT REMOTE(Performed 12/27/2017) Performed for Encounter for loop recorder check, Cryptogenic stroke (HCC) * CARDIAC PROCEDURE ORDER(Performed 12/02/2017) * AL ICM/ILR REMOTE TECH SERV(Performed 11/24/2017) Performed for Encounter for loop recorder check, Cryptogenic stroke (HCC) * AL ILR DEVICE INTERROGAT REMOTE(Performed 11/24/2017) Performed for Encounter for loop recorder check, Cryptogenic stroke (HCC) * PROC LOOP DEVICE CHECK (REMOTE)(Performed 10/17/2017) * PROC LOOP DEVICE CHECK (REMOTE)(Performed 09/13/2017) * LAB HISTORICAL RESULTS-ONBASE(Performed 08/20/2017) * PROC LOOP DEVICE CHECK (REMOTE)(Performed 08/12/2017) * LAB HISTORICAL RESULTS-ONBASE(Performed 08/12/2017) * PROC LOOP DEVICE CHECK (REMOTE)(Performed 07/23/2017) * PROC LOOP DEVICE CHECK (REMOTE)(Performed 06/05/2017) * EP LOOP RECORDER IMPLANT(Performed 04/09/2017) * BASIC METABOLIC PANEL (CALCIUM TOTAL)(Performed 04/09/2017) * CBC W/O DIFFERENTIAL(Performed 04/09/2017) * ECHO MAY TRANSESOPHAGEAL(Performed 04/09/2017) * BASIC METABOLIC PANEL (CALCIUM TOTAL)(Performed 04/08/2017) * CBC W/O DIFFERENTIAL(Performed 04/08/2017) * TROPONIN I(Performed 04/07/2017) * CK + CKMB PANEL(Performed 04/07/2017) * TROPONIN I(Performed 04/07/2017) * CK + CKMB PANEL(Performed 04/07/2017) * DRUG ABUSE PANEL 10-20+ETHANOL URINE NO CONFIRM(Performed 04/07/2017) * LIPID PROFILE(Performed 04/07/2017) * HEPATIC FUNCTION PANEL(Performed 04/07/2017) * PHOSPHORUS BLOOD(Performed 04/07/2017) * MAGNESIUM BLOOD(Performed 04/07/2017) * BASIC METABOLIC PANEL (CALCIUM TOTAL)(Performed 04/07/2017) * CBC W/O DIFFERENTIAL(Performed 04/07/2017) * HEMOGLOBIN A1C(Performed 04/07/2017) * ECHO COMPLETE(Performed 04/07/2017) * EKG 12-LEAD(Performed 04/07/2017) * CT ANGIO BRAIN AND NECK(Performed 04/06/2017) * BASIC METABOLIC PANEL (CALCIUM TOTAL)(Performed 04/06/2017) * TROPONIN I(Performed 04/06/2017) * CK + CKMB PANEL(Performed 04/06/2017) * CBC W AUTO DIFFERENTIAL(Performed 04/06/2017) * CBC W AUTO DIFFERENTIAL(Performed 04/06/2017) Results * ECHO COMPLETE (10/31/2023 1:50 PM CDT) LV biplane EF 72 52 - 72 % [facility] CV FUJI PACS LV A2C EF 70 48 - 76 % [facility] CV FUJ I PACS LV A4C EF 73 46 - 74 % [facility] CV FUJ I PACS LV stroke vol BP 62.4 mL [facility] CV FUJI PACS LV stroke vol BP index 31.2 mL/m2 [facility] CV FUJI PACS LVOT stroke vol 102.36 mL [facility] CV FUJI PACS LVOT stroke vol index 51.14 mL/m2 [facility] CV FUJI PACS LV stroke vol 2D teich 31.665 ml [facility]JI PACS LV Stroke Index 2D Teich 15.82 mL/m2 [facility] P[facility] LV stroke vol index A4C MOD 76.36 ml/m2 [facility] PACS LVIDd 3.36 4.2 - 5.8 cm [facility] CV [facility] PACS LVIDs 2.10 2.5 - 4.0 cm [facility] CV [facility] PACS IVSd 2D 1.397 0.6 - 1 cm [facility] PACS LVPWd 1.38 0.6 - 1 cm [facility] PACS Fractional Shortening 2D 25 28 - 44 % [facility] PACS LV ESV BP 24.77 21 - 61 mL [facility] PACS LV ESV index BP 12.4 11 - 31 mL/m2 [facility] PACS LV ESV A2C 28.269 15 - 75 mL [facility] CV [facility]JI PACS LV ESV index A2C 14.12 9 - 37 mL/m2 [facility] PACS LV EDV BP 87.144 62 - 150 mL [facility] FUJI PACS LV ESV A4C 21.199 22 - 78 mL [facility] CV FUJI PACS LV ESV index A4C 10.59 12 - 40 mL/m2 [facility]UJI PACS LV EDV index BP 43.5 34 - 74 mL/m2 [facility] CV FUJI PACS LV EDV A2C 70.452 59 - 175 mL [facility] CV FUJI PACS LV EDV index A2C 35.20 31 - 87 mL/m2 [facility] CV FUJI PACS LV EDV A4C 104.629 mL [facility] CV FU JI PACS LV ESV 2D 14.354 21 - 61 mL [facility] CV FUJI PACS LV EDV index A4C 52.27 37 - 93 mL/m2 [facility] CV FUJI PACS LV ESV index 2D 7.17 11 - 31 mL/m2 [facility] CV FUJI PACS LV EDV 2D 46.019 62 - 150 mL [facility] CV FUJI PACS LV EDV index 2D 22.99 34 - 74 mL/m2 [facility] CV [facility] PACS LVOT diam 2.2 cm [facility] CV FUJ I PACS LVOT area 3.92 cm2 [facility] CV FUJ I PACS LV RWT 0.819 [facility] CV FUJ I PACS LV Silva A2C 8.52 cm [facility] CV F UJI PACS LV Silva A4C 8.186 cm [facility] CV F UJI PACS IVS/LVPW 1.015 [facility] CV FUJ I PACS LV mass 2D 160.725 96 - 200 g [facility] CV FUJI PACS LV mass index 2D 80.30 50 - 102 g/m2 [facility] CV FUJI PACS MV E pk radha 86.234 cm/s [facility] CV F UJI PACS MV avg E/e' ratio 19.79 SS M CV FUJI PACS MV A pk radha 100.778 cm/s S[facility] CV F UJI PACS MV E A ratio 0.86 [facility] CV FUJI PACS MV E' lateral radha 4.711 cm/s SS M CV FUJI PACS MV DT 260 ms SSM CV FUJ I PACS MV E' septal radha 4.055 cm/s [facility] CV FUJI PACS MV E/e' septal 21.268 SSM C V FUJI PACS MV E/e' lateral 18.304 [facility] CV FUJI PACS LA vol BP 44.646 mL [facility] CV FUJ I PACS TR pk radha 200.3 cm/s [facility] CV [email or web address]] I PACS LVOT pk radha 1.06 m/s [facility] CV F UJI PACS LVOT mn radha 0.80 m/s [facility] CV F UJI PACS LVOT mn grad 2.8 mmHg S[facility] CV FUJI PACS LVOT Cardiac Output 6.703 l/min [facility] CV FUJI PACS LVOT Cardiac Index 3.35 l/min/m2 [facility] CV FUJI PACS LA vol index 22.3 16 - 34 mL/m2 [facility] CV FUJI PACS LA vol BP A-L 46.825 mL [facility] CV FUJI PACS RVIDd 3.7 cm [facility] CV [facility] [[email or web address]] I PACS RVOT VTI 16.146 cm [facility] CV [facility] [[email or web address]] I PACS TV S' radha 16.28 cm/s [facility] CV [facility] [[email or web address]] I PACS TAPSE 2.141 1.7 cm [facility] CV [facility] [[email or web address]] I PACS RVOT pk radha 0.91 m/s S[facility] CV F UJI PACS RA area 16.955 cm2 [facility] CV [facility] [[email or web address]] I PACS AV mn grad 20 mmHg SSM CV FU JI PACS AV pk grad 31 mmHg SSM CV FU JI PACS AV mn radha 2.18 m/s SSM CV FUJ I PACS AV pk radha 3.40 m/s [facility] CV [facility] [[email or web address]] I PACS AV VTI 77.439 cm [facility] CV [facility] [[email or web address]] I PACS LVOT pk grad 4.518 mmHg SSM CV FUJI PACS LVOT VTI 26.113 cm SSM CV FUJ I PACS AV area cont VTI 1.3 cm2 SSM CV FUJI PACS AV area pk radha 1.2 cm2 SSM C V FUJI PACS AV Doppler radha index pk radha 0.313 SSM CV FUJI PACS Dimensionless Index 0.337 SSM CV FUJI PACS MV mn grad 2 mmHg SSM CV FU JI PACS MV pk grad 4 mmHg SSM CV FU JI PACS MV mn radha 0.61 m/s [facility] CV FUJ I PACS MV pk radha 101.811 cm/s [facility] CV FUJ I PACS MV PHT 99 ms SSM CV FUJ I PACS MV area PHT 2.21 cm2 [facility] CV F UJI PACS MV area cont eq 3.89 cm2 [facility] CV FUJI PACS MV VTI 26.306 cm [facility] CV FUJ I PACS MV decel slope 331.474 cm/s2 SSM C V FUJI PACS TR pk grad 16 mmHg SSM CV FU JI PACS RVOT mn grad 2 mmHg SSM CV FUJI PACS RVOT pk grad 3 mmHg SSM CV FUJI PACS PV mn grad 3 mmHg SSM CV FU JI PACS PV pk radha 118.333 cm/s [facility]SM CV FUJ I PACS PV pk grad 6 mmHg SSM CV FU JI PACS PV mn radha 80.082 cm/s [facility] CV FUJ I PACS Ascending aorta 3.20 cm [facility] CV FUJI PACS IVC size 0.8 cm [facility] CV FUJ I PACS BSA 2.3325198 m2 [facility] CV FUJ I PACS LA ESV A4C MOD Index 26 ml/m2 [facility] CV FUJI PACS LA ESV A2C MOD Index 18 ml/m2 [facility] CV FUJI PACS [id number] 7.072 cm [facility] CV FUJ I PACS [id number] 7.302 cm [facility] CV FUJ I PACS Prox Asc Ao Diameter Index 1.596 cm [facility] CV FUJI PACS LVIDs index 1.05 1.3 - 2.1 cm/m2 [facility] CV FUJI PACS LV LVIDd index 1.68 2.2 - 3.0 cm/m2 [facility] CV FUJI PACS Anatomical Region Laterality Modality Ultrasound Narrative 10/31/2023 3:06 PM CDT Left Ventricle: Left ventricle size is normal. Mildly increased wall thickness. Hyperdynamic systolic function with a visually estimated EF of 70 - 75%. Normal wall motion. Grade II diastolic dysfunction with elevated left atrial pressure. Elevated mean left atrial pressure. Tissue Doppler velocity is reduced. Right Ventricle: Right ventricle size is normal. Normal systolic function. Aortic Valve: Not well visualized. Valve structure is trileaflet. Mildly thickened leaflets. Moderately calcified leaflets. Moderately restricted motion. No regurgitation. Moderate stenosis. AV mean gradient is 20 mmHg. AV peak velocity is 3.40 m/s. AV area by continuity VTI is 1.3 cm2. AV area by peak velocity is 1.2 cm2. Left Ventricle Left ventricle size is normal. Mildly increased wall thickness. Hyperdynamic systolic function with a visually estimated EF of 70 - 75%. Normal wall motion. Grade II diastolic dysfunction with elevated left atrial pressure. Elevated mean left atrial pressure. Tissue Doppler velocity is reduced. Right Ventricle Right ventricle size is normal. Normal systolic function. Left Atrium Left atrium size is normal. Left atrium volume index is 22.3 mL/m2. Right Atrium Right atrium size is normal. IVC/SVC IVC diameter is less than or equal to 21 mm and decreases greater than 50% during inspiration; therefore the estimated right atrial pressure is normal (~3 mmHg). Mitral Valve Valve structure is normal. No restricted motion. Trace regurgitation. No stenosis. Tricuspid Valve Valve structure is normal. No restricted motion. Trace regurgitation. The pulmonary artery systolic pressure is normal (under 35 mmHg). No stenosis. Aortic Valve Not well visualized. Valve structure is trileaflet. Mildly thickened leaflets. Moderately calcified leaflets. Moderately restricted motion. No regurgitation. Moderate stenosis. AV mean gradient is 20 mmHg. AV peak velocity is 3.40 m/s. AV area by continuity VTI is 1.3 cm2. AV area by peak velocity is 1.2 cm2. Pulmonic Valve Valve structure is normal. No restricted motion. No regurgitation. No stenosis. Ascending Aorta Normal sized sinus of Valsalva (aortic root) and ascending aorta. Pericardium Evidence of prominent fat pad. No pericardial effusion. Study Details Study quality was adequate. A complete 2D, color Doppler, spectral Doppler and M-mode echocardiogram was performed. The apical, parasternal, subcostal and suprasternal views were obtained. Procedure Note Shalom Eddy MD - 10/31/2023 Left Ventricle: Left ventricle size is normal. Mildly increased wallthickness. Hyperdynamic systolic function with a visually estimated EF of70 - 75%. Normal wall motion. Grade II diastolic dysfunction with elevatedleft atrial pressure. Elevated mean left atrial pressure. Tissue Dopplervelocity is reduced. Right Ventricle: Right ventricle size is normal. Normal systolicfunction. Aortic Valve: Not well visualized. Valve structure is trileaflet.Mildly thickened leaflets. Moderately calcified leaflets. Moderatelyrestricted motion. No regurgitation. Moderate stenosis. AV mean gradientis 20 mmHg. AV peak velocity is 3.40 m/s. AV area by continuity VTI is 1.3cm2. AV area by peak velocity is 1.2 cm2. Betsy Capone MD ECHO CUPID * ECHO COMPLETE (09/25/2022 1:38 PM CDT) Only the most recent of4 resultswithin the time period is included. Anatomical Region Laterality Modality Chest Echo 09/25/2022 11:1 2 AM CDT Narrative Procedure Note Shalom Eddy MD - 09/25/2022 Betsy Capone MD ECHOCARDIOGRAPHY RAD IANT * EKG - Clinic Performed (10/10/2021 10:43 AM CDT) Only the most recent of2 resultswithin the time period is included. Betsy Capone MD ECG ORDERABLES * CT ABDOMEN PELVIS W CONTRAST (05/05/2021 8:50 AM CDT) Anatomical Region Laterality Modality Abdomen, Pelvis Computed Tomogra phy 05/05/2021 10:1 8 AM CDT Impressions 05/05/2021 11:03 AM CDT Impression: 1.Interval decrease in size of the hepatic abscess currently measuring 1.9 x 3.9 x 1.1 cm. Report drafted by Nicko Ruiz (resident) This report was approved by Nicko Ruiz on 05/05/2021 10:49 AM . I, Dr. CECILY LEAL have personally reviewed and interpreted this examination/study. This report was electronically signed by CECILY LEAL on 05/05/2021 11:03 AM . Narrative 05/05/2021 11:03 AM CDT Procedure Information DATE: 05/05/2021 8:51 AM EXAMINATION: Computed tomography (CT) of the abdomen and pelvis with contrast TECHNIQUE: CT of the abdomen and pelvis was performed following the uneventful administration of 100 mL of Isovue 370 intravenous contrast according to standard protocol. Clinical Information HISTORY: K75.0: Hepatic abscess COMPARISON: MRI abdomen dated 04/03/2021. Findings Lower Chest: There is a 6 mm lymph node anterior to the pericardium, likely reactive. Hepatobiliary: There is a hypoattenuating, loculated rim-enhancing hepatic abscess within hepatic segments 4B and 8 currently measuring 1.9 x 3.9 x 1.1 cm (series 3 image 21, series 4 image 28), with adjacent edema, decrease in size as compared to prior. No new abscesses are identified. There is been interval removal of the previously seen surgical drain. There is an area of hypoattenuation adjacent to the falciform ligament, likely representing focal fatty infiltration. Cholelithiasis without evidence of acute cholecystitis. Pancreas: Other than a punctate calcification, the pancreas is unremarkable. Spleen: Normal. Kidneys: Other than small bilateral simple renal cysts, the kidneys are unremarkable. Adrenals: Normal. Retroperitoneum: Normal. Peritoneum: Normal. Gastrointestinal: Colonic diverticulosis without evidence of acute diverticulitis. The stomach and visualized loops of bowel are unremarkable. Appendix: Normal. Pelvic Structures: There is an intraperitoneal focal fat infarction in the right hemipelvis. Vasculature: Scattered atherosclerotic vasculature changes. 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 Bones: The visible osseous structures are intact. Moderate to severe changes are seen in the lower lumbar spine. Soft tissues: Normal. Procedure Note Cecily Leal MD - 05/05/2021 Procedure Information DATE: 05/05/2021 8:51 AM EXAMINATION: Computed tomography (CT) of the abdomen and pelvis with contrast TECHNIQUE: CT of the abdomen and pelvis was performed following the uneventful administration of 100 mL of Isovue 370 intravenous contrast according to standard protocol. Clinical Information HISTORY: K75.0: Hepatic abscess COMPARISON: MRI abdomen dated 04/03/2021. Findings Lower Chest: There is a 6 mm lymph node anterior to the pericardium, likely reactive. Hepatobiliary: There is a hypoattenuating, loculated rim-enhancing hepatic abscesswithin hepatic segments 4B and 8 currently measuring 1.9 x 3.9 x 1.1 cm (series3 image 21, series 4 image 28), with adjacent edema, decrease in size as compared to prior. No new abscesses are identified. There is beeninterval removal of the previously seen surgical drain. There is an area of hypoattenuation adjacent to the falciform ligament, likely representing focal fatty infiltration. Cholelithiasis without evidence of acute cholecystitis. Pancreas: Other than a punctate calcification, the pancreas is unremarkable. Spleen: Normal. Kidneys: Other than small bilateral simple renal cysts, the kidneys are unremarkable. Adrenals: Normal. Retroperitoneum: Normal. Peritoneum: Normal. Gastrointestinal: Colonic diverticulosis without evidence of acute diverticulitis. The stomach and visualized loops of bowel are unremarkable. Appendix: Normal. Pelvic Structures: There is an intraperitoneal focal fat infarction in the righthemipelvis. Vasculature: Scattered atherosclerotic vasculature changes. 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 Bones: The visible osseous structures are intact. Moderate to severe changesare seen in the lower lumbar spine. Soft tissues: Normal. Impression: 1.Interval decrease in size of the hepatic abscess currently measuring1.9 x 3.9 x 1.1 cm. Report drafted by Nicko Ruiz (resident) This report was approved by Nicko Ruiz on 05/05/2021 10:49 AM . I, Dr. CECILY LEAL have personally reviewed and interpreted this examination/study. This report was electronically signed by CECILY LEAL on 111:03 AM . Laina Sanchez PA-C CT ORDERABLES * IR PERC DRAINAGE CATH EXCHANGE (04/26/2021 2:14 PM CDT) Anatomical Region Laterality Modality Abdomen X-Ray Angiograph y 05/14/2021 5:46 PM CDT Narrative 05/14/2021 5:46 PM CDT Patient here for a catheter check. Patient reports significant clinical improvement and no output from drain. A preliminaryfluoro check with contrastscan revealed no residual collection.Contrast was injected which revealed no collection and no communication with bowel. The drain was removed. Patient advised to report in case of worsening clinical symptoms This report was electronically signed by MG MATOS M.D. on 05/14/2021 5:46 PM . Procedure Note Mg Matos MD - 05/14/2021 Patient here for a catheter check. Patient reports significant clinical improvement and no output fromdrain. A preliminaryfluoro check with contrastscan revealed no residual collection.Contrast was injected which revealed no collection and no communication with bowel. The drain was removed. Patient advised to report in case of worsening clinical symptoms This report was electronically signed by MG MATOS M.D. on 05/14/2021 5:46 PM . La Willis MD IR ORDERABLES * CARDIAC EKG ORDER (04/19/2021 5:16 PM CDT) Only the most recent of3 resultswithin the time period is included. Narrative 04/19/2021 5:16 PM CDT Ordered by an unspecified provider. Scanned Document CARDIAC SERVICES ORD ERABLES * GLUCOSE - POINT OF CARE (04/17/2021 4:47 PM CDT) Only the most recent of55 resultswithin the time period is included. Glucose WB/POC 89 70 - 115 mg/dL 04/17/2021 4:54 PM CDT [facility] Specimen Type Arterial 04/17/2021 4:54 PM CDT [facility] Blood BLOOD SPECIMEN / Unknown 04/17/2021 4:47 PM CDT 04/17/2021 4:54 PM CDT Ivy Perez MD LAB - POINT OF CARE ORDERABLES [facility] [address] [place] [address] [phone] * (ABNORMAL) CBC W/O DIFFERENTIAL (04/15/2021 8:22 AM T) Only the most recent of8 resultswithin the time period is included. WBC 12.8(H) 3.5 - 10.5 10 3/uL 04/15/2021 9:37 AM [facility] RBC 4.11(L) 4.30 - 5.70 10 6/uL 04/15/2021 9:37 AM [facility] Hemoglobin 13.0 12.0 - 17.6 g/dL 04/15/2021 9:37 AM [facility] Hematocrit 40.2 35.2 - 51.7 % 04/15/2021 9:37 AM [facility] MCV 97.8 80.7 - 98.3 fL 04/15/2021 9:37 AM [facility] MCH 31.6 26.7 - 34.0 pg 04/15/2021 9:37 AM [facility] MCHC 32.3 30.8 - 35.9 g/dL 04/15/2021 9:37 AM [facility] Platelet Count 478(H) 150 - 400 10 3/uL 04/15/2021 9:37 AM [facility] RDW-SD 47.6 36.0 - 50.0 fL 04/15/2021 9:37 AM [facility] RDW-CV 13.5 11.2 - 14.8 % 04/15/2021 9:37 AM [facility] MPV 9.7 9.4 - 12.9 fL 04/15/2021 9:37 AM [facility] nRBC Absolute 0.00 0 10 3/uL 04/15/2021 9:37 AM [facility] nRBC Auto 0.0 0 /100 WBC 04/15/2021 9:37 AM [facility] Blood BLOOD SPECIMEN / Unknown Lab Venipuncture / Unknown 04/15/2021 8:22 AM CDT 04/15/2021 9:25 AM CDT Laina Sanchez PA-C LAB - HEMATOLOGY ORD ERABLES [facility] [address] [place] [address], [facility] [phone] * (ABNORMAL) COMPREHENSIVE METABOLIC PANEL (04/15/2021 8:22 AM CDT) Only the most recent of10 resultswithin the time period is included. BUN 13 7 - 26 mg/dL 04/15/2021 [...] 11 8 - 18 04/15/2021 9:49 AM CDT [facility] BUN/Creatinine Ratio 16 7 - 23 04/15/2021 9:49 AM CDT [facility] Osmolality Calculated 290 270 - 300 mOsm/kg 04/15/2021 9:49 AM CDT [facility] Albumin/Globulin Ratio 0.5(L) 1.1 - 2.3 04/15/2021 9:49 AM CDT [facility] eGFR by CKD-EPI 84(L) >=90 mL/min/1.7 3 m2 04/15/2021 9:49 AM CDT [facility] Blood BLOOD SPECIMEN / Unknown Lab Venipuncture / Unknown 04/15/2021 8:22 AM CDT 04/15/2021 9:25 AM CDT Laina Sanchez PA-C LAB - CHEMISTRY LYUDMILA ZAMAN [facility] [address] [place] [address], [facility] [phone] * IR PICC LINE INSERT (04/14/2021 12:59 PM CDT) Anatomical Region Laterality Modality Chest, Upper Extremity X-Ray Ang iography 04/14/2021 1:20 PM CDT Impressions 04/14/2021 1:37 PM CDT Impression: Successful placement of a 5 Norwegian x 47 cm double-lumen power PICC via the left basilic vein under ultrasound and fluoroscopic guidance. Note: The catheter can be used now. IDr Mccarty, was present and performed/supervised the entire procedure. This report was approved by Romel Briseno on 04/14/2021 1:25 PM . IDr. DONNA have personally reviewed and interpreted this examination/study. This report was electronically signed by DONNA MCCARTY on 04/14/2021 1:37 PM . 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 The patient is required to use long-term IV antibiotics. Interventional radiology was consulted to place a PICC line. Operators: 1.Dr. Mccarty, Attending Physician 2.Dr. Romel Briseno, Resident Physician Anesthesia: Local - 5 ml of 1% lidocaine Procedures: 1.Limited extremity ultrasound to assess vascular patency. 2.Ultrasound-guided access of the right basilic vein. 3.Fluoroscopy-guided placement of a 5 Norwegian x 47 cm double-lumen peripherally inserted central catheter (PICC) through the right basilic vein. Fluoroscopy time: 1.4 minutes Procedure in detail: The procedure, risks, benefits, and alternatives were explained to the patient in detail, and informed consent was obtained. The patient was placed supine on the angiography table. The left arm was prepped and draped in the usual sterile manner. Limited ultrasound of the left basilic vein demonstrated a patent and compressible vein. A lehman scale image was documented. After administering 1% lidocaine for local anesthesia, the right basilic vein was accessed using a micropuncture needle. The needle entry was documented. A 0.018-inch guidewire was then advanced centrally. A small dermatotomy was made at the puncture site, and a peel-away sheath was advanced into the vein. The PICC was then introduced through the peel-away sheath and advanced to the right atrium under fluoroscopic guidance. A final fluoroscopic image confirmed proper position of the catheter tip at the superior cavoatrial junction. The catheter was secured with Stat-Lock. A sterile dressing was placed. The port(s) aspirated and flushed without difficulty. The patient tolerated the procedure well and was transferred to the holding area in stable condition. There were no immediate complications associated with the procedure. 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 The patient is required to use long-term IV antibiotics. Interventional radiology was consulted to place a PICC line. Operators: 1.Dr. Mccarty, Attending Physician 2.Dr. Romel Briseno, Resident Physician Anesthesia: Local - 5 ml of 1% lidocaine Procedures: 1.Limited extremity ultrasound to assess vascular patency. 2.Ultrasound-guided access of the right basilic vein. 3.Fluoroscopy-guided placement of a 5 Norwegian x 47 cm double-lumen peripherally inserted central catheter (PICC) through the right basilic vein. Fluoroscopy time: 1.4 minutes Procedure in detail: The procedure, risks, benefits, and alternatives were explained to the patient in detail, and informed consent was obtained. The patient was placed supine on the angiography table. The left arm was prepped and draped in the usual sterile manner. Limited ultrasound of the left basilic vein demonstrated a patent and compressible vein. A lehman scale image was documented. Afteradministering 1% lidocaine for local anesthesia, the right basilic vein was accessed using a micropuncture needle. The needle entry was documented. A 0.018-inch guidewire was then advanced centrally. A small dermatotomy was made at the puncture site, and a peel-away sheath was advanced into the vein. The PICC was then introduced through the peel-away sheath and advanced to the right atrium under fluoroscopic guidance. A final fluoroscopic image confirmed proper position of the catheter tip at the superior cavoatrial junction. The catheter was secured with Stat-Lock. A sterile dressing was placed. The port(s) aspirated and flushed without difficulty. The patient tolerated the procedure well and was transferred to the holding area in stable condition. There were no immediate complications associated with the procedure. Impression: Successful placement of a 5 Norwegian x 47 cm double-lumenpower PICC via the left basilic vein under ultrasound and fluoroscopicguidance. Note: The catheter can be used now. Dr Kiana Arnold, was present and performed/supervised the entire procedure. This report was approved by Romel Briseno on 04/14/2021 1:[address] DONNA Arnold have personally reviewed and interpreted this examination/study. This report was electronically signed by DONNA MCCARTY on 04/14/2021 1:37 PM . Laina Sanchez PA-C IR ORDERABLES * (ABNORMAL) BASIC METABOLIC PANEL (CALCIUM TOTAL) (04/14/2021 7:22 AM CDT) Only the most recent of6 resultswithin the time period is included. BUN 11 7 - 26 mg/dL 04/14/2021 8:19 AM [facility] Creatinine 0.75 0.71 - 1.16 mg/dL 04/14/2021 8:19 AM [facility] Sodium 140 136 - 145 mmol/L 04/14/2021 8:19 AM [facility] Potassium 3.8 3.5 - 4.5 mmol/L 04/14/2021 8:19 AM [facility] Chloride 108(H) 98 - 107 mmol/L 04/14/2021 8:19 AM [facility] CO2 26 22 - 29 mmol/L 04/14/2021 8:19 AM [facility] Glucose 90 70 - 115 mg/dL 04/14/2021 8:19 AM [facility] Calcium 8.7 8.4 - 10.2 mg/dL 04/14/2021 8:19 AM [facility] Anion Gap 10 8 - 18 04/14/2021 8:19 AM [facility] BUN/Creatinine Ratio 15 7 - 23 04/14/2021 8:19 AM [facility] Osmolality Calculated 289 270 - 300 mOsm/kg 04/14/2021 8:19 AM [facility] eGFR by CKD-EPI 87(L) >=90 mL/min/1.7 3 m2 04/14/2021 8:19 AM [facility] Blood BLOOD SPECIMEN / Unknown Lab Venipuncture / Unknown 04/14/2021 7:22 AM CDT 04/14/2021 7:56 AM T Laina Sanchez PA-C LAB - CHEMISTRY LYUDMILA ZAMAN [facility] [address] [place] [id number], [facility] [phone] * MAGNESIUM BLOOD (04/14/2021 7:22 AM CDT) Only the most recent of7 resultswithin the time period is included. Magnesium 2.0 1.6 - 2.6 mg/dL 04/14/2021 8:20 AM CDT [facility] Blood BLOOD SPECIMEN / Unknown Lab Venipuncture / Unknown 04/14/2021 7:22 AM CDT 04/14/2021 7:56 AM CDT Laina Sanchez PA-C LAB - CHEMISTRY LYUDMILA ZAMAN [facility] [address] [place] [address], [facility] [phone] * ENDOSCOPY, COLON, DIAGNOSTIC (04/13/2021 3:03 PM CDT) Report Endoscopy POC Endoscopy Department Report _ Patient Name: Rex Pires Procedure Date: 04/13/2021 3:03 PM Date of : 1940 Classification: Inpatient Gender: Male Ethnicity: Not or Race: White _ Providers: Herson Simmons MD, Hernán Painter (Fellow) Referring MD: Procedure: Colonoscopy Indications: Screening for colorectal malignant neoplasm, concern for GI malignancy due to hepatic abcess Medications: Monitored Anesthesia Care Description of Procedure: Pre-Anesthesia Assessment: - Prior to the procedure, a History and Physical was performed, and patient medications and allergies were reviewed. The patient is competent. The risks and benefits of the procedure and the sedation options and risks were discussed with the patient. All questions were answered and informed consent was obtained. Patient identification and proposed procedure were verified by the physician, the nurse, the anesthesiologist, the estate planning paralegal and the crane service technician in the endoscopy suite. Mental Status Examination: normal. Respiratory Examination: clear to auscultation. CV Examination: normal. Prophylactic Antibiotics: The patient does not require prophylactic antibiotics. Prior Anticoagulants: The patient has taken no previous anticoagulant or antiplatelet agents. ASA Grade Assessment: III - A patient with severe systemic disease. After reviewing the risks and benefits, the patient was deemed in satisfactory condition to undergo the procedure. The anesthesia plan was to use monitored anesthesia care (MAC). Immediately prior to administration of medications, the patient was re-assessed for adequacy to receive sedatives. The heart rate, respiratory rate, oxygen saturations, blood pressure, adequacy of pulmonary ventilation, and response to care were monitored throughout the procedure. The physical status of the patient was re-assessed after the procedure. After I obtained informed consent, the scope was passed under direct vision. Throughout the procedure, the patient's blood pressure, pulse, and oxygen saturations were monitored continuously. The [id number] was introduced through the anus and advanced to the cecum, identified by appendiceal orifice and ileocecal valve. The colonoscopy was performed without difficulty. The patient tolerated the procedure well. The quality of the bowel preparation was adequate. Findings: A 3 mm polyp was found in the rectum. The polyp was sessile. It was not removed. Many small and large-mouthed diverticula were found in the left colon. Internal hemorrhoids were found during retroflexion. The hemorrhoids were large. No mass or large poyps seen. Estimated Blood Loss: Estimated blood loss: none. Complications: No immediate complications. Impression: - One 3 mm polyp in the rectum. - Internal hemorrhoids. - Diverticulosis in the left colon. - No specimens collected. - No signs of lesions or mass concerning for colon cancer Recommendation: - Return patient to [facility] for ongoing care. - Resume previous diet - Other recs per inpatient liver team Attending Participation: I was present and participated during the entire procedure, including non-gottlieb portions. Procedure Code(s): --- Professional --- 66935, Colonoscopy, flexible; diagnostic, including collection of specimen(s) by brushing or washing, when performed (separate procedure) Diagnosis Code(s): --- Professional --- Z12.11, Encounter for screening for malignant neoplasm of colon K62.1, Rectal polyp K64.8, Other hemorrhoids K57.30, Diverticulosis of large intestine without perforation or abscess without bleeding CPT copyright 2019 [employer]. All rights reserved. The codes documented in this report are preliminary and upon elementary school teacher review may be revised to meet current compliance requirements. _ Herson Simmons MD 04/13/2021 3:54:30 PM Note Initiated On: 04/13/2021 3:03 PM Number of Addenda: [id number] [place] [address] PROVATION 04/13/2021 3:03 PM CDT Ivy Perez MD GI PROCEDURE ORDERA BLES Performing Organization Address [facility] Co de Phone Number [facility] * PT-INR [facility] (04/13/2021 7:55 AM CDT) Only the most recent of3 resultswithin the time period is included. PT 14.8 12.1 - 14.8 Seconds 04/13/2021 8:37 AM CDT [facility] INR 1.2 See Comment 04/13/2021 8:37 AM CDT [facility] Comment:The suggested therap eutic range for standard coumadin (warfarin) therapy is an INR of 2.0-3.0. For high-risk patients (Mechanical Mitral Valve Prosthesis, etc.), the suggested prophylactic therapeutic range is an INR of 2.5-3.5. Blood BLOOD SPECIMEN / Unknown Lab Venipuncture / Unknown 04/13/2021 7:55 AM CDT 04/13/2021 8:13 AM CDT Laina Sanchez PA-C LAB - COAGULATION OR DERABLES Performing Organization Address [facility]/ZIP Co de Phone Number [address] [address], [facility] [phone] * (ABNORMAL) RENAL FUNCTION PANEL (04/13/2021 7:55 AM CDT) BUN 14 7 - 26 mg/dL 04/13/2021 8:52 AM [facility] Creatinine 0.86 0.71 - 1.16 mg/dL 04/13/2021 8:52 AM [facility] Sodium 142 136 - 145 mmol/L 04/13/2021 8:52 AM [facility] Potassium 3.8 3.5 - 4.5 mmol/L 04/13/2021 8:52 AM [facility] Chloride 105 98 - 107 mmol/L 04/13/2021 8:52 AM [facility] CO2 20(L) 22 - 29 mmol/L 04/13/2021 8:52 AM [facility] Glucose 98 70 - 115 mg/dL 04/13/2021 8:52 AM [facility] Albumin 2.3(L) 3.4 - 5.0 g/dL 04/13/2021 8:52 AM [facility] Calcium 9.2 8.4 - 10.2 mg/dL 04/13/2021 8:52 AM [facility] Phosphorus 2.2(L) 2.8 - 5.1 mg/dL 04/13/2021 8:52 AM [facility] Anion Gap 21(H) 8 - 18 04/13/2021 8:52 AM [facility] BUN/Creatinine Ratio 16 7 - 23 04/13/2021 8:52 AM [facility] Osmolality Calculated 294 270 - 300 mOsm/kg 04/13/2021 8:52 AM [facility] eGFR by CKD-EPI 82(L) >=90 mL/min/1.7 3 m2 04/13/2021 8:52 AM [facility] Blood BLOOD SPECIMEN / Unknown Lab Venipuncture / Unknown 04/13/2021 7:55 AM T 04/13/2021 8:25 AM [facility] Laina Sanchez PA-C LAB - CHEMISTRY LYUDMILA ZAMAN [facility] [address] [place] [address], [facility] [phone] * (ABNORMAL) DIFFERENTIAL MANUAL (04/12/2021 7:35 AM [facility]) WBC (corrected for NRBC) 16.6 10 3/uL 04/12/2021 9:15 AM [facility] Total Cell Count 100 04/12/20 21 9:15 AM [facility] Neutrophils Absolute Manual 13.45(H) 1.60 - 7.00 10 3/uL 04/12/2021 9:15 AM [facility] Comment:(BANDS+SEGS) x WBC = NEUT # (ANC) Lymphocyte Absolute Manual 1.16 1.10 - 3.90 10 3/uL 04/12/2021 9:15 AM [facility] Monocytes Absolute Manual 1.33(H) 0.26 - 1.07 10 3/uL 04/12/2021 9:15 AM [facility] Eosinophils Absolute Manual 0.33 0.00 - 0.47 10 3/uL 04/12/2021 9:15 AM [facility] Neutrophil % Manual 81(H) 35 - 70 % 04/12/2021 9:15 AM [facility] Lymphocyte % Manual 7(L) 20 - 43 % 04/12/2021 9:15 AM [facility] Monocytes % Manual 8 5 - 13 % 04/12/2021 9:15 AM [facility] Eosinophils % Manual 2 0 - 6 % 04/12/2021 9:15 AM [facility] Metamyelocyte % Manual 1(H) 0 % 04/12/2021 9:15 AM [facility] Myelocytes % Manual 1(H) 0 % 04/12/2021 9:15 AM [facility] Platelet Estimate Increased (A) Adequate 04/12/2021 9:15 AM [facility] Anisocytosis Occasiona l(A) None 04/12/2021 9:15 AM [facility] Poikilocytes Occasiona l(A) None 04/12/2021 9:15 AM [facility] Blood BLOOD SPECIMEN / Unknown Lab Venipuncture / Unknown 04/12/2021 7:35 AM CDT 04/12/2021 8:18 AM CDT Laina Sanchez PA-C LAB - HEMATOLOGY ORD ERABLES [facility] [address] [place] [address], [facility] [phone] * (ABNORMAL) CBC W AUTO DIFFERENTIAL (04/12/2021 7:35 AM CDT) Only the most recent of11 resultswithin the time period is included. WBC 16.6(H) 3.5 - 10.5 10 3/uL 04/12/2021 8:33 AM CDT [facility] RBC 4.36 4.30 - 5.70 10 6/uL 04/12/2021 8:33 AM [facility] Hemoglobin 14.0 12.0 - 17.6 g/dL 04/12/2021 8:33 AM [facility] Hematocrit 41.9 35.2 - 51.7 % 04/12/2021 8:33 AM [facility] MCV 96.1 80.7 - 98.3 fL 04/12/2021 8:33 AM [facility] MCH 32.1 26.7 - 34.0 pg 04/12/2021 8:33 AM [facility] MCHC 33.4 30.8 - 35.9 g/dL 04/12/2021 8:33 AM [facility] Platelet Count 541(H) 150 - 400 10 3/uL 04/12/2021 8:33 AM [facility] RDW-SD 46.9 36.0 - 50.0 fL 04/12/2021 8:33 AM [facility] RDW-CV 13.2 11.2 - 14.8 % 04/12/2021 8:33 AM [facility] MPV 9.7 9.4 - 12.9 fL 04/12/2021 8:33 AM [facility] nRBC Absolute 0.00 0 10 3/uL 04/12/2021 8:33 AM [facility] nRBC Auto 0.0 0 /100 WBC 04/12/2021 8:33 AM CDT [facility] Blood BLOOD SPECIMEN / Unknown Lab Venipuncture / Unknown 04/12/2021 7:35 AM CDT 04/12/2021 8:18 AM CDT Laina Sanchez PA-C LAB - HEMATOLOGY ORD ERABLES Performing Organization Address City/[facility]/ZIP Co de Phone Number [address] [address], [facility] [phone] * LACTIC ACID BLOOD (04/11/2021 5:01 PM CDT) Only the most recent of3 resultswithin the time period is included. Lactic Acid-Stat 1.2 <=2.0 mmol/L 04/11/2021 5:23 PM CDT [facility] Blood BLOOD SPECIMEN / Unknown Venipuncture / Unknown 04/11/2021 5:01 PM CDT 04/11/2021 5:04 PM CDT Ivy Perez MD LAB - CHEMISTRY ORD ERABLES [address] [address], [facility] [phone] * MRI ABDOMEN W MRCP WWO CONT W3D (04/11/2021 8:27 AM CDT) Anatomical Region Laterality Modality Abdomen Magnetic Resonan ce 04/11/2021 8:25 AM CDT Impressions 04/11/2021 9:19 AM CDT IMPRESSION: 1.5.1 x 7.4 x 4.1 cm multiloculated abscess involving the hepatic segments IVb and 8. 2.No intrahepatic or extrahepatic bile duct dilatation. Dictated by Ancelmo Anne MD (vice president tax). I, Dr. SHELTON CORRALES M.D. have personally reviewed and interpreted this examination/study. This report was electronically signed by SHELTON CORRALES M.D. on 04/11/2021 9:19 AM . Narrative 04/11/2021 9:19 AM CDT EXAMINATION: 1. Magnetic resonance imaging (MRI) of the abdomen without and with contrast 2. Magnetic resonance cholangiopancreatography (MRCP) with 3-D reconstruction and analysis HISTORY: K75.0: Hepatic abscess TECHNIQUE: MRI of the abdomen was performed prior to and following the uneventful administration of 16 mL of Multihance intravenous gadolinium contrast according to standard protocol, including dynamic imaging for MRCP. Image data was analyzed on a dedicated 3-D workstation for the MRCP portion of the exam. COMPARISON: CT chest, abdomen and pelvis dated 04/05/2021 FINDINGS: MRI: There is metallic artifact in the right atrium from an atrial septal defect closure device (series 15, image 71). There are small bilateral pleural effusions with associated atelectasis in the lower lobes. There is a small hiatal hernia. There is no evidence of hepatic steatosis. There is a 5.1 x 7.4 x 4.1 cm multiloculated fluid rim-enhancing collection demonstrating restricted diffusion involving hepatic segments IVb and 8, consistent with an abscess. There is mild edema surrounding this abscess. A right upper quadrant drainage catheter terminates in the abscess. The hepatic arterial anatomy is conventional. The portal vein and its major branches are patent. The hepatic veins are patent. The gallbladder is normal without evidence of wall thickening, pericholecystic fluid, or gallstones. The pancreas has normal signal intensity. There is no peripancreatic fluid collection. No pancreatic mass is identified. There are few tiny cysts in both kidneys. There is a small hemorrhagic cyst at the upper pole of the left kidney. Otherwise, spleen, adrenal glands, and kidneys are normal. No free intraperitoneal fluid is identified. There are a few colonic diverticula. There are advanced degenerative changes involving the lower lumbar spine. MRCP: The intrahepatic and extrahepatic bile ducts are nondilated. No filling defect or stricture is seen in the biliary system. The pancreatic duct is nondilated. Procedure Note Shelton Corrales MD - 04/11/2021 EXAMINATION: 1. Magnetic resonance imaging (MRI) of the abdomen without and with contrast 2. Magnetic resonance cholangiopancreatography (MRCP) with 3-D reconstruction and analysis HISTORY: K75.0: Hepatic abscess TECHNIQUE: MRI of the abdomen was performed prior to and following the uneventful administration of 16 mL of Multihance intravenous gadolinium contrast according to standard protocol, including dynamic imaging for MRCP. Image data was analyzed on a dedicated 3-D workstation for theMRCP portion of the exam. COMPARISON: CT chest, abdomen and pelvis dated 04/05/2021 FINDINGS: MRI: There is metallic artifact in the right atrium from an atrial septal defect closure device (series 15, image 71). There are small bilateral pleural effusions with associated atelectasis in the lower lobes. Thereis a small hiatal hernia. There is no evidence of hepatic steatosis. There is a 5.1 x 7.4 x 4.1 cm multiloculated fluid rim-enhancing collection demonstrating restricted diffusion involving hepatic segments IVb and 8, consistent with an abscess. There is mild edema surrounding this abscess. A right upper quadrant drainage catheter terminates in the abscess. The hepatic arterial anatomy is conventional. The portal vein and its major branches are patent. The hepatic veins are patent. The gallbladder is normal without evidence of wall thickening, pericholecystic fluid, or gallstones. The pancreas has normal signal intensity. There is no peripancreatic fluid collection. No pancreaticmass is identified. There are few tiny cysts in both kidneys. There is a small hemorrhagic cyst at the upper pole of the left kidney. Otherwise, spleen, adrenal glands, and kidneys are normal. No free intraperitoneal fluid is identified. There are a few colonic diverticula. There are advanced degenerative changes involving the lower lumbar spine. MRCP: The intrahepatic and extrahepatic bile ducts are nondilated. No filling defect or stricture is seen in the biliary system. The pancreatic duct is nondilated. IMPRESSION: 1.5.1 x 7.4 x 4.1 cm multiloculated abscess involving the hepaticsegments IVb and 8. 2.No intrahepatic or extrahepatic bile duct dilatation. Dictated by Ancelmo Anne MD (vice president tax). I, Dr. SHELTON CORRALES M.D. have personally reviewed and interpreted this examination/study. This report was electronically signed by SHELTON CORRALES M.D. on04/11/2021 9:19 AM . Laina Sanchez PA-C MR ORDERABLES * CANCER ANTIGEN (CA) 19-9 (04/11/2021 6:44 AM CDT) CA 19-9 18 0 - 37 U/mL 04/12/2021 2:03 PM CDT [facility] [email or web address] ([facility]) Comment: INTERPRETIVE INFORMATION: Cancer Antigen-GI (CA 19-9) This test uses Dexter CA 19-9 electrochemiluminescent immunoassay. Results obtained with different test methods or kits cannot be used interchangeably. CA 19-9 value is useful in monitoring pancreatic, hepatobiliary, gastric, hepatocellular, and colorectal cancer. CA 19-9 value, regardless of level, should not be interpreted as absolute evidence of the presence or absence of malignant disease. Performed By: [facility] [address] [place] [address] Deep Sea Diver: Sarika Rivera MD Blood BLOOD SPECIMEN / Unknown Lab Venipuncture / Unknown 04/11/2021 6:44 AM CDT 04/11/2021 7:19 AM CDT Laina Sanchez PA-C LAB - CHEMISTRY LYUDMILA ZAMAN Performing Organization Address [facility] Co de Phone Number [facility] [email or web address] [facility]) [address] [place] [address] * ALPHA FETOPROTEIN BLOOD TUMOR MARKER (04/11/2021 6:44 AM CDT) Alpha-Fetoprote in Tumor Marker 2.2 <=8.3 ng/mL 04/11/2021 7:48 AM CDT [facility] Comment: AFP values will vary depending on testing procedure used. Results are not comparable across different methods. AFP values obtained by [facility] using an Carranza Alinity Immunoassay. Blood BLOOD SPECIMEN / Unknown Lab Venipuncture / Unknown 04/11/2021 6:44 AM CDT 04/11/2021 7:05 AM CDT Laina Sanchez PA-C LAB - CHEMISTRY LYUDMILA ZAMAN [facility] [address] [place] [address], [facility] [phone] * CEA BLOOD (04/11/2021 6:44 AM CDT) CEA <3.0 <=5.0 ng/mL 04/11/2021 7:48 AM CDT [facility] Comment:CEA values will vary depending on testing procedure used. Results are not comparable across different methods. CEA values obtained by [facility] using an Carranza Alinity immunoassay. Blood BLOOD SPECIMEN / Unknown Lab Venipuncture / Unknown 04/11/2021 6:44 AM CDT 04/11/2021 7:05 AM CDT Laina Sanchez PA-C LAB - CHEMISTRY LYUDMILA ZAMAN [facility] Organization Address City/State/ZIP Co de Phone Number [facility] [address] [place] [address], [facility] [phone] * VAS CAROTID DUPLEX BILATERAL (04/10/2021 9:24 AM CDT) Anatomical Region Laterality Modality Neck Intravascular Ul trasound 04/10/2021 9:13 AM CDT Narrative Procedure Note George Flowers MD - 04/11/2021 Laina Sanchez PA-C VASCULAR LAB ORDERAB LES * (ABNORMAL) HEPATIC FUNCTION PANEL (04/10/2021 8:03 AM CDT) Only the most recent of2 resultswithin the time period is included. Protein Total 6.2 6.0 - 8.3 g/dL 021 8:51 AM [facility] Albumin 2.0(L) 3.4 - 5.0 g/dL 04/10/2021 8:51 AM [facility] Bilirubin Total 0.9 0.2 - 1.2 mg/dL 03/16 8:51 AM [facility] Bilirubin Conjugated 0.5 0.1 - 0.5 mg/dL 04/10/2021 8:51 AM [facility] Bilirubin Unconjugated 0.4 Unconjugated Bilirubin is a calculated value: Reference ranges have not been established. mg/dL 04/10/2021 8:51 AM [facility] Alkaline Phosphatase 265(H) 40 - 150 U/L 04/10/2021 8:51 AM CDT [facility] ALT 71(H) 5 - 55 U/L 04/10/2021 8:51 AM CDT [facility] AST 64(H) 5 - 34 U/L 04/10/2021 8:51 AM CDT [facility] Albumin/Globulin Ratio 0.5(L) 1.1 - 2.3 04/10/2021 8:51 AM CDT [facility] Blood BLOOD SPECIMEN / Unknown Lab Venipuncture / Unknown 04/10/2021 8:03 AM CDT 04/10/2021 8:24 AM CDT Laina Sanchez PA-C LAB - CHEMISTRY LYUDMILA ZAMAN [address] [address], [facility] [phone] * PHOSPHORUS BLOOD (04/09/2021 4:20 PM CDT) Only the most recent of6 resultswithin the time period is included. Phosphorus 3.0 2.8 - 5.1 mg/dL 04/09/2021 5:20 PM CDT [facility] Blood BLOOD SPECIMEN / Unknown Lab Venipuncture / Unknown 04/09/2021 4:20 PM CDT 04/09/2021 4:53 PM CDT Laina Sanchez PA-C LAB - CHEMISTRY LYUDMILA ZAMAN [address] [address], [place] [phone] * (ABNORMAL) C-REACTIVE PROTEIN (04/07/2021 11:21 AM CDT) C-Reactive Protein 23.7(H) <=0.5 mg/dL 04/07/2021 1:01 PM CDT [facility] Blood BLOOD SPECIMEN / Unknown Lab Venipuncture / Unknown 04/07/2021 11:21 AM CDT 04/07/2021 11:49 AM CDT George Cortez [employer] LAB - CHEMISTRY ORDERABLES [facility] [address] [place] [address], [facility] [phone] * ENTAMOEBA HISTOLYTICA ANTIBODY (04/07/2021 11:21 AM CDT) Amoeba Antibody 3 <=8 U 12:04 AM CDT [facility] ([facility]) Comment: INTERPRETIVE INFORMATION: E. Histolytica (Amebiasis) Ab 8 U or less ............. Negative - No significant level of detectable E. histolytica IgG antibody. 9 - 11 U ................ Equivocal - Repeat testing in 10-14 days may be helpful. 12 U or greater ......... Positive - IgG antibody to E. histolytica detected, suggestive of a current or past infection. Seroconversion between acute and convalescent sera is considered strong evidence of recent infection. The best evidence for infection is a significant change on two appropriately timed specimens where both tests are done in the same laboratory at the same time. Performed By: [facility] [address] [place] [address] Deep Sea Diver: Sarika Rivera MD Blood BLOOD SPECIMEN / Unknown Lab Venipuncture / Unknown 04/07/2021 11:21 AM CDT 04/07/2021 11:49 AM CDT George Cortez APRN-[facility] LAB - CHEMISTRY ORDERABLES [facility] ([facility]) [address] [place], [place] [address] * HEMOGLOBIN A1C (04/07/2021 11:21 AM CDT) Only the most recent of2 resultswithin the time period is included. Hemoglobin A1c 6.3 4.4 - 6.3 % 04/07/2021 4:57 PM CDT [facility] Estimated Average Glucose 134 mg/dL 04/07/2021 4:57 PM CDT [facility] Comment: HbA1c Interpretation: Treatment target values recommended by ADA and other clinical organizations should be used to evaluate metabolic control in patients. Treatment Target Values: Normal : < 5.7% Pre-diabetes: 5.7-6.4% Diabetes: Equal to or greater than 6.5% Reference: [place] [employer] Standards of Care in Diabetes -2014 In patients 70 years and older consider HbA1c target range of 7.0-7.5% Reference: Diabetes Mellitus in Older People: Position Statement on behalf of the International Association of Gerontology and Geriatrics (IAGG), the Diabetes Working Republican for Older People (EDWPOP), and the International Task Force of Experts in Diabetes. Guero Barrera, et al. J [place] [employer]. 2012 Test results diagnostic of diabetes should be repeated for confirmation. The Sebia Capillary 2 assay for the measurement of HbA1c is a National Glycohemoglobin Standardization Program (NGSP)certified method. Blood BLOOD SPECIMEN / Unknown Lab Venipuncture / Unknown 04/07/2021 11:21 AM CDT 04/07/2021 11:49 AM CDT George Cortez APRNBELCH[facility] LAB - CHEMISTRY ORDERABLES [address] [address], [facility] [phone] * (ABNORMAL) ERYTHROCYTE SEDIMENTATION RATE (04/07/2021 11:21 AM CDT) Erythrocyte Sedimentation Rate Westergren 79(H) 0 - 20 MM/HR 04/07/2021 12:00 PM CDT [facility] Blood BLOOD SPECIMEN / Unknown Lab Venipuncture / Unknown 04/07/2021 11:21 AM CDT 04/07/2021 11:49 AM CDT George Cortez APRNB[facility] LAB - HEMATOLOGY ORDERABLES [address] [address], [facility] [phone] * (ABNORMAL) LIPID PROFILE (04/07/2021 11:21 AM CDT) Only the most recent of2 resultswithin the time period is included. Cholesterol Total 43 <200 mg/dL 04/07/2021 12:10 PM CDT [facility] HDL 13(L) >40 mg/dL 04/07/2021 12:10 PM T [facility] Comment: ATP III Classification of HDL Cholesterol: <40 mg/dL: Considered a major risk factor. >60 mg/dL: Considered a negative risk factor. LDL Calculated 18 <100 mg/dL 04/07/2021 12:10 PM T [facility] Comment: ATP III Classification of LDL Cholesterol: <100 mg/dL: Optimal 100 - 129 mg/dL: Near Optimal/Above Optimal 130 - 159 mg/dL: Borderline High 160 - 189 mg/dL: High >190 mg/dL: Very High Triglycerides 58 <150 mg/dL 04/07/2021 12:10 PM T [facility] Comment: ATP III Classification of Triglycerides: <150 mg/dL: Normal 150 - 199 mg/dL: Borderline High 200 - 400 mg/dL: High >500 mg/dL: Very High Blood BLOOD SPECIMEN / Unknown Lab Venipuncture / Unknown 04/07/2021 11:21 AM CDT 04/07/2021 11:46 AM CDT George J Cortez [employer] BLOCK[employer] LAB - CHEMISTRY ORDERABLES Performing Organization Address City/State/[facility] Co de Phone Number [facility] [address] [place] [id number], [facility] [phone] * MRI LUMBAR SPINE WWO CONTRAST (04/07/2021 4:55 AM CDT) Anatomical Region Laterality Modality Spine Magnetic Resonan ce 04/07/2021 1:19 PM CDT Impressions 04/07/2021 1:36 PM CDT IMPRESSION: 1.No MR evidence of osteomyelitis or discitis or epidural abscess in the lumbar spine. 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 3.Severe spinal canal stenosis at L3-4 and L4-5 and moderate spinal canal stenosis at L2-3. 4.Moderate to severe stenosis of left L3-4 neural foramen. This report was electronically signed by ALBA MIN on 04/07/2021 1:36 PM . Narrative 04/07/2021 1:36 PM CDT Contrast-enhanced MRI of the lumbar spine INDICATION: R50.9: Fever, unspecified fever cause D72.829: Leukocytosis, unspecified type M46.26: Osteomyelitis of vertebra, lumbar region TECHNIQUE: MRI of the lumbar spine was performed with and without intravenous contrast according to standard protocol. 8 mL of Gadavist was administered intravenously. COMPARISON: CT scan of the chest, abdomen and pelvis from 04/05/2021 was reviewed. FINDINGS: There is no MR evidence of osteomyelitis/discitis in the lumbar spine. Developmental shortening of the pedicles is seen resulting in diffusely small caliber of the lumbar spinal canal. There are severe degenerative changes in the lower lumbar spine. There is slight retrolisthesis of L2 relative to L3. There is degenerative remodeling of L3-L5 vertebral bodies. Individual disc level analysis is as follows: L1-2: No focal disc herniation. Facet degenerative changes. No spinal canal or foraminal stenosis. L2-3: Moderate circumferential disc bulge. Facet hypertrophy. Ligamentum flavum thickening. Moderate spinal canal stenosis. No foraminal stenosis. L3-4: Sclerotic bone marrow changes. Moderate loss of disc space height with fluid in the disc space. Disc bulge. Marked facet hypertrophy and ligamentum flavum thickening. Severe spinal canal stenosis. Mild right moderate to severe left foraminal stenosis. L4-5: Sclerotic bone marrow changes. Moderate loss of disc space height with fluid in the disc space. Disc bulge. Marked facet hypertrophy and ligamentum flavum thickening. Severe spinal canal stenosis. Moderate bilateral foraminal stenosis. L5-S1: Disc bulge. Facet hypertrophy and ligamentum flavum thickening. No spinal canal stenosis. No significant foraminal stenosis. There is tortuosity of the cauda equina due to severe spinal canal stenosis as described above. There is no epidural fluid or abnormal epidural enhancement. Paraspinal muscle and psoas muscle atrophy is noted. Procedure Note Alba Min MD - 04/07/2021 Contrast-enhanced MRI of the lumbar spine INDICATION: R50.9: Fever, unspecified fever cause D72.829: Leukocytosis, unspecified type M46.26: Osteomyelitis of vertebra, lumbar region TECHNIQUE: MRI of the lumbar spine was performed with and without intravenous contrast according to standard protocol. 8 mL of Gadavistwas administered intravenously. COMPARISON: CT scan of the chest, abdomen and pelvis from 04/05/2021 was reviewed. FINDINGS: There is no MR evidence of osteomyelitis/discitis in the lumbar spine. Developmental shortening of the pedicles is seen resulting in diffusely small caliber of the lumbar spinal canal. There are severe degenerative changes in the lower lumbar spine. There is slight retrolisthesis of L2 relative to L3. There is degenerative remodeling of L3-L5 vertebral bodies. Individual disc level analysis is as follows: L1-2: No focal disc herniation. Facet degenerative changes. No spinal canal or foraminal stenosis. L2-3: Moderate circumferential disc bulge. Facet hypertrophy. Ligamentum flavum thickening. Moderate spinal canal stenosis. No foraminalstenosis. L3-4: Sclerotic bone marrow changes. Moderate loss of disc space height with fluid in the disc space. Disc bulge. Marked facet hypertrophy and ligamentum flavum thickening. Severe spinal canal stenosis. Mild right moderate to severe left foraminal stenosis. L4-5: Sclerotic bone marrow changes. Moderate loss of disc space height with fluid in the disc space. Disc bulge. Marked facet hypertrophy and ligamentum flavum thickening. Severe spinal canal stenosis. Moderate bilateral foraminal stenosis. L5-S1: Disc bulge. Facet hypertrophy and ligamentum flavum thickening.No spinal canal stenosis. No significant foraminal stenosis. There is tortuosity of the cauda equina due to severe spinal canal stenosis as described above. There is no epidural fluid or abnormal epidural enhancement. Paraspinal muscle and psoas muscle atrophy isnoted. IMPRESSION: 1.No MR evidence of osteomyelitis or discitis or epidural abscess in the lumbar spine. 2.Developmental shortening of the pedicles with superimposeddegenerative changes resulting in diffuse spinal canal stenosis. 3.Severe spinal canal stenosis at L3-4 and L4-5 and moderate spinalcanal stenosis at L2-3. 4.Moderate to severe stenosis of left L3-4 neural foramen. This report was electronically signed by ALBA MIN on 04/07/2021 1:36PM . George Cortez APRN-SET OFF BLOCKER MR ORDERABLES * MRI THORACIC SPINE WWO CONT (04/07/2021 4:54 AM CDT) Anatomical Region Laterality Modality Spine Magnetic Resonan ce 04/07/2021 1:37 PM CDT Impressions 04/07/2021 1:43 PM CDT IMPRESSION: 1.No MR evidence of osteomyelitis/discitis in the thoracic spine. 2.Acute/subacute fracture of T8 vertebral body superior endplate. No retropulsion. This report was electronically signed by ALBA MIN on 04/07/2021 1:43 PM . Narrative 04/07/2021 1:43 PM CDT Contrast-enhanced MRI of the thoracic spine INDICATION: R50.9: Fever, unspecified fever cause D72.829: Leukocytosis, unspecified type M46.26: Osteomyelitis of vertebra, lumbar region TECHNIQUE: MRI of the thoracic spine was performed with and without intravenous contrast according to standard protocol. 8 mL of Gadavist was administered intravenously. COMPARISON: CT scan of the chest, abdomen and pelvis from 04/05/2021 was reviewed. FINDINGS: There is no MR evidence of osteomyelitis/discitis in the thoracic spine. There is an acute/subacute fracture in the superior endplate of T8 vertebral body with mild edema and enhancement. Mild height loss is noted without retropulsion or MR evidence of ligament injury. Remainder of the vertebrae are normal in height The thoracic spine curvature is maintained without subluxation. Osseous hemangiomas are seen in a few vertebrae without aggressive appearing marrow lesions. The spinal cord is normal in morphology and signal intensity without enhancement. The conus terminates at upper L1 and is unremarkable. There is no abnormal intraspinal enhancement. There is no epidural fluid collection. Mild degenerative changes are seen without spinal canal or foraminal stenosis. There is no significant soft tissue abnormality. Procedure Note Alba Min MD - 04/07/2021 Contrast-enhanced MRI of the thoracic spine INDICATION: R50.9: Fever, unspecified fever cause D72.829: Leukocytosis, unspecified type M46.26: Osteomyelitis of vertebra, lumbar region TECHNIQUE: MRI of the thoracic spine was performed with and without intravenous contrast according to standard protocol. 8 mL of Gadavistwas administered intravenously. COMPARISON: CT scan of the chest, abdomen and pelvis from 04/05/2021 was reviewed. FINDINGS: There is no MR evidence of osteomyelitis/discitis in the thoracic spine. There is an acute/subacute fracture in the superior endplate of T8 vertebral body with mild edema and enhancement. Mild height loss isnoted without retropulsion or MR evidence of ligament injury. Remainder of the vertebrae are normal in height The thoracic spine curvature is maintained without subluxation. Osseous hemangiomas are seen in a few vertebrae without aggressive appearing marrow lesions. The spinal cord is normal in morphology and signal intensity without enhancement. The conus terminates at upper L1 and is unremarkable. There is no abnormal intraspinal enhancement. There is no epidural fluid collection. Mild degenerative changes are seen without spinal canal or foraminal stenosis. There is no significant soft tissue abnormality. IMPRESSION: 1.No MR evidence of osteomyelitis/discitis in the thoracic spine. 2.Acute/subacute fracture of T8 vertebral body superior endplate. No retropulsion. This report was electronically signed by ALBA MIN on 04/07/2021 1:43PM . George Cortez APRN-SET OFF BLOCKER MR ORDERABLES * MRI CERVICAL SPINE WWO CONT (04/07/2021 4:54 AM CDT) Anatomical Region Laterality Modality Spine Magnetic Resonan ce 04/07/2021 1:42 PM CDT Impressions 04/07/2021 1:50 PM CDT IMPRESSION: 1.No MR evidence of osteomyelitis/discitis in the cervical spine. 2.Multilevel degenerative changes, most pronounced at C4-5 with 5 mm anterolisthesis of C4. Spinal cord compression with subtle cord signal abnormality at C4-5 disc level. Moderate bilateral foraminal stenosis at C4-5, left greater then right. This report was electronically signed by ALBA MIN on 04/07/2021 1:50 PM . Narrative 04/07/2021 1:50 PM CDT Contrast-enhanced MRI of the cervical spine INDICATION: R50.9: Fever, unspecified fever cause D72.829: Leukocytosis, unspecified type M46.26: Osteomyelitis of vertebra, lumbar region TECHNIQUE: MRI of the cervical spine was performed with and without intravenous contrast according to standard protocol. 8 mL of Gadavist was administered intravenously. COMPARISON: No prior similar studies available for review. FINDINGS: There is no MR evidence of osteomyelitis/discitis in the cervical spine. There is 5 mm anterolisthesis of C4 relative to C5, degenerative. Degenerative remodeling of multiple cervical vertebrae is noted without MR evidence of acute fracture. No aggressive appearing marrow lesions are noted. There is no epidural fluid or abnormal enhancement. There is spinal cord compression at C4-5 with focal subtle cord edema. Otherwise, the cervical spinal cord is unremarkable. 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 Multilevel degenerative changes are seen. Individual disc level analysis as follows: C2-3: No focal disc herniation. Severe left facet degenerative changes. No spinal canal stenosis. Mild left foraminal stenosis. C3-4: Disc ridge complex. Severe right facet hypertrophy. Ligamentum flavum thickening. Mild spinal canal stenosis. No cord compression. Moderate right foraminal stenosis. C4-5: 5 mm anterolisthesis of C4. Degenerative changes only endplates. Pronounced disc bulge with severe left and moderate right facet degenerative changes. Moderate spinal canal stenosis with spinal cord compression. Subtle cord edema. Moderate bilateral foraminal stenosis, left greater than right. C5-6: Moderate loss of disc space height. Endplate degenerative changes. Disc ridge complex. Bilateral facet degenerative changes. No spinal canal stenosis. Mild bilateral foraminal stenosis. C6-7: Moderate loss of disc space height. Endplate degenerative changes. Disc ridge complex. Bilateral facet degenerative changes. No spinal canal stenosis. Mild bilateral foraminal narrowing. C7-T1: No focal disc herniation. No spinal canal or foraminal stenosis. Facet degenerative changes, right greater than left. Procedure Note Alba Min MD - 04/07/2021 Contrast-enhanced MRI of the cervical spine INDICATION: R50.9: Fever, unspecified fever cause D72.829: Leukocytosis, unspecified type M46.26: Osteomyelitis of vertebra, lumbar region TECHNIQUE: MRI of the cervical spine was performed with and without intravenous contrast according to standard protocol. 8 mL of Gadavistwas administered intravenously. COMPARISON: No prior similar studies available for review. FINDINGS: There is no MR evidence of osteomyelitis/discitis in the cervical spine. There is 5 mm anterolisthesis of C4 relative to C5, degenerative. Degenerative remodeling of multiple cervical vertebrae is noted withoutMR evidence of acute fracture. No aggressive appearing marrow lesions are noted. There is no epidural fluid or abnormal enhancement. There isspinal cord compression at C4-5 with focal subtle cord edema. Otherwise, the cervical spinal cord is unremarkable. 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 Multilevel degenerative changes are seen. Individual disc level analysis as follows: C2-3: No focal disc herniation. Severe left facet degenerative changes.No spinal canal stenosis. Mild left foraminal stenosis. C3-4: Disc ridge complex. Severe right facet hypertrophy. Ligamentum flavum thickening. Mild spinal canal stenosis. No cord compression. Moderate right foraminal stenosis. C4-5: 5 mm anterolisthesis of C4. Degenerative changes only endplates. Pronounced disc bulge with severe left and moderate right facet degenerative changes. Moderate spinal canal stenosis with spinal cord compression. Subtle cord edema. Moderate bilateral foraminal stenosis, left greater than right. C5-6: Moderate loss of disc space height. Endplate degenerative changes. Disc ridge complex. Bilateral facet degenerative changes. No spinalcanal stenosis. Mild bilateral foraminal stenosis. C6-7: Moderate loss of disc space height. Endplate degenerative changes. Disc ridge complex. Bilateral facet degenerative changes. No spinalcanal stenosis. Mild bilateral foraminal narrowing. C7-T1: No focal disc herniation. No spinal canal or foraminal stenosis. Facet degenerative changes, right greater than left. IMPRESSION: 1.No MR evidence of osteomyelitis/discitis in the cervical spine. 2.Multilevel degenerative changes, most pronounced at C4-5 with 5 mm anterolisthesis of C4. Spinal cord compression with subtle cord signal abnormality at C4-5 disc level. Moderate bilateral foraminal stenosis at C4-5, left greater then right. This report was electronically signed by ALBA MIN on 04/07/2021 1:50PM . George Cortez [employer] MODEL-[employer] OFF BLOCKER MR ORDERABLES * XR KNEE RIGHT 2VW OR LESS (04/06/2021 6:34 PM CDT) Anatomical Region Laterality Modality Lower Extremity Radiographic Merna ging 04/07/2021 8:01 AM CDT Impressions 04/07/2021 11:43 AM CDT IMPRESSION: Total right knee arthroplasty in normal alignment. No evidence of infection. Dictated by Nicko Ruiz MD (vice president tax). I, Dr. DAYANA GUSTAFSON M.D. have personally reviewed and interpreted this examination/study. This report was electronically signed by DAYANA GUSTAFSON M.D. on 04/07/2021 11:43 AM . Narrative 04/07/2021 11:43 AM CDT EXAMINATION: XR KNEE RIGHT 2VW OR LESS HISTORY: R50.9: Fever, unspecified fever cause D72.829: Leukocytosis, unspecified type Z96.651: S/P total knee arthroplasty, right COMPARISON: No prior study is available for comparison at the time of this dictation. FINDINGS: There is a total right knee arthroplasty. The prosthesis appears intact. There is a 1.4 cm ossific fragment superimposing the posterior aspect of the knee joint on the lateral projection, likely a fabella. The anatomic alignment is normal. The knee joint space is preserved. No joint effusion is seen. Vascular calcifications are noted. Procedure Note Dayana Gustafson MD - 04/07/2021 EXAMINATION: XR KNEE RIGHT 2VW OR LESS HISTORY: R50.9: Fever, unspecified fever cause D72.829: Leukocytosis, unspecified type Z96.651: S/P total knee arthroplasty, right COMPARISON: No prior study is available for comparison at the time ofthis dictation. FINDINGS: There is a total right knee arthroplasty. The prosthesis appears intact. There is a 1.4 cm ossific fragment superimposing the posterior aspect of the knee joint on the lateral projection, likely a fabella. The anatomic alignment is normal. The knee joint space is preserved. No jointeffusion is seen. Vascular calcifications are noted. IMPRESSION: Total right knee arthroplasty in normal alignment. No evidence of infection. Dictated by Nicko Ruiz MD (vice president tax). I, Dr. DAYANA GUSTAFSON M.D. have personally reviewed and interpreted this examination/study. This report was electronically signed by DAYANA GUSTAFSON M.D. on 04/07/2021 11:43 AM . George Cortez [employer] MODEL-[employer] OFF BLOCKER DIAGNOSTIC IMAGI NG ORDERABLES * XR PANOREX (04/06/2021 5:34 PM CDT) Anatomical Region Laterality Modality Head Radiographic Merna ging 04/07/2021 7:45 AM CDT Impressions 04/07/2021 10:45 AM CDT IMPRESSION: No evidence of periapical abscess. Dictated by Fausto Murphy D.O. (vice president tax). Dr. DAYANA Arnold M.D. have personally reviewed and interpreted this examination/study. This report was electronically signed by DAYANA GUSTAFSON M.D. on 04/07/2021 10:45 AM . Narrative 04/07/2021 10:45 AM CDT EXAMINATION: Panorex HISTORY: D72.829: Leukocytosis, unspecified type R50.81: Fever in other diseases Evaluate for dental abscess COMPARISON: None. FINDINGS: Multiple dental restorations are identified, and a few teeth are absent. No acute mandibular fracture is identified. Both temporomandibular joints are intact. No periapical abscess is present. Procedure Note Dayana Gustafson MD - 04/07/2021 EXAMINATION: Panorex HISTORY: D72.829: Leukocytosis, unspecified type R50.81: Fever in other diseases Evaluate for dental abscess COMPARISON: None. FINDINGS: Multiple dental restorations are identified, and a few teeth are absent. No acute mandibular fracture is identified. Both temporomandibularjoints are intact. No periapical abscess is present. IMPRESSION: No evidence of periapical abscess. Dictated by Fausto Murphy D.O. (vice president tax). Dr. DAYANA Arnold M.D. have personally reviewed and interpreted this examination/study. This report was electronically signed by DAYANA GUSTAFSON M.D. on 04/07/2021 10:45 AM . George Smith Cortez [employer] MODEL-[employer] OFF BLOCKER DIAGNOSTIC IMAGI NG ORDERABLES * IR DRAIN W CATH PLACEMENT (04/06/2021 3:04 PM CDT) Anatomical Region Laterality Modality Abdomen X-Ray Angiograph y 04/06/2021 12:4 9 PM CDT Impressions 04/06/2021 3:20 PM CDT Impression: Ultrasound-guided placement of an 8.5 Norwegian pigtail drainage catheter in a left hepatic lobe abscess, as described above. Follow-up: The catheter is open for external drainage. Flush the catheter with 10 mL of saline three times a day. If the output falls below 5-10 mL/day for three consecutive days, please schedule the patient for an image-guided tube check for possible catheter exchange, repositioning, or removal. I, Dr. Willis, was present and performed/supervised the entire procedure. Moderate sedation on this patient was ordered by me, administered intravenously in my presence, and monitored by the procedure nurse as an independent trained observer who was present throughout the procedure. The following parameters were monitored: oxygen saturation, heart rate, blood pressure, and response to care. Intra-service sedation start time was 1439 and end time was 1504 during which I was present. Total physician intra-service sedation time was 25 minutes. For details on pre moderate sedation and post moderate sedation patient evaluation, please review the evaluation forms in [facility]. For details on monitored clinical parameters during the intra-service sedation time, please review the procedure nurse documentation in [facility]. This report was electronically signed by LA WILLIS M.D. on 04/06/2021 3:20 PM . Narrative 04/06/2021 3:20 PM CDT History: Large hepatic abscess centered in segment 4 Operators: 1.Dr. Willis, Attending Physician 2.Dr. Briseno, Resident Physician Anesthesia: 1.Local anesthesia - 10 mL of 1% lidocaine 2.Intravenous conscious sedation - Versed 2 mg and Fentanyl 100 mcg Procedure: 1.Limited ultrasound evaluation of the liver. 2.Ultrasound-guided placement of an 8.5 Norwegian pigtail drainage catheter in a left hepatic lobe abscess. Procedure in detail: The procedure, risks, and possible complications were explained to the patient in detail, and informed consent was obtained. The patient was placed in a supine position on the procedure table and a limited ultrasound evaluation of the liver was performed, demonstrating a large complex fluid collection in segment 4A. A percutaneous entry site was marked on the skin. The marked site and skin around the region of interest was prepped and draped in sterile fashion. A pre-procedure timeout was performed. Local anesthesia was provided with 1% Lidocaine. A 5 Norwegian coaxial needle system was advanced in stages under real time ultrasound guidance. Upon aspiration, the outer-sheath was advanced within the left hepatic lobe collection. A 0.035 wire was advanced through the sheath and following a series of dilatation/exchanges, an 8.5 Norwegian ReSolve pigtail drainage catheter was advanced within the collection. The initial aspirate was purulent, and approximately 90 mL of fluid were drained during the procedure. An appropriate amount of aspirate was sent for necessary laboratory work up. Catheter then connected to suction drain and sutured to skin with 2-0 prolene. Sterile dressing applied. Post-drainage limited ultrasound evaluation showed the catheter in satisfactory position. The patient tolerated the procedure well and was transferred to the inpatient floor in stable condition. There were no immediate complications associated with the procedure. Procedure Note La Willis MD - 04/06/2021 History: Large hepatic abscess centered in segment 4 Operators: 1.Dr. Willis, Attending Physician 2.Dr. Briseno, Resident Physician Anesthesia: 1.Local anesthesia - 10 mL of 1% lidocaine 2.Intravenous conscious sedation - Versed 2 mg and Fentanyl 100 mcg Procedure: 1.Limited ultrasound evaluation of the liver. 2.Ultrasound-guided placement of an 8.5 Norwegian pigtail drainage catheter in a left hepatic lobe abscess. Procedure in detail: The procedure, risks, and possible complications were explained to the patient in detail, and informed consent was obtained. The patient was placed in a supine position on the procedure table and a limited ultrasound evaluation of the liver was performed, demonstrating a large complex fluid collection in segment 4A. A percutaneous entry site was marked on the skin. The marked site and skin around the region ofinterest was prepped and draped in sterile fashion. A pre-procedure timeout was performed. Local anesthesia was provided with 1% Lidocaine. A 5 Norwegian coaxial needle system was advanced in stages under real time ultrasoundguidance. Upon aspiration, the outer-sheath was advanced within the left hepatic lobe collection. A 0.035 wire was advanced through the sheath and following a series of dilatation/exchanges, an 8.5 Norwegian ReSolvepigtail drainage catheter was advanced within the collection. The initialaspirate was purulent, and approximately 90 mL of fluid were drained during the procedure. An appropriate amount of aspirate was sent for necessary laboratory work up. Catheter then connected to suction drain and sutured to skin with 2-0 prolene. Sterile dressing applied. Post-drainage limited ultrasound evaluation showed the catheter in satisfactory position. The patient tolerated the procedure well and was transferred to the inpatient floor in stable condition. There were no immediatecomplications associated with the procedure. Impression: Ultrasound-guided placement of an 8.5 Norwegian pigtaildrainage catheter in a left hepatic lobe abscess, as described above. Follow-up: The catheter is open for external drainage. Flush thecatheter with 10 mL of saline three times a day. If the output falls below 5-10 mL/day for three consecutive days, please schedule the patient for an image-guided tube check for possible catheter exchange, repositioning,or removal. I, Dr. Willis, was present and performed/supervised the entire procedure. Moderate sedation on this patient was ordered by me, administered intravenously in my presence, and [facility] as an independent trained observer who was present throughout the procedure. The following parameters were monitored: oxygen saturation, heart rate, blood pressure, and response to care. Intra-service sedation start time was 1439 and end time was 1504 during which I was present. Total physician intra-service sedation time was 25 minutes. For detailson pre moderate sedation and post moderate sedation patient evaluation, please review the evaluation forms in [facility]. For details on monitored clinical parameters during the intra-service sedation time, pleasereview the procedure nurse documentation in [facility]. This report was electronically signed by LA WILLIS M.D. on 04/06/2021 3:20 PM . La Willis MD IR ORDERABLES * CULTURE FUNGUS OTHER+FUNGUS SMEAR (04/06/2021 2:50 PM CDT) Culture No fungus isolated YANET 05/01/2021 6:42 AM CDT [facility] Fungus Stain No yeast or hyphae seen 05/01/2021 6:42 AM CDT [facility] Microbiology ABDOMINAL ABSCESS / Unknown Collection / Unknown 04/06/2021 2:50 PM CDT 04/06/2021 3:00 PM CDT George Cortez [facility] [employer] [facility] - MICROBIOLO GY ORDERABLES [facility] [address] [place] [address], [facility] [phone] * CYTOLOGY NON-MATERIAL STOCKKEEPER YARD PANEL (STL) (04/06/2021 2:50 PM CDT) Case Report Medical Cytology Report Case: [id number] Authorizing Provider: George Cortez APRN-CNP Collected: 04/06/2021 02:50 PM Ordering Location: [facility] 8S ACUTE Received: 04/06/2021 03:31 PM Pathologist: Fina Delaney MD Specimen: Body Fluid , hepatic abscess 04/10/2021 3:27 PM CDT [facility] Specimen Adequacy Adequate cellularity for evaluation. 04/10/2021 3:27 PM CDT [facility] Final Diagnosis Liver, hepatic abscess, aspiration (A): - Benign - Necrotic material with neutrophils, compatible with abscess 04/10/2021 3:27 PM CDT [facility] Clinical History The patient is an 80-year-old male with hepatic abscess. 04/10/2021 3:27 PM CDT [facility] Gross Description 1 pap stained thinprep slide and 1 cell block from 70cc elizalde, thick fluid 04/10/2021 3:27 PM CDT [facility] Microscopic Description Microscopic examination substantiates the final diagnosis. 04/10/2021 3:27 PM CDT [facility] Disclaimer The performance characteristics of all immunohistochemical and indirect immunofluorescence stains (if any) cited in this report were determined by the Histopathology Laboratory of [facility]. Some of these tests rely on the use of analyte-specific reagents and are subject to specific labeling requirements by the US Food and Drug Administration. Such tests were developed by the Histology Laboratory of [facility] and have not been cleared or approved by the FDA. The FDA has determined that such clearance and approval is not necessary. These tests are used for clinical purposes and should not be regarded as investigational or for research. This laboratory is certified under the Clinical Laboratory Improvement Amendments (CLIA) as qualified to perform high complexity clinical laboratory testing. This case has been personally reviewed and interpreted by the attending (teaching) pathologist. 04/10/2021 3:27 PM CDT [facility] Embedded Images 04/10/2021 3:27 PM CDT [facility] Pathology/Cytolo gy BODY FLUID SPECIMEN / Unknown Collection / Unknown 04/06/2021 2:50 PM CDT 04/06/2021 3:31 PM CDT George Cortez [facility] - PATHOLOGY/ CYTOLOGY ORDERABLES Performing Organization Address [facility]/State/ZIP Co de Phone Number [facility] PATHOLOGY LAB [address] [place] [address], [facility] [phone] * CULTURE AFB+SMEAR (04/06/2021 2:50 PM CDT) Culture No acid-fast bacillus isolated 05/15/2021 8:54 AM CDT [facility] AFB Smear No acid-fast bacilli seen 05/15/2021 8:54 AM CDT [facility] Microbiology ABDOMINAL ABSCESS / Unknown Collection / Unknown 04/06/2021 2:50 PM CDT 04/06/2021 3:01 PM CDT George Cortez [facility] - MICROBIOLO GY ORDERABLES Performing Organization Address [facility]/ZIP Co de Phone Number [facility] [address] [place] [address], [facility] [phone] * (ABNORMAL) CULTURE ANAEROBE (04/06/2021 2:50 PM CDT) Culture Heavy Prevotella chinedu(A) YANET 04/12/2021 1:47 PM CDT [facility] Comment:Beta-lactamase posit pamela Microbiology ABDOMINAL ABSCESS / Unknown Collection / Unknown 04/06/2021 2:50 PM CDT 04/06/2021 3:01 PM CDT George Cortez [facility] LAB - MICROBIOLO GY ORDERABLES Performing Organization Address City/[facility]/ZIP Co de Phone Number [facility] [address] [place] [address], [facility] [phone] * (ABNORMAL) CULTURE FLUID+GRAM STAIN (04/06/2021 2:49 PM CDT) Culture Heavy Escherichia coli(AA) 04/10/2021 6:14 AM CDT [facility] Gram Stain No polymorphonuclear cells 04/10/2021 6:14 AM CDT [facility] Gram Stain No organisms seen 021 6:14 AM CDT [facility] Fluid BODY FLUID SPECIMEN / Unknown Collection / Unknown 04/06/2021 2:49 PM CDT 04/06/2021 3:01 PM CDT Narrative Organism Antibiotic Method Susceptibility Escherichia coli Amikacin YANET <=2 ug/mL: Susceptible Escherichia coli Ampicillin YANET 4 ug/mL: Susceptible Escherichia coli Ampicillin-sulbactam YANET <=2 ug/mL: Susceptible Escherichia coli Cefazolin YANET <=4 ug/mL: Susceptible Escherichia coli Cefepime YANET <=1 ug/mL: Susceptible Escherichia coli Ceftriaxone YANET <=1 ug/mL: Susceptible Escherichia coli Ciprofloxacin YANET <=0.25 ug/mL: Susceptible Escherichia coli Extended-Spectrum Beta-Lactamase YANET NEG ug/mL: Neg Escherichia coli Gentamicin YANET <=1 ug/mL: Susceptible Escherichia coli Meropenem YANET <=0.25 ug/mL: Susceptible Escherichia coli Piperacillin-tazobactam YANET <=4 ug/mL: Susceptible Escherichia coli Tobramycin YANET <=1 ug/mL: Susceptible Escherichia coli Trimethoprim-sulfame thox azole YANET <=20 ug/mL: Susceptible Comment: Automated methods are unable to differentiate between susceptible and intermediate results for cefazolin in Enterobacteriaceae from sources other than urine. Therefore, results are only reported when resistance is detected. If cefazolin susceptibility testing is needed but not reported, please call microbiology lab to request manual [phone]. George Cortez APRN-[facility] - MICROBIOLO GY ORDERABLES [facility] [address] [place], [place] [address], [facility] [phone] * CT CHEST ABDOMEN PELVIS W CONT (04/05/2021 9:56 AM CDT) Anatomical Region Laterality Modality Chest, Abdomen, Pelvis Computed Tomography 04/05/2021 10:1 0 AM CDT Impressions 04/05/2021 11:05 AM CDT Impression: 1.Large, multilobulated low-density hepatic lesion with peripheral enhancement surrounding reactive change, most suggestive of abscess. 2.Prominent diverticulum extends caudally off the sigmoid colon and abuts the urinary bladder. There is no urinary bladder wall thickening or bladder gas to suggest fistula. While there is no surrounding inflammatory change, there may be at least mild inflammation given the dominant nature of the diverticulum. 3.Nonspecific hazy inflammatory stranding in the lower right retroperitoneum. 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 Report drafted by Richard Shine (resident) I, Dr. ERIC MICHELE have personally reviewed and interpreted this examination/study. This report was electronically signed by ERIC MICHELE on 04/05/2021 11:05 AM . Narrative 04/05/2021 11:05 AM CDT Procedure Information DATE: 04/05/2021 9:57 AM EXAMINATION: Computed tomography (CT) of the chest, abdomen, and pelvis with contrast TECHNIQUE: CT of the chest, abdomen, and pelvis was performed after the uneventful administration of 100 mL of Isovue 370 intravenous contrast according to standard protocol. Clinical Information HISTORY: R53.1: Weakness R00.0: Tachycardia R50.9: Fever, unspecified fever cause D72.829: Leukocytosis, unspecified type COMPARISON: None. Findings Chest: Lines/Tubes: None. Lower neck and axillae: Normal. Mediastinum and Ava: No enlarged lymph nodes are present. Heart and Pericardium: The cardiac chambers are normal in size. No pericardial fluid or thickening is present. Lung Parenchyma, Airways, and Pleural Spaces: Mild bilateral lower lung zone atelectasis. No pulmonary parenchymal or airway process is present. There is no pleural effusion or pneumothorax. Abdomen/pelvis: Hepatobiliary: There is a large multilobulated hepatic lesion with low density center and peripheral enhancement 7.2 x 9.3 x 6.5 cm (TV x AP x CC) centimeters in segment 4A, which likely represents hepatic abscess. There is no evidence of portal vein thrombosis. The gallbladder wall is not thickened and there is no pericholecystic fluid. No radiopaque gallstones are visualized. Pancreas: Normal. Spleen: Normal. Kidneys: Normal. Mild perinephric fat stranding. There is no evidence of hydronephrosis or hydroureter. Adrenals: Slightly thickened nodular appearance of the left adrenal gland, nonspecific. The right adrenal gland is unremarkable. Retroperitoneum: There is a slight hazy fat stranding in the right lower retroperitoneum of unclear etiology (series 3 image 160). There is a small rounded fat density lesion in the right lower retroperitoneum (Se 3 Im 149). Peritoneum: There is no significant mesenteric lymphadenopathy or free fluid. Gastrointestinal: The stomach and visualized loops of bowel are unremarkable. Colonic diverticulosis is visualized with associated subtle inflammatory changes but no overt signs of diverticulitis. A dominant diverticulum, measuring approximately 3 cm in TV (best seen on series 5 image 50) is noted at sigmoid colon which abuts the superior bladder wall without evidence of wall thickening. No free air is seen within the urinary bladder. Appendix: Normal. Pelvic Structures: Normal. Vasculature: Scattered atherosclerotic vasculature changes. There is aneurysm of the right common iliac artery with partial thrombosis, measuring 2.2 cm series 3 image 145 Bones: Bilateral hip arthritis. Degenerative changes are noted in the spine, most prominent at L3-L4 and L4-L5. Soft tissues: Hazy fat stranding in the soft tissues of the left hip. There is mild bilateral iliopsoas bursitis. Procedure Note Eric Michele MD - 04/05/2021 Procedure Information DATE: 04/05/2021 9:57 AM EXAMINATION: Computed tomography (CT) of the chest, abdomen, and pelvis with contrast TECHNIQUE: CT of the chest, abdomen, and pelvis was performed after the uneventful administration of 100 mL of Isovue 370 intravenous contrast according to standard protocol. Clinical Information HISTORY: R53.1: Weakness R00.0: Tachycardia R50.9: Fever, unspecified fever cause D72.829: Leukocytosis, unspecified type COMPARISON: None. Findings Chest: Lines/Tubes: None. Lower neck and axillae: Normal. Mediastinum and Ava: No enlarged lymph nodes are present. Heart and Pericardium: The cardiac chambers are normal in size. No pericardial fluid or thickening is present. Lung Parenchyma, Airways, and Pleural Spaces: Mild bilateral lower lung zone atelectasis. No pulmonary parenchymal or airway process is present. There is no pleural effusion or pneumothorax. Abdomen/pelvis: Hepatobiliary: There is a large multilobulated hepatic lesion with low density centerand peripheral enhancement 7.2 x 9.3 x 6.5 cm (TV x AP x CC) centimeters in segment 4A, which likely represents hepatic abscess. There is noevidence of portal vein thrombosis. The gallbladder wall is not thickened andthere is no pericholecystic fluid. No radiopaque gallstones are visualized. Pancreas: Normal. Spleen: Normal. Kidneys: Normal. Mild perinephric fat stranding. There is no evidence of hydronephrosis or hydroureter. Adrenals: Slightly thickened nodular appearance of the left adrenal gland, nonspecific. The right adrenal gland is unremarkable. Retroperitoneum: There is a slight hazy fat stranding in the right lower retroperitoneumof unclear etiology (series 3 image 160). There is a small rounded fat density lesion in the right lower retroperitoneum (Se 3 Im 149). Peritoneum: There is no significant mesenteric lymphadenopathy or free fluid. Gastrointestinal: The stomach and visualized loops of bowel are unremarkable. Colonic diverticulosis is visualized with associated subtle inflammatory changes but no overt signs of diverticulitis. A dominant diverticulum, measuring approximately 3 cm in TV (best seen on series 5 image 50) is noted at sigmoid colon which abuts the superior bladder wall without evidence of wall thickening. No free air is seen within the urinary bladder. Appendix: Normal. Pelvic Structures: Normal. Vasculature: Scattered atherosclerotic vasculature changes. There is aneurysm of the right common iliac artery with partial thrombosis, measuring 2.2 cmseries 3 image 145 Bones: Bilateral hip arthritis. Degenerative changes are noted in the spine,most prominent at L3-L4 and L4-L5. Soft tissues: Hazy fat stranding in the soft tissues of the left hip. There is mild bilateral iliopsoas bursitis. Impression: 1.Large, multilobulated low-density hepatic lesion with peripheral enhancement surrounding reactive change, most suggestive of abscess. 2.Prominent diverticulum extends caudally off the sigmoid colon andabuts the urinary bladder. There is no urinary bladder wall thickening or bladder gas to suggest fistula. While there is no surroundinginflammatory change, there may be at least mild inflammation given the dominantnature of the diverticulum. 3.Nonspecific hazy inflammatory stranding in the lower right retroperitoneum. 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 Report drafted by Richard Shine (resident) I, Dr. ERIC MICHELE have personally reviewed and interpreted this examination/study. This report was electronically signed by ERIC MICHELE on 04/05/2021 11:05 AM . George Cortez [employer] CT ORDERABLES * URINE DRUG SCREEN IMMUNOASSAY (04/05/2021 4:17 AM CDT) [facility] Amphetamines Screen Urine Negative Negative: < 1000 ng/mL 04/05/2021 4:35 AM [facility] Barbiturates Screen Urine Negative Negative: < 200 ng/mL 04/05/2021 4:35 AM [facility] Benzodiazepine Screen Urine Negative Negative: < 200 ng/mL 04/05/2021 4:35 AM [facility] Opiates Urine Negative Negative: < 300 ng/mL 04/05/2021 4:35 AM [facility] Cocaine Metabolites Urine Negative Negative: < 300 ng/mL 04/05/2021 4:35 AM [facility] Phencyclidine Screen Urine Negative Negative: < 25 ng/ml 04/05/2021 4:35 AM [facility] Cannabinoids Screen Urine Negative Negative: <50 ng/mL 04/05/2021 4:35 AM [facility] Methadone Screen Urine Negative Negative: < 300 ng/mL 04/05/2021 4:35 AM [facility] Fentanyl Screen Urine Negative Negative: <1.0 ng/mL 04/05/2021 4:35 AM [facility] Urine URINE / Unknown Collection / Unknown 04/05/2021 4:17 AM CDT 04/05/2021 4:17 AM [facility] - 04/05/2021 4:35 AM CDT The Urine Toxicology Screening Panel does not screen for Propoxyphene, Meprobamate, Carisoprodol, Trazodone, fbcw-gre-mcpiejn medications and/or volatiles (Acetone, Isopropanol, Methanol or Ethylene Glycol). Ethanol, Salicylate, Acetaminophen, Tricyclic Antidepressants and several therapeutic drugs may be individually assayed in serum or plasma specimen. Toxicology testing by the [facility] is an aid to medical diagnosis and treatment of patients. No documented chain of custody was maintained. Results are intended to be used for clinical purposes only. Marita Howe MD LAB - URINE CHEMISTR Y ORDERABLES [facility] [address] [place] [id number], [facility] [phone] * Lumbar Puncture (04/04/2021 4:53 AM CDT) Narrative Ziggy Gonzalez MD - 04/04/2021 4:53 AM CDT Robert Lentz DO 04/04/2021 4:56 AM Lumbar Puncture Date/Time: 04/04/2021 4:53 AM Performed by: Robert Lentz DO Authorized by: Ziggy Gonzaelz MD Consent: Consent obtained: Verbal Consent given by: Patient and spouse Risks discussed: Bleeding, pain, nerve damage and headache Pre-procedure details: Procedure purpose: Diagnostic Preparation: Patient was prepped and draped in usual sterile fashion Anesthesia (see MAR for exact dosages): Anesthesia method: Local infiltration Local anesthetic: Lidocaine 1% WITH epi Procedure details: Lumbar space: L3-L4 interspace Patient position: L lateral decubitus Needle gauge: 20 Number of attempts: 5 or more Post-procedure: Puncture site: Adhesive bandage applied Comments: Lumbar puncture unsuccessful after multiple failed attempts Ziggy Gonzalez MD PROCEDURE/MINOR SURGICAL ORDERABLES * SARS-COV-2 (COVID-19) INTERNAL (04/04/2021 4:25 AM CDT) COVID-19 PCR Not detected Not detected 04/04/2021 2:09 PM CDT [facility] Microbiology SPECIMEN FROM NASOPHARYNGEAL STRUCTURE / Unknown Collection / Unknown 04/04/2021 4:25 AM CDT 04/04/2021 5:22 AM CDT Narrative [facility] - 04/04/2021 2:09 PM CDT This nucleic acid amplification assay performance was validated by [facility]. This test has been authorized by the Food and Drug administration (FDA)under an Emergency Use Authorization (EUA). This test has been validated in accordance with the FDA's guidance document Policy for Diagnostic Testing in Laboratories Certified to perform High Complexity Testing under CLIA prior to Emergency Use Authorization for Coronavirus Disease-2019 during the Public Health Emergency issued on September 12, 2019. FDA independent review of this validation is pending. This test is only authorized for the duration of time the declaration that circumstances exist justifying the authorization of emergency use of in vitro diagnostic tests for detection of SARS-CoV-2 virus and/or diagnosis of COVID-19 infection under section 564(b)(1) of the Act, 21 U.S.C 360bbb-3 (b)(1), unless the authorization is terminated or revoked sooner. Fact Sheets for this EUA assay are available upon request. Ziggy Gonzalez MD LAB - MICROBIOL OGY ORDERABLES [facility] [address] [place] [address], [facility] [phone] * (ABNORMAL) TROPONIN I (04/04/2021 3:01 AM CDT) Only the most recent of6 resultswithin the time period is included. Troponin I 0.074(H) <0.032 ng/mL 04/04/2021 3:30 AM CDT [facility] Blood BLOOD SPECIMEN / Unknown Venipuncture / Unknown 04/04/2021 3:01 AM CDT 04/04/2021 3:02 AM CDT Jerry Hill MD LAB - CHEMISTRY O RDERABLES [facility] [address] [place] [address], [facility] [phone] * MRI BRAIN WO CONTRAST (04/04/2021 1:23 AM CDT) Anatomical Region Laterality Modality Head Magnetic Resonan ce 04/04/2021 7:57 AM CDT Impressions 04/04/2021 11:15 AM CDT IMPRESSION: 1. No evidence of acute cerebral infarction. 2. 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 Dictated by Cristine Menjivar MD (vice president tax). I, Dr. JP SYED have personally reviewed and interpreted this examination/study. This report was electronically signed by JP SYED on 04/04/2021 11:15 AM . Narrative 04/04/2021 11:15 AM CDT EXAMINATION: MRI OF THE BRAIN WITHOUT CONTRAST HISTORY: R53.1: Weakness 80 year oldmalewho presents with aphasia and right sided weakness. TECHNIQUE: MRI of the brain was performed without contrast according to standard protocol. COMPARISON: CT brain stroke dated 04/03/2021 9:04 PM FINDINGS: No evidence of acute or chronic hemorrhage is identified. No evidence of acute cerebral infarction is seen. There are old small infarctions in bilateral cerebellar hemispheres and the right occipital lobe in the posterior circulation. There are multiple old lacunar infarctions in bilateral corpus striatum. There is mild cerebral volume loss with associated ex vacuo ventricular dilatation. No mass, edema, mass effect or midline shift is seen. Periventricular, subcortical, and pontine white matter FLAIR hyperintensities are present likely representing sequelae of chronic small vessel disease. The corpus callosum and sella appear normal. The posterior fossa, brainstem, and craniocervical junction appear normal. The orbital contents are normal and symmetric. The paranasal sinuses, and mastoids are clear. Normal flow voids are demonstrated in the carotid arteries and basilar artery. The calvarium and visualized cervical spine appear normal. Procedure Note Jp Syed MD - 04/04/2021 EXAMINATION: MRI OF THE BRAIN WITHOUT CONTRAST HISTORY: R53.1: Weakness 80 year oldmalewho presents with aphasia and right sided weakness. TECHNIQUE: MRI of the brain was performed without contrast according to standard protocol. COMPARISON: CT brain stroke dated 04/03/2021 9:04 PM FINDINGS: No evidence of acute or chronic hemorrhage is identified. No evidence of acute cerebral infarction is seen. There are old small infarctions in bilateral cerebellar hemispheres and the right occipital lobe in the posterior circulation. There are multiple old lacunar infarctions in bilateral corpus striatum. There is mild cerebral volume loss with associated ex vacuo ventricular dilatation. No mass, edema, mass effector midline shift is seen. Periventricular, subcortical, and pontine white matter FLAIR hyperintensities are present likely representing sequelae of chronicsmall vessel disease. The corpus callosum and sella appear normal. Theposterior fossa, brainstem, and craniocervical junction appear normal. The orbital contents are normal and symmetric. The paranasal sinuses,and mastoids are clear. Normal flow voids are demonstrated in the carotid arteries and basilar artery. The calvarium and visualized cervical spine appear normal. IMPRESSION: 1. No evidence of acute cerebral infarction. 2. Multiple old infarctions of bilateral cerebellar hemispheres andright occipital lobe in the territory of posterior circulation and also in bilateral basal ganglia. Dictated by Cristine Menjivar MD (vice president tax). I, Dr. JP SYED have personally reviewed and interpreted this examination/study. This report was electronically signed by JP SYED on 111:15 AM . Jerry Hill MD MR ORDERABLES * (ABNORMAL) URINALYSIS REFLEX TO MICROSCOPIC NO CULTURE (04/04/2021 12:51 AM CDT) Color UA Yellow Straw, Yellow 04/04/2021 1:19 AM [facility] Clarity UA Clear Clear 04/04/2021 1:19 AM [facility] Specific [place] UA 1.018 1.005 - 1.030 04/04/2021 1:19 AM [facility] pH UA 6.0 5.0 - 8.0 pH 04/04/2021 1:19 AM [facility] Protein UA Negative Negative 04/04/2021 1:19 AM [facility] Glucose UA Negative Negative 04/04/2021 1:19 AM [facility] Ketone UA Trace(A) Negative 04/04/2021 1:19 AM [facility] Bilirubin UA Negative Negative 04/04/2021 1:19 AM [facility] Blood UA Negative Negative 04/04/2021 1:19 AM [facility] Nitrite UA Negative Negative 04/04/2021 1:19 AM [facility] Leukocyte Esterase Negative Negative 04/04/2021 1:19 AM [facility] Urobilinogen UA Negative Negative mg/dL 04/04/2021 1:19 AM [facility] RBC UA 3-5 None Seen, 0-2, 3-5 /HPF 04/04/2021 1:19 AM CDT [facility] WBC UA 0-5 None Seen, 0-5 /HPF 04/04/2021 1:19 AM CDT [facility] Squamous Epithelial Cells UA None Seen None Seen, 0-2, 3-5 /HPF 04/04/2021 1:19 AM CDT [facility] Mucus UA 1+ /LPF 04/04/2021 1:19 AM CDT [facility] Urine URINE SPECIMEN OBTAINED BY CLEAN CATCH PROCEDURE / Unknown Collection / Unknown 04/04/2021 12:51 AM CDT 04/04/2021 1:02 AM CDT Narrative [facility] - 04/04/2021 1:19 AM CDT Jerry Hill MD LAB - URINALYSIS ORDERABLES [facility] [address] [place] [address], [facility] [phone] * XR ABDOMEN KUB PORTABLE (04/03/2021 11:24 PM CDT) Anatomical Region Laterality Modality Abdomen Radiographic Merna ging 04/03/2021 11:4 3 PM CDT Impressions 04/04/2021 9:14 AM CDT IMPRESSION: Nonspecific distention of multiple loops of large and small bowel. Report dictated by Shaun Mora DO (vice president tax). I, Dr. DONNA MCCARTY have personally reviewed and interpreted this examination/study. This report was electronically signed by DONNA MCCARTY on 04/04/2021 9:14 AM . Narrative 04/04/2021 9:14 AM CDT EXAMINATION: XR ABDOMEN KUB PORTABLE HISTORY: I63.9: Cerebrovascular accident (CVA), unspecified mechanism COMPARISON: No prior study is available for comparison. FINDINGS: Postsurgical changes consistent with mesh hernia repair. Nonspecific distention of multiple loops of large and small bowel. No pneumoperitoneum or pathological calcification is seen. Degenerative changes of the lower lumbar spine. Procedure Note Donna Mccarty MD - 04/04/2021 EXAMINATION: XR ABDOMEN KUB PORTABLE HISTORY: I63.9: Cerebrovascular accident (CVA), unspecified mechanism COMPARISON: No prior study is available for comparison. FINDINGS: Postsurgical changes consistent with mesh hernia repair. Nonspecific distention of multiple loops of large and small bowel. No pneumoperitoneum or pathological calcification is seen. Degenerative changes of the lower lumbar spine. IMPRESSION: Nonspecific distention of multiple loops of large and small bowel. Report dictated by Shaun Mora DO (vice president tax). I, Dr. DONNA MCCARTY have personally reviewed and interpreted this examination/study. This report was electronically signed by DONNA MCCARTY on 04/04/2021 9:14 AM . Jerry Hill MD DIAGNOSTIC IMAGIN G ORDERABLES * BLOOD TYPE VERIFICATION (04/03/2021 10:53 PM CDT) ABO Rh O POS 04/04/2021 12:07 AM CDT [facility] Blood Bank BLOOD SPECIMEN / Unknown Venipuncture / Unknown 04/03/2021 10:53 PM CDT 04/03/2021 11:01 PM CDT Jerry Hill MD LAB - BLOOD BANK ORDERABLES [facility] [address] [place] [id number], [place] [phone] * TYPE + SCREEN PANEL (04/03/2021 10:33 PM CDT) Antibody Screen NEG 11:33 PM CDT [facility] ABO Rh O POS 04/03/2021 11:33 PM CDT [facility] Blood Bank BLOOD SPECIMEN / Unknown Venipuncture / Unknown 04/03/2021 10:33 PM CDT 04/03/2021 10:51 PM CDT Jerry Hill MD LAB - BLOOD BANK ORDERABLES [facility] [place] [address], [place] [phone] * EKG 12-LEAD (04/03/2021 10:12 PM CDT) Only the most recent of2 resultswithin the time period is included. Ventricular Rate 121 BPM [facility] Atrial Rate 121 BPM [facility] P-R Interval 130 ms [facility] QRS Duration ms 82 ms [facility] Q-T Interval ms 314 ms [facility] QTC Calculation (Bezet) 445 ms [facility] Calculated P [place] 50 degrees [facility] Calculated R [place] 28 degrees [facility] Calculated T [place] 10 degrees [facility] Interpretation EKG SINUS TACHYCARDIA WITH PREMATURE SUPRAVENTRICULAR COMPLEXES INFERIOR INFARCT , AGE UNDETERMINED ABNORMAL ECG NO PREVIOUS ECGS AVAILABLE Confirmed by Marilyn RAMOS STEVEN ([id number]) on 04/04/2021 9:21:58 PM [facility] MUSE 04/03/2021 10:1 2 PM CDT 04/04/2021 9:21 PM CDT Jerry Hill MD ECG ORDERABLES [facility] M[facility] * XR CHEST 1VW PORTABLE (04/03/2021 10:08 PM CDT) Anatomical Region Laterality Modality Chest Radiographic Merna ging 04/03/2021 11:0 1 PM CDT Impressions 04/04/2021 9:28 AM CDT FINDINGS/IMPRESSION: Left basilar airspace opacities may represent atelectasis. There is no pleural effusion or pneumothorax. The cardiomediastinal silhouette is normal. Report dictated by Shaun Mora DO (vice president tax). I, Dr. DONNA MCCARTY have personally reviewed and interpreted this examination/study. This report was electronically signed by DONNA MCCARTY on 04/04/2021 9:28 AM . Narrative 04/04/2021 9:28 AM CDT EXAMINATION: XR CHEST 1VW PORTABLE, 04/03/2021 10:08 PM HISTORY: R05: Cough COMPARISON: No prior study is available for comparison. Procedure Note Donna Mccarty MD - 04/04/2021 EXAMINATION: XR CHEST 1VW PORTABLE, 04/03/2021 10:08 PM HISTORY: R05: Cough COMPARISON: No prior study is available for comparison. FINDINGS/IMPRESSION: Left basilar airspace opacities may represent atelectasis. There is no pleural effusion or pneumothorax. The cardiomediastinal silhouette is normal. Report dictated by Shaun Mora DO (vice president tax). I, Dr. DONNA MCCARTY have personally reviewed and interpreted this examination/study. This report was electronically signed by DONNA MCCARTY on 04/04/2021 9:28 AM . Jerry Hill MD DIAGNOSTIC IMAGIN G ORDERABLES * CULTURE BLOOD (04/03/2021 9:55 PM CDT) Only the most recent of4 resultswithin the time period is included. Pathologist [facility] Culture No growth day 5 YANET 04/09/2021 2:00 AM CDT [facility] MICROBIOLOGY Blood PERIPHERAL BLOOD / Unknown Venipuncture / Unknown 04/03/2021 9:55 PM CDT 04/03/2021 10:03 PM CDT Jerry Hill MD LAB - MICROBIOLOG Y ORDERABLES [facility] MICROBIOLOGY [address] [place] [address], [facility] [phone] * LACTIC ACID BLOOD REFLEX TO REPEAT (04/03/2021 9:54 PM CDT) Lactic Acid-Stat 1.7 <=2.0 mmol/L 04/03/2021 10:21 PM CDT [facility] Blood BLOOD SPECIMEN / Unknown Venipuncture / Unknown 04/03/2021 9:54 PM CDT 04/03/2021 10:02 PM CDT Jerry Hill MD LAB - CHEMISTRY O RDERABLES [facility] [address] [place] [address] [phone] * CT BRAIN - Stroke (04/03/2021 9:05 PM CDT) Anatomical Region Laterality Modality Head Computed Tomogra phy 04/03/2021 9:11 PM CDT Impressions 04/04/2021 10:11 AM CDT IMPRESSION: No acute intracranial abnormality. The preliminary findings were initially discussed by Dr. Hagan at 90 6:00 PM on 04/03/[address] Quiroz at 0906 hrs. Report dictated by Shaun Mora DO (vice president tax) I, Dr. ALBA MIN have personally reviewed and interpreted this examination/study. This report was electronically signed by ALBA MIN on 04/04/2021 10:11 AM . Narrative 04/04/2021 10:11 AM CDT EXAMINATION: Computed tomography (CT) of the head without contrast HISTORY: Code Stroke TECHNIQUE: CT of the head was performed without contrast according to standard protocol. COMPARISON: No prior study is available for comparison at the time of this dictation. FINDINGS: No acute intracranial hemorrhage is identified. Focal hypoattenuation in the left cerebellum measuring 8 mm is consistent with prior ischemic infarct (series 3, image 10). 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 There is moderate cerebral and mild cerebellar volume loss. Confluent chronic microvascular ischemic changes are seen. The basal cisterns are patent. No mass effect or midline shift is seen. The orbits and orbital contents are normal. The paranasal sinuses are clear. The mastoids are aerated. No significant osseous abnormality is noted. Procedure Note Alba Min MD - 04/04/2021 EXAMINATION: Computed tomography (CT) of the head without contrast HISTORY: Code Stroke TECHNIQUE: CT of the head was performed without contrast according to standard protocol. COMPARISON: No prior study is available for comparison at the time ofthis dictation. FINDINGS: No acute intracranial hemorrhage is identified. Focal hypoattenuation in the left cerebellum measuring 8 mm is consistent with prior ischemic infarct (series 3, image 10). 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 There is moderate cerebral and mild cerebellar volume loss. Confluent chronic microvascular ischemic changes are seen. The basal cisterns are patent. No mass effect or midline shift is seen. The orbits and orbital contents are normal. The paranasal sinuses are clear. The mastoids are aerated. No significant osseous abnormality is noted. IMPRESSION: No acute intracranial abnormality. The preliminary findings were initially discussed by Dr. Hagan at 90 6:00 PM on 04/03/[address] Quiroz at 0906 hrs. Report dictated by Shaun Mora DO (vice president tax) I, Dr. ALBA MIN have personally reviewed and interpreted this examination/study. This report was electronically signed by ALBA MIN on 04/04/2021 10:11 AM . Jerry Hill MD CT ORDERABLES * CARDIAC PROCEDURE ORDER (04/06/2020 3:12 PM CDT) Only the most recent of24 resultswithin the time period is included. Narrative 04/06/2020 3:12 PM CDT Ordered by an unspecified provider. Scanned Document CARDIAC SERVICES ORD ERABLES * EP LOOP RECORDER EXPLANT (03/25/2020 11:00 AM CDT) Narrative [facility] RADIOLOG[facility] - 03/25/2020 11:02 AM CDT This procedure was performed by a Cardiac Oxygen Furnace Operator in the EP lab. Please see the Op Note or Procedures Note placed by Electrophysiology. Betsy Capone MD ELECTROPHYS RADIANT [facility] RADI[facility] * AL ILR DEVICE INTERROGAT REMOTE, AL INTG DVC E R 30 D;REC TRANS & TR (03/14/2020 1:24 PM CDT) Narrative Nancy Whitt APRN-CNP - 03/14/2020 1:24 PM CDT Nancy Whitt APRN-TAISHA 03/14/2020 1:26 PM Rex Pires is undergoing detention monitoring with a Reveal implantable loop recorder for stroke surveillance. The remote transmission from 01/26/20 to 03/01/20 showed the following results: Baseline Strip: Sinus rhythm Episodes: None Evaluation of Episodes: No arrhythmia episodes were recorded during the monitored period. Please contact me if you have any questions or concerns, thank you. Nancy Whitt APRN-SET OFF BLOCKER PROCEDURE/SC NOR SURGICAL ORDERABLES * AL ILR DEVICE INTERROGAT REMOTE, AL INTG DVC E R 30 D;REC TRANS & TR (01/29/2020 3:12 PM CDT) Nancy Phillips APRN-CNP - 01/29/2020 3:12 PM CDT Nancy Whitt APRN-CNP 01/29/2020 3:13 PM Rex L Pranay is undergoing manager long term care monitoring with a Reveal implantable loop recorder for stroke surveillance. The remote transmission from 12/22/19 to 01/26/20 showed the following results: Baseline Strip: Sinus rhythm Episodes: None Evaluation of Episodes: No arrhythmia episodes were recorded during the monitored period. Please contact me if you have any questions or concerns, thank you. Nancy Whitt APRN-TAISHA PROCEDURE/SC NOR SURGICAL ORDERABLES * AL ILR DEVICE INTERROGAT REMOTE, AL INTG DVC E R 30 D;REC TRANS & TR (01/01/2020 2:36 PM CDT) Nancy Phillips APRN-CNP - 01/01/2020 2:36 PM CDT Nancy Whitt APRN-CNP 01/01/2020 2:38 PM Rex L Pranay is undergoing manager long term care monitoring with a Reveal implantable loop recorder for stroke surveillance. The remote transmission from 11/17/19 to 12/22/19 showed the following results: Baseline Strip: Sinus rhythm Episodes: None Evaluation of Episodes: No arrhythmia episodes were recorded during the monitored period. Please contact me if you have any questions or concerns, thank you. Nancy Whitt APRN-TAISHA PROCEDURE/SC NOR SURGICAL ORDERABLES * AL ILR DEVICE INTERROGAT REMOTE, AL INTG DVC E R 30 D;REC TRANS & TR (11/26/2019 1:49 PM CDT) Nancy Phillips APRN-CNP - 11/26/2019 1:49 PM CDT Nancy Whitt APRN-CNP 11/26/2019 1:50 PM Rex L Pranay is undergoing detention monitoring with a Reveal implantable loop recorder for stroke surveillance. The remote transmission from 10/13/19 to 11/17/19 showed the following results: Baseline Strip: Sinus rhythm, rate around 60 bpm Episodes: None Evaluation of Episodes: No arrhythmia episodes were recorded during the monitored period. Please contact me if you have any questions or concerns, thank you. Nancy Whitt FINE ARTS MODEL-SET OFF BLOCKER PROCEDURE/SC NOR SURGICAL ORDERABLES * AL TTE W/DOPPLER, COMPLETE (11/24/2019 2:37 PM CDT) Only the most recent of2 resultswithin the time period is included. Narrative Betsy Capone MD - 11/24/2019 2:37 PM CDT Betsy Capone MD 11/26/2019 10:15 AM [place] [id number] CARDIOLOGY 2-D & M-Mode Echocardiogram Report Color Flow Doppler Report Patients Name: Rex Pires : 1940 Age: [age] year old Gender: male Date of Test: 11/24/2019 Referring Physician: Betsy Capone MD [address] [facility] [address] [place] [address] Primary Care Physician: Eric Molina MD Introduction: Rex Pires is a 79 year old male presenting with hypertension. Indication: Hypertension Chamber Measurements LV Internal Dimension Systole (cm): 3.4 cm LV Internal Dimension Diastole (cm): 1.8 cm Septal Thickness (cm): 1.2 cm Aortic Root Measurement (cm): 2.5 cm Left Atrium Measurement (cm): 3.6 cm LVOT Diameter (cm): 2.1 cm Ejection Fraction 55% Color Flow and Doppler Waveform Analysis Aortic Velocities: AV Max (m/s): 2.1 m/s LVOT max (m/s): 1.1 m/s Mitral Velocities: E (m/s): 0.8 m/s A (m/s): 0.9 m/s Tricuspid Velocities: PulmonicVelocities: Max Pulmonic Valve Velocity (m/s): 1.1 m/s OVERALL INTERPRETATION: - Normal left ventricular size and systolic function. There is concentric remodeling of the left ventricle. Ejection fraction is estimated to be 55%. - Normal right ventricular size and systolic function. - Mildly calcified trileaflet aortic valve. No aortic regurgitation. No aortic stenosis. - Moderate mitral annular calcification. No mitral regurgitation. No mitral stenosis. - Mitral valve velocities demonstrate abnormal E/A ratio, consistent with stage 1 diastolic dysfunction. - Normal tricuspid valve structure and velocities. Mild tricuspid regurgitation. - Calculated right ventricular systolic pressure of < 35 mmHg, which is normal. - Normal pulmonary valve structure and velocities. No pulmonary insufficiency or stenosis. - Normal left and right atrial sizes. - Amplatzer device is well seated in atrial septum. Electronically signed by: Betsy Capone MD Date of Interpretation: 11/26/2019 Date of Final Report: 11/26/2019 Betsy Capone MD ECG ORDERABLES * AL ILR DEVICE INTERROGAT REMOTE, AL INTG DVC E R 30 D;REC TRANS & TR (10/16/2019 10:40 AM CDT) Narrative Nancy Whitt APRN-CNP - 10/16/2019 10:40 AM CDT Nancy Whitt APRN-CNP 10/16/2019 10:42 AM Rex Pires is undergoing manager long term care monitoring with a Reveal implantable loop recorder for stroke surveillance. The remote transmission from 09/08/19 to 10/13/19 showed the following results: Baseline Strip: Sinus rhythm, rate around 60 bpm Episodes: None Evaluation of Episodes: No arrhythmia episodes were recorded during the monitored period. Please contact me if you have any questions or concerns, thank you. Nancy COOK PROCEDURE/SC NOR SURGICAL ORDERABLES * AL ILR DEVICE INTERROGAT REMOTE, AL INTG DVC E R 30 D;REC TRANS & TR (09/22/2019 3:35 PM CDT) Narrative Nancy Whitt APRN-CNP - 09/22/2019 3:35 PM CDT Nancy Whitt APRN-CNP 09/22/2019 3:39 PM Rex Pires is undergoing manager long term care monitoring with a Reveal implantable loop recorder for stroke surveillance. The remote transmission from 08/04/19 to 09/08/19 showed the following results: Baseline Strip: Sinus rhythm, rate around 90 bpm Episodes: None Evaluation of Episodes: No arrhythmia episodes were recorded during the monitored period. Please contact me if you have any questions or concerns, thank you. Nancy Whitt APRN-SET OFF BLOCKER PROCEDURE/SC NOR SURGICAL ORDERABLES * AL ILR DEVICE INTERROGAT REMOTE, AL INTG DVC E R 30 D;REC TRANS & TR (08/17/2019 10:54 AM BISTRO ATTENDANT) Nancy Phillips APRN-CNP - 08/17/2019 10:54 AM BISTRO ATTENDANT Nancy Whitt APRN-CNP 08/17/2019 10:55 AM Rex Pires is undergoing manager long term care monitoring with a Reveal implantable loop recorder for stroke surveillance. The remote transmission from 06/30/19 to 08/04/19 showed the following results: Baseline Strip: Sinus bradycardia, rate around 50 bpm Episodes: None Evaluation of Episodes: No arrhythmia episodes were recorded during the monitored period. Please contact me if you have any questions or concerns, thank you. Nancy Whitt APRN-TAISHA PROCEDURE/SC NOR SURGICAL ORDERABLES * AL ILR DEVICE INTERROGAT REMOTE, AL ICM/ILR REMOTE TECH SERV (07/20/2019 11:30 AM BISTRO ATTENDANT) Nancy Phillips APRN-CNP - 07/20/2019 11:30 AM BISTRO ATTENDANT Nancy Whitt APRN-CNP 07/20/2019 11:32 AM Rexlyssa Pires is undergoing manager long term care monitoring with a Reveal implantable loop recorder for stroke surveillance. The remote transmission from 05/26/19 to 06/30/19 showed the following results: Baseline Strip: Sinus rhythm, rate around 70 bpm Episodes: None Evaluation of Episodes: No arrhythmia episodes were recorded during the monitored period. Please contact me if you have any questions or concerns, thank you. Nancy Whitt APRN-TAISHA PROCEDURE/SC NOR SURGICAL ORDERABLES * AL ILR DEVICE INTERROGAT REMOTE, AL ICM/ILR REMOTE TECH SERV (06/09/2019 10:37 AM BISTRO ATTENDANT) Nancy Phillips APRN-CNP - 06/09/2019 10:37 AM BISTRO ATTENDANT Nancy Whitt APRN-TAISHA 06/09/2019 10:39 AM Rex Ti Pires is undergoing detention monitoring with a Reveal implantable loop recorder for stroke surveillance. The remote transmission from 04/20/19 to 05/26/19 showed the following results: Baseline Strip: Sinus rhythm, rate around 60 bpm Episodes: None Evaluation of Episodes: No arrhythmia episodes were recorded during the monitored period. Please contact me if you have any questions or concerns, thank you. Nancy Whitt APRN-TAISHA PROCEDURE/SC NOR SURGICAL ORDERABLES * AL ILR DEVICE INTERROGAT REMOTE, AL ICM/ILR REMOTE TECH SERV (05/04/2019 11:16 AM CDT) Nancy Phillips APRN-CNP - 05/04/2019 11:16 AM CDT Nancy Whitt APRN-CNP 05/04/2019 11:17 AM Rex Pires is undergoing detention monitoring with a Reveal implantable loop recorder for stroke surveillance. The remote transmission from 03/16/19 to 04/20/19 showed the following results: Baseline Strip: Sinus rhythm, rate around 60 bpm Episodes: None Evaluation of Episodes: No arrhythmia episodes were recorded during the monitored period. Please contact me if you have any questions or concerns, thank you. Nancy COOK PROCEDURE/SC NOR SURGICAL ORDERABLES * AL ILR DEVICE INTERROGAT REMOTE, AL ICM/ILR REMOTE TECH SERV (03/23/2019 3:40 PM CDT) Nancy Phillips APRN-CNP - 03/23/2019 3:40 PM CDT Nancy Whitt APRN-CNP 03/23/2019 3:42 PM Rex L Pranay is undergoing manager long term care monitoring with a Reveal implantable loop recorder for stroke surveillance. The remote transmission from 02/09/19 to 03/16/19 showed the following results: Baseline Strip: Sinus rhythm, rate around 60 bpm Episodes: None Evaluation of Episodes: No arrhythmia episodes were recorded during the monitored period. Please contact me if you have any questions or concerns, thank you. Nancy COOK PROCEDURE/SC NOR SURGICAL ORDERABLES * AL ILR DEVICE INTERROGAT REMOTE, AL ICM/ILR REMOTE TECH SERV (02/16/2019 10:24 AM CDT) Nancy Phillips APRN-CNP - 02/16/2019 10:24 AM CDT Nancy Whitt APRN-CNP 02/16/2019 10:24 AM Rex L Pranay is undergoing manager long term care monitoring with a Reveal implantable loop recorder for stroke surveillance. The remote transmission from 01/05/19 to 02/09/19 showed the following results: Baseline Strip: Sinus bradycardia, rate around 55 bpm Episodes: None Evaluation of Episodes: No arrhythmia episodes were recorded during the monitored period. Please contact me if you have any questions or concerns, thank you. Nancy CURRYSET OFF BLOCKER PROCEDURE/SC NOR SURGICAL ORDERABLES * AL ILR DEVICE INTERROGAT REMOTE, AL ICM/ILR REMOTE TECH SERV (01/20/2019 4:32 PM CDT) Margarette Pastor MD - 01/20/2019 4:32 PM CDT Margarette Richard MD 01/20/2019 4:32 PM Rex Ti Pranay is undergoing remote monitoring for follow up of the patient's implantable loop recorder. Interrogation from December 01 to January 05, 2019 was performed with results as follows: Baseline Rhythm: sinus rhythm Episodes: none Impression: No events during the monitored period. Rex Ti Pranay will follow up with a remote check in 1 month. Thank you for allowing me to participate in the care of your patient. If you have any questions or concerns please do not hesitate to contact me. Margarette Richard MD Nancy Whitt APRN-TAISHA PROCEDURE/SC NOR SURGICAL ORDERABLES * AL ILR DEVICE INTERROGAT REMOTE, AL ICM/ILR REMOTE TECH SERV (12/11/2018 12:00 PM CDT) Margarette Pastor MD - 12/11/2018 12:00 PM CDT Margarette Richard MD 12/11/2018 12:00 PM Rex Pires is undergoing remote monitoring for follow up of the patient's implantable loop recorder. Interrogation from October 27 to December 01, 2018 was performed with results as follows: Baseline Rhythm: sinus rhythm Episodes: none Impression: No events during the monitored period. Rex Pires will follow up with a remote check in 1 month. Thank you for allowing me to participate in the care of your patient. If you have any questions or concerns please do not hesitate to contact me. Margarette Richard MD Nancy Whitt APRN-SET OFF BLOCKER PROCEDURE/SC NOR SURGICAL ORDERABLES * AL TTE W/DOPPLER, COMPLETE, AL PLACE NEEDLE IN VEIN (11/24/2018 3:53 PM CDT) Radha Bailey MD - 11/24/2018 3:53 PM CDT Radha Sanford MD 11/24/2018 3:53 PM [place] [address] CARDIOLOGY 2-D & M-Mode Echocardiogram Report Color Flow Doppler Report Patients Name: Rex Pires : 1940 Age: [age] year old Gender: male Date of Test: 11/19/2018 Referring Physician: Eric Estrada MD [address] [facility] [address] [place] [address] Primary Care Physician: Eric Molina MD Introduction: Rex Pires is a 78 year old male s/p ASD closure. Indication: ASD closure Saline bubble study performed Chamber Measurements LV Internal Dimension Systole (cm): 1.8 cm LV Internal Dimension Diastole (cm): 4.8 cm Septal Thickness (cm): 0.8 cm Aortic Root Measurement (cm): 3.2 cm Left Atrium Measurement (cm): 4.2 cm LVOT Diameter (cm): 2 cm Ejection Fraction 76% Color Flow and Doppler Waveform Analysis Aortic Velocities: AV Max (m/s): 1.9 m/s LVOT max (m/s): 1.3 m/s Mitral Velocities: E (m/s): 0.8 m/s A (m/s): 0.9 m/s Tricuspid Velocities: Max Tricuspid Valve Velocity (m/s): 0.3 m/s PulmonicVelocities: Max Pulmonic Valve Velocity (m/s): 1.2 m/s OVERALL INTERPRETATION: -Technically adequate study. - Rhythm is sinus. - Definity was infused for left ventricular opacification and endocardial edge detection. Definity images were satisfactory and diagnostic. - Normal left ventricular size and systolic function without regional wall motion abnormalities. Ejection fraction is estimated to be %. - Grade II diastolic dysfunction. - Normal right ventricular size and systolic function. - RVSP is not estimated due to lack of TR jet. IVC normal size with respiratory variation. - Left atrial size is mildly enlarged. Right atrial size is normal. Interatrial septum appears normal. - Agitated saline injection is negative for right to left shunt. - Moderately calcified trileaflet aortic valve structure and velocities. No aortic regurgitation. Aortic sclerosis without stenosis; Mean AV gradient is 8.5mmHg, and max velocity is 2.2m/s. - Mild mitral annular calcification. Trace mitral regurgitation. No mitral stenosis. - Normal tricuspid valve structure. Trace tricuspid regurgitation. - Normal pulmonary valve structure and velocities. Mild pulmonary insufficiency. - Normal pericardium. - Normal aortic root. Electronically signed by: Radha Sanford MD Date of Interpretation: 11/24/18 Date of Final Report: 11/24/18 Eric Estrada MD ECG ORDERABLES * AL ILR DEVICE INTERROGAT REMOTE, AL ICM/ILR REMOTE TECH SERV (11/11/2018 3:28 PM CDT) Margarette Pastor MD - 11/11/2018 3:28 PM CDT Margarette Richard MD 11/11/2018 3:28 PM Rex Pires is undergoing remote monitoring for follow up of the patient's implantable loop recorder. Interrogation from September 22 to October 27, 2018 was performed with results as follows: Underlying Rhythm: sinus bradycardia Events: none Impression: No events during the monitored period. Rex Pires will follow up with a remote check in 1 month. Thank you for allowing me to participate in the care of your patient. If you have any questions or concerns please do not hesitate to contact me. Margarette Richard MD Nancy Whitt APRN-TAISHA PROCEDURE/SC NOR SURGICAL ORDERABLES * AL ILR DEVICE INTERROGAT REMOTE, AL ICM/ILR REMOTE TECH SERV (10/14/2018 10:52 AM CDT) Nancy Phillips APRN-CNP - 10/14/2018 10:52 AM CDT Nancy Whitt APRN-TAISHA 10/14/2018 10:52 AM Rex Pires is undergoing detention monitoring with a Reveal implantable loop recorder for stroke surveillance. The remote transmission from 08/18/18 to 09/22/18 showed the following results: Baseline Strip: Sinus bradycardia, rate around 55 bpm Episodes Total: 0, Symptomatic Episodes: 0 Evaluation of Episodes: No arrhythmia episodes were recorded during the monitored period. Please contact me if you have any questions or concerns, thank you. Nancy Whitt APRN-SET OFF BLOCKER PROCEDURE/SC NOR SURGICAL ORDERABLES * AL ILR DEVICE INTERROGAT REMOTE, AL ICM/ILR REMOTE TECH SERV (09/09/2018 8:35 PM BISTRO ATTENDANT) Nancy Phillips APRN-CNP - 09/09/2018 8:35 PM BISTRO ATTENDANT Nancy Whitt APRN-CNP 09/09/2018 8:35 PM Rex Luke Pranay is undergoing detention monitoring with a Reveal implantable loop recorder for stroke surveillance. The remote transmission from 07/14/18 to 08/18/18 showed the following results: Baseline Strip: Sinus bradycardia, rate around 55 bpm Episodes Total: 0, Symptomatic Episodes: 0 Evaluation of Episodes: No arrhythmia episodes were recorded during the monitored period. Please contact me if you have any questions or concerns, thank you. Nancy Whitt APRNTAISHA PROCEDURE/SC NOR SURGICAL ORDERABLES * AL ILR DEVICE INTERROGAT REMOTE, AL ICM/ILR REMOTE TECH SERV (08/03/2018 2:01 PM BISTRO ATTENDANT) Nancy Phillips APRN-CNP - 08/03/2018 2:01 PM Nancy Cormier APRN-CNP 08/03/2018 2:01 PM Rex Luke Pranay is undergoing detention monitoring with a Reveal implantable loop recorder for stroke surveillance. The remote transmission from 06/05/18 to 07/14/18 showed the following results: Baseline Strip: Sinus rhythm, rate around 85 bpm Episodes Total: 11 AF, Symptomatic Episodes: 0 Evaluation of Episodes: All available ECG strips were reviewed. AF episodes showed sinus rhythm with PACs. No atrial fibrillation was seen. Please contact me if you have any questions or concerns, thank you. Nancy Whitt [facility] Cardiology Nurse Practitioner Nancy Whitt APRNTAISHA PROCEDURE/SC NOR SURGICAL ORDERABLES * AL ILR DEVICE INTERROGAT REMOTE, AL ICM/ILR REMOTE TECH SERV (07/01/2018 3:54 PM BISTRO ATTENDANT) Long Landin, ROLLY - 07/01/2018 3:54 PM BISTRO ATTENDANT Nancy Whitt, RN 07/01/2018 3:54 PM Rex Henryth is undergoing manager long term care monitoring with a Reveal implantable loop recorder for stroke surveillance. The remote transmission from 05/05/18 to 06/05/18 showed the following results: Baseline Strip: Sinus rhythm, rate around 90 bpm Episodes Total: 3 AF, Symptomatic Episodes: 0 Evaluation of Episodes: All available ECG strips were reviewed. AF episodes showed sinus rhythm with PACs. No atrial fibrillation seen. Please contact me if you have any questions or concerns, thank you. Long Anderson CD PROCEDURE/MINOR SURG ICAL ORDERABLES * CT ANGIO PELVIS (05/25/2018 9:33 PM BISTRO ATTENDANT) Anatomical Region Laterality Modality Pelvis Computed Tomogra phy 05/25/2018 9:48 PM BISTRO ATTENDANT Impressions 05/26/2018 8:55 AM BISTRO ATTENDANT IMPRESSION: 1. No evidence of pseudoaneurysm. Mild soft tissue fat stranding in the right groin. 2. Diverticulosis with short segment wall thickening in the mid sigmoid colon. A prominent diverticulum in this region extends caudally to contact the urinary bladder with suggestion of adhesion in this region. This may represent sequela of prior diverticulitis, though recommend correlation with colonoscopy to exclude malignancy. Incidental finding involving the sigmoid colon was discussed with Racheal Romo by Dr. Ritchie at 8:50 AM on 05/26/2018 Dictated by Wilmer Boone MD (vice president tax). I, Dr. MARIE RITCHIE M.D. have personally reviewed and interpreted this examination/study. This report was electronically signed by MARIE RITCHIE M.D. on 05/26/2018 8:55 AM . Narrative 05/26/2018 8:55 AM BISTRO ATTENDANT EXAMINATION: Computed tomography (CT) of the pelvis without contrast HISTORY: Right groin stick TECHNIQUE: CT of the pelvis was performed without contrast according to standard protocol. COMPARISON: No prior study is available for comparison. FINDINGS: There is mild soft tissue fat stranding in the right groin anterior to the superficial femoral vein consistent with recent venous puncture. No pseudoaneurysm is identified. There is colonic diverticulosis. Mild large bowel wall thickening within the mid sigmoid colon is noted. There is a prominent diverticulum extending caudally to contact the dome of the urinary bladder. Several regional small lymph nodes and prominent draining veins are noted. Otherwise the visible portions of the small bowel and large bowel are normal in caliber without evidence of wall thickening or obstruction. The urinary bladder is distended with fluid and appears normal. The prostate contains calcifications and is mildly enlarged. No free fluid is seen within the pelvis. There is no pelvic lymphadenopathy. The osseous structures are intact. Degenerative changes are present at the hips. Mesh material is seen along the anterior abdominal wall. Procedure Note Marie Ritchie MD - 05/26/2018 EXAMINATION: Computed tomography (CT) of the pelvis without contrast HISTORY: Right groin stick TECHNIQUE: CT of the pelvis was performed without contrast according to standard protocol. COMPARISON: No prior study is available for comparison. FINDINGS: There is mild soft tissue fat stranding in the right groin anterior tothe superficial femoral vein consistent with recent venous puncture. No pseudoaneurysm is identified. There is colonic diverticulosis. Mildlarge bowel wall thickening within the mid sigmoid colon is noted. There is a prominent diverticulum extending caudally to contact the dome of the urinary bladder. Several regional small lymph nodes and prominentdraining veins are noted. Otherwise the visible portions of the small bowel and large bowel are normal in caliber without evidence of wall thickening or obstruction. The urinary bladder is distended with fluid and appears normal. The prostate contains calcifications and is mildly enlarged. No free fluid is seen within the pelvis. There is no pelviclymphadenopathy. The osseous structures are intact. Degenerative changes are present atthe hips. Mesh material is seen along the anterior abdominal wall. IMPRESSION: 1. No evidence of pseudoaneurysm. Mild soft tissue fat stranding in the right groin. 2. Diverticulosis with short segment wall thickening in the mid sigmoid colon. A prominent diverticulum in this region extends caudally tocontact the urinary bladder with suggestion of adhesion in this region. This may represent sequela of prior diverticulitis, though recommend correlation with colonoscopy to exclude malignancy. Incidental finding involving the sigmoid colon was discussed with Racheal Romo by Dr. Ritchie at 8:50 AM on 05/26/2018 Dictated by Wilmer Boone MD (vice president tax). I, Dr. MARIE RITCHIE M.D. have personally reviewed and interpretedthis examination/study. This report was electronically signed by MARIE RITCHIE M.D. on 05/26/2018 8:55 AM . William Bryant MD CT ORDERABLES * LAB RESULTS ORDER (05/19/2018 3:21 PM BISTRO ATTENDANT) Narrative 05/19/2018 3:21 PM BISTRO ATTENDANT Ordered by an unspecified provider. Scanned Document LAB - THERAPEUTIC DR ORR MONITORING ORDERABLES * ECHO LIMITED OR FOLLOWUP (05/14/2018 8:58 AM CDT) Anatomical Region Laterality Modality Color Flow Doppl er 05/14/2018 8:34 AM CDT Narrative Procedure Note Radha Sanford MD - 05/14/2018 Adryan Puckett MD ECHOCARDIOGRAPHY RAD IANT * CCL PFO CLOSURE (05/13/2018 1:22 PM CDT) Anatomical Region Laterality Modality X-Ray Angiograph y Narrative 05/14/2018 8:17 AM CDT [facility] Cardiac Catheterization Procedure Note Patient: Rex Pires Age: 78 y.o. Date of Admission: 05/23/2017 Procedure Date: 05/23/17 FELLOW / PODOPEDIATRICIAN: None ATTENDING PHYSICIAN: Sean HISTORY: 78 yr old man with multiple TIA / Stroke like episodes. Found to have a PFO by bubble study. Discussed benefits of closure during an outpatient visit and wanted to move forward with the procedure ACCESS SITE(S): right femoral vein (x2 with 8 Fr sheaths) PROCEDURAL OVERVIEW: After obtaining informed consent and positioning the patient on the catheterization table, a timeout was performed to confirm the patient s name, date of , and procedure. Sedation was initiated and the patient was prepped and draped using standard sterile technique. Lidocaine was used for local anesthesia over the access site, after which the vessel was accessed and a sheath was placed using the modified Seldinger technique. Access was uncomplicated. The 8 Fr ICE catheter was then positioned inside the RA and views of the atrial septum confirmed the presence of a PFO. A 6 Fr MP catheter was then advanced to the right atrium over a 0.035 J-tipped guidewire and right atrial pressure was recorded. The MP catheter was then manipulated in an attempt to cross the PFO, but (by ICE guidance) it kept getting deflected by a prominent eustachian network just above the tricuspid valve apparatus. Therefore, an 0.032 J-tipped wire was placed in the SVC and the MP catheter and sheath were removed. A trans-septal sheath was then placed and directed into the fossa. A transeptal needle was then added for support (but the needle was never advanced beyond the tip of the dilator) and directed under ICE guidance across the septal defect and into the left atrium. Unfractionated heparin was then administered. An 18 mm Cribiform ASD closure device and an 8 Fr delivery sheath were then prepped. A 260 cmJ-tipped Amplatz stiffed wire was then placed through the and into the pulmonary vein. The catheter was removed, then the 8 Fr delivery system advanced into the left atrium. The wire was then removed. The closure device then inserted and the left atrial disc was exposed, then the device was pulled back against the atrial septum and the right atrial disc was exposed. ICE images, including color Doppler, were obtained to confirm that there was tissue in-between the discs and no residual shunts were detectable. A bubble study was also performed through the delivery sheath with no visible bubbles seen in the left atrium. At this point, the device was released. ICE images continued to confirm that complete closure was achieved. The sheath and ICEcatheter were then removed. At the conclusion of the procedure, hemostasis was achieved using manual compression after removal of all catheters, wires, and sheaths. COMPLICATIONS: none RECOMMENDATIONS AFTER DIAGNOSTIC CATHETERIZATION: 1. Admit for observation overnight 2. ASA 81 mg and 75 mg Plavix QD x 6 months 3. Limited echo in AM 4. ABX prophylaxis for dental cleaning or any other procedures x 6 months 5. F/U with Dr Estrada in 1 month with Echo (including bubble study) Eric Estrada MD 05/23/2017 Eric Estrada MD CARDIAC [employer] APPLIANCE TECH RAD IANT * AL ILR DEVICE INTERROGAT REMOTE, AL ICM/ILR REMOTE TECH SERV (05/13/2018 8:37 AM CDT) Doretha Hudson APRN-CNP - 05/13/2018 8:37 AM CDT Doretha Romero APRN-CNP 05/13/2018 8:37 AM Rex Ti MeyersPranay is undergoing manager long term care monitoring with a Reveal implantable loop recorder for stroke surveillance. The remote transmission from 04-01-18 to 05-05-18 showed the following results: Baseline Strip: Sinus rhythm, rate around 68 bpm Episodes Total: 0 afib, Symptomatic Episodes: 0 Evaluation of Episodes: No episodes were recorded during the monitored period. Please contact me if you have any questions or concerns, thank you. MONO Garcia Cardiology Nurse Practitioner Doretha Romero APRN-SET OFF BLOCKER PROCEDURE/OLIVERIO R SURGICAL ORDERABLES * AL ILR DEVICE INTERROGAT REMOTE, AL ICM/ILR REMOTE TECH SERV (04/03/2018 4:19 PM CDT) Doretha Hudson APRN-CNP - 04/03/2018 4:19 PM CDT Doretha Romero APRN-CNP 04/03/2018 4:19 PM Rexlyssa Pires is undergoing detention monitoring with a Reveal implantable loop recorder for stroke surveillance. The remote transmission from 02-25-18 to 03-31-18 showed the following results: Baseline Strip: Sinus rhythm, rate around 91 bpm Episodes Total: 0 afib, Symptomatic Episodes: 0 Evaluation of Episodes: No episodes were recorded during the monitored period. Please contact me if you have any questions or concerns, thank you. MONO Garcia Cardiology Nurse Practitioner Doretha Romero APRNTAISHA PROCEDURE/OLIVERIO R SURGICAL ORDERABLES * AL ILR DEVICE INTERROGAT REMOTE, AL ICM/ILR REMOTE TECH SERV (03/03/2018 2:20 PM CDT) Doretha Hudson APRN-CNP - 03/03/2018 2:20 PM CDT Doretha Romero APRN-CNP 03/03/2018 2:20 PM Rex L Pranay is undergoing manager long term care monitoring with a Reveal implantable loop recorder for stroke surveillance. The remote transmission from 01-21-18 to 02-24-18 showed the following results: Baseline Strip: Sinus rhythm with PVCs. Episodes Total: 0 afib, Symptomatic Episodes: 0 Evaluation of Episodes: No episodes were recorded during the monitored period. Please contact me if you have any questions or concerns, thank you. MONO Garcia Cardiology Nurse Practitioner Doretha Romero APRN-SET OFF BLOCKER PROCEDURE/OLIVERIO R SURGICAL ORDERABLES * AL ILR DEVICE INTERROGAT REMOTE, AL ICM/ILR REMOTE TECH SERV (01/27/2018 1:54 PM CDT) Doretha Hudson APRN-CNP - 01/27/2018 1:54 PM CDT Doretha Romero APRN-CNP 01/27/2018 1:54 PM Rexlyssa Pires is undergoing manager long term care monitoring with a Reveal implantable loop recorder for stroke surveillance. The remote transmission from 12-17-17 to 01-20-18 showed the following results: Baseline Strip: Sinus bradycardia 52 bpm Episodes Total: 0 afib, Symptomatic Episodes: 0 Evaluation of Episodes: No episodes were recorded during the monitored period. Please contact me if you have any questions or concerns, thank you. [facility] Card[facility] Nurse Practitioner Doretha COOK PROCEDURE/OLIVERIO R SURGICAL ORDERABLES * AL ILR DEVICE INTERROGAT REMOTE, AL ICM/ILR REMOTE TECH SERV (12/27/2017 8:43 AM CDT) Doretha Hudson APRN-CNP - 12/27/2017 8:43 AM CDT Doretha Romero APRN-CNP 12/27/2017 8:43 AM Rex Ti Pires is undergoing manager long term care monitoring with a Reveal implantable loop recorder for stroke surveillance. The remote transmission from 11-12-17 to 12-16-17 showed the following results: Baseline Strip: Sinus rhythm with a rate around 68 bpm Episodes Total: 0 afib, Symptomatic Episodes: 1 Evaluation of Episodes: All available strips have been reviewed. Symptom episode on 12-10-17 at 0109: Sinus tachycardia with a PVC. Rate around 103 bpm Please contact me if you have any questions or concerns, thank you. LASHAWN GarciaLINNEA Cardiology Nurse Practitioner Doretha COOK PROCEDURE/OLIVERIO R SURGICAL ORDERABLES * AL ILR DEVICE INTERROGAT REMOTE, AL ICM/ILR REMOTE TECH SERV (11/24/2017 4:29 PM CDT) Doretha Hudson APRN-CNP - 11/24/2017 4:29 PM CDT Doretha Romero APRN-CNP 11/24/2017 4:29 PM Rex Pires is undergoing detention monitoring with a Reveal implantable loop recorder for stroke. The remote transmission from 10-08-2017 to 11-11-2017 showed the following results: Baseline Strip: Sinus rhythm with a rate around 100 bpm Episodes Total: 0 afib, Symptomatic Episodes: 0 Evaluation of Episodes: No episodes were recorded during the monitored period. Please contact me if you have any questions or concerns, thank you. MONO Garcia Cardiology Nurse Practitioner Doretha Romero APRN-SET OFF BLOCKER PROCEDURE/OLIVERIO R SURGICAL ORDERABLES * PROC LOOP DEVICE CHECK (REMOTE) (10/17/2017 8:18 AM CDT) Narrative [facility] - 10/17/2017 8:18 AM CDT Rex Pires is undergoing detention monitoring with a Reveal implantable loop recorder for stroke. The remote transmission from 10-07-2017 showed the following results: Baseline Strip: Sinus arrhhytmia Episodes Total: 0 afib, Symptomatic Episodes: 0 Evaluation of Episodes: No episodes were recorded during the monitored period. Please contact me if you have any questions or concerns, thank you. MONO Garcia Cardiology Nurse Practitioner Procedure Note Provider, MD Amena - 12/20/2017 Rex Pires is undergoing detention monitoring with a Revealimplantable loop recorder for stroke. The remote transmission [id number] showed the following results: Baseline Strip: Sinus arrhhytmia Episodes Total: 0 afib, Symptomatic Episodes: 0 Evaluation of Episodes: No episodes were recorded during the monitoredperiod. Please contact me if you have any questions or concerns, thank you. MONO Garcia Cardiology Nurse Practitioner Doretha Romero APRN-SET OFF BLOCKER PROCEDURE/OLIVERIO R SURGICAL ORDERABLES [facility] * PROC LOOP DEVICE CHECK (REMOTE) (09/13/2017 11:14 AM BISTRO ATTENDANT) Narrative [facility] - 09/13/2017 11:14 AM BISTRO ATTENDANT Rex Pires is undergoing detention monitoring with a Reveal implantable loop recorder. The remote transmission from 09-02-2017 showed the following results: Baseline Strip: Sinus rhythm with a rate of about 75 bpm Episodes Total: 0 afib, Symptomatic Episodes: 0 Evaluation of Episodes: No episodes were recorded during the monitored period. Please contact me if you have any questions or concerns, thank you. MONO Garcia Cardiology Nurse Practitioner Procedure Note ProviderAmena MD - 12/20/2017 Rex Pires is undergoing manager long term care monitoring with a Revealimplantable loop recorder. The remote transmission from 09-02-2017 showedthe following results: Baseline Strip: Sinus rhythm with a rate of about 75 bpm Episodes Total: 0 afib, Symptomatic Episodes: 0 Evaluation of Episodes: No episodes were recorded during the monitoredperiod. Please contact me if you have any questions or concerns, thank you. MONO Garcia Cardiology Nurse Practitioner Long Anderson CD PROCEDURE/MINOR SURG ICAL ORDERABLES Performing Organization Address City/[facility] Co de Phone Number [facility] * LAB HISTORICAL RESULTS-ONBASE (08/20/2017) Only the most recent of2 resultswithin the time period is included. 08/20/2017 Historical Provider LAB - CHEMISTRY O RDERABLES Performing Organization Address City/[facility] Co de Phone Number [address] * PROC LOOP DEVICE CHECK (REMOTE) (08/12/2017 3:45 PM BISTRO ATTENDANT) Narrative [facility] - 08/12/2017 3:45 PM BISTRO ATTENDANT Rex Pires is undergoing detention monitoring with a Reveal implantable loop recorder. The remote transmission from 07-29-2017 showed the following results: Baseline Strip: Sinus hilary with a rate of about 56 bpm Episodes Total: 0 afib, Symptomatic Episodes: 0 Evaluation of Episodes: No episodes were recorded during the monitored period. Please contact me if you have any questions or concerns, thank you. MONO Garcia Cardiology Nurse Practitioner Procedure Note Provider, MD Amena - 12/20/2017 Rex Pires is undergoing detention monitoring with a Revealimplantable loop recorder. The remote transmission from 07-29-2017 showedthe following results: Baseline Strip: Sinus hilary with a rate of about 56 bpm Episodes Total: 0 afib, Symptomatic Episodes: 0 Evaluation of Episodes: No episodes were recorded during the monitoredperiod. Please contact me if you have any questions or concerns, thank you. LASHAWN Garcia-LINNEA Cardiology Nurse Practitioner Long Anderson CD PROCEDURE/MINOR SURG ICAL ORDERABLES Performing Organization Address [facility] de Phone Number [facility] * PROC LOOP DEVICE CHECK (REMOTE) (07/23/2017 1:37 PM BISTRO ATTENDANT) Narrative [facility] - 07/23/2017 1:37 PM BISTRO ATTENDANT Rex Pires is undergoing detention monitoring with a Reveal implantable loop recorder. The remote transmission from 06/23/17 showed the following results: Baseline Strip: Sinus rhythm Episodes Total: 0, Symptomatic Episodes: 0 Evaluation of Episodes: No episodes were recorded during the monitored period. Please contact me if you have any questions or concerns, thank you. Procedure Note ProviderAmena MD - 12/20/2017 Rex Pires is undergoing detention monitoring with a Revealimplantable loop recorder. The remote transmission from 06/23/17 showedthe following results: Baseline Strip: Sinus rhythm Episodes Total: 0, Symptomatic Episodes: 0 Evaluation of Episodes: No episodes were recorded during the monitoredperiod. Please contact me if you have any questions or concerns, thank you. Lnog Anderson CD PROCEDURE/MINOR SURG ICAL ORDERABLES Performing Organization Address [facility] de Phone Number [facility] * PROC LOOP DEVICE CHECK (REMOTE) (06/05/2017 4:00 PM BISTRO ATTENDANT) Narrative [facility] - 06/05/2017 4:00 PM BISTRO ATTENDANT Rex Pires is undergoing detention monitoring with a Reveal implantable loop recorder. The remote transmission from 05/09/17 showed the following results: Baseline Strip: Sinus rhythm Episodes Total: 0, Symptomatic Episodes: 0 Evaluation of Episodes: No episodes were recorded during the monitored period. Please contact me if you have any questions or concerns, thank you. Procedure Note ProviderAmena MD - 12/20/2017 Rex Pires is undergoing detention monitoring with a Revealimplantable loop recorder. The remote transmission from 05/09/17 showedthe following results: Baseline Strip: Sinus rhythm Episodes Total: 0, Symptomatic Episodes: 0 Evaluation of Episodes: No episodes were recorded during the monitoredperiod. Please contact me if you have any questions or concerns, thank you. Long Anderson CD PROCEDURE/MINOR SURG ICAL ORDERABLES [facility] * EP LOOP RECORDER INSERT (04/09/2017 12:39 PM CDT) Anatomical Region Laterality Modality Other Narrative 04/09/2017 12:36 PM CDT This procedure was performed by a Cardiac Oxygen Furnace Operator in the EP lab. Please see the Op Note or Procedures Note placed by Electrophysiology. Procedure Note Provider, MD Amena - 12/20/2017 This procedure was performed by a Cardiac Oxygen Furnace Operator in the [facility]. Please see the Op Note or Procedures Note placed byElectrophysiology. Nadine Goldstein MD ELECTROPHYS RADIANT * ECHO MAY TRANSESOPHAGEAL (04/09/2017 12:00 AM CDT) Anatomical Region Laterality Modality Other 04/09/2017 Nadine Goldstein MD ECHOCARDIOGRAPHY RAD IANT * CK + CKMB PANEL (04/07/2017 5:14 PM CDT) Only the most recent of3 resultswithin the time period is included. [facility] CK Total 72 30 - 200 Units/L [facility] CK-MB 1.6 0.0 - 6.6 ng/mL [facility] Blood specimen (specimen) BLOOD SPECIMEN / Unknown 04/07/2017 5:14 PM CDT 04/07/2017 5:20 PM CDT Farheen Garzon MD LAB - CHEMISTRY LYUDMILA ZAMAN [address] [phone] * DRUG ABUSE PANEL 10-20+ETHANOL URINE NO CONFIRM (04/07/2017 7:05 AM CDT) [facility] Amphetamines Screen Urine Negative Negative: < 1000 ng/mL [facility] Barbiturates Screen Urine Negative Negative: < 200 ng/mL [facility] Benzodiazepine Screen Urine Negative Negative: < 200 ng/mL [facility] Opiates Urine Negative Negative: < 300 ng/mL [facility] Cocaine Metabolites Urine Negative Negative: < 300 ng/mL [facility] Phencyclidine Screen Urine Negative Negative: < 25 ng/ml [facility] Cannabinoids Screen Urine Negative Negative: <50 ng/mL [facility] Methadone Screen Urine Negative Negative: < 300 ng/mL [facility] Urine specimen (specimen) URINE / Unknown 04/07/2017 7:05 AM CDT 04/07/2017 7:11 AM CDT Narrative [facility] - 04/07/2017 7:39 AM CDT The Urine Toxicology Screening Panel does not screen for Propoxyphene, Meprobamate, Carisoprodol, Trazodone, hdla-aut-ixqnuav medications and/or volatiles (Acetone, Isopropanol, Methanol or Ethylene Glycol). Ethanol, Salicylate, Acetaminophen, Tricyclic Antidepressants and several therapeutic drugs may be individually assayed in serum or plasma specimen. Toxicology testing by the [facility] is an aid to medical diagnosis and treatment of patients. No documented chain of custody was maintained. Results are intended to be used for clinical purposes only. Farheen Garzon MD LAB - URINE CHEMISTR Y ORDERABLES [facility] [address] [place] [address] * CT ANGIO BRAIN AND NECK (04/06/2017 10:47 PM CDT) Anatomical Region Laterality Modality Head Other Impressions 04/07/2017 11:19 AM CDT IMPRESSION: 1. No acute intracranial hemorrhage, midline shift, or significant mass effect. 2. No large arterial occlusions or significant stenoses identified in the head or neck. I, Dr. GRACE SILVER M.D. have personally reviewed and interpreted this examination/study. This report was electronically signed by GRACE SILVER M.D. on 04/07/2017 11:19 AM . Narrative 04/07/2017 11:19 AM CDT EXAMINATION: 1. Computed tomographic (CT) angiography of the head without and with contrast 2. CT angiography of the neck with contrast HISTORY: TIA TECHNIQUE: CT of the head was performed without contrast according to standard protocol. Then CT angiography of the head and neck was obtained after the uneventful administration of 100 mL Omnipaque 350 intravenous contrast. Three dimensional postprocessing was performed by the technologist and sent to the workstation for review. FINDINGS: No prior study is available for comparison at the time of this dictation. Non-angiographic findings: No acute intra- or extra-axial fluid collections are identified. There is moderate cerebral volume loss with associated ex vacuo ventricular dilatation. The basilar cisterns are patent. No mass effect or midline shift is seen. The lehman-white matter differentiation is normal. Moderate periventricular white matter hypoattenuation is indicative of chronic small vessel ischemic disease. There is vascular calcification of the carotid siphons. Other than mild paranasal sinus disease, the visualized portions of the orbits, paranasal sinuses, and mastoids appear normal. No acute fracture is identified. No soft tissue abnormalities are identified in the neck. 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 Angiographic findings: There is atherosclerotic disease of the aortic arch. The configuration of the brachiocephalic vessels is typical. There is atherosclerotic calcification of the innominate and subclavian arteries. There is atherosclerotic disease of the right carotid bifurcation and origin of the right internal carotid artery with less than 50 percent focal stenosis. The right common and internal carotid arteries otherwise appear normal. There is atherosclerotic disease of the left carotid bifurcation and origin of the left internal carotid artery with less than 50 percent focal stenosis. The left common and internal carotid arteries otherwise appear normal. The cervical vertebral arteries appear normal. There is atherosclerotic disease involving the distal internal carotid arteries without significant focal stenosis. The anterior and middle cerebral arteries appear normal. The distal vertebral arteries appear normal. The basilar artery and posterior cerebral arteries appear normal. No aneurysms, vascular occlusions, or intracranial stenoses are identified. Procedure Note Grace Silver MD - 10/11/2017 EXAMINATION: 1. Computed tomographic (CT) angiography of the head without and withcontrast 2. CT angiography of the neck with contrast HISTORY: TIA TECHNIQUE: CT of the head was performed without contrast according tostandard protocol. Then CT angiography of the head and neck was obtainedafter the uneventful administration of 100 mL Omnipaque 350 intravenouscontrast. Three dimensional postprocessing was performed by the technologist and sent to theworkstation for review. FINDINGS: No prior study is available for comparison at the time of thisdictation. Non-angiographic findings: No acute intra- or extra-axial fluid collections are identified. There ismoderate cerebral volume loss with associated ex vacuo ventriculardilatation. The basilar cisterns are patent. No mass effect or midlineshift is seen. The lehman-white matter differentiation is normal. Moderate periventricular white matterhypoattenuation is indicative of chronic small vessel ischemic disease.There is vascular calcification of the carotid siphons. Other than mildparanasal sinus disease, the visualized portions of the orbits, paranasal sinuses, and mastoids appear normal. Noacute fracture is identified. No soft tissue abnormalities are identified in the neck. Advancedmultilevel degenerative disc and joint disease is noted in the cervicalspine. Angiographic findings: There is atherosclerotic disease of the aortic arch. The configuration ofthe brachiocephalic vessels is typical. There is atheroscleroticcalcification of the innominate and subclavian arteries. There isatherosclerotic disease of the right carotid bifurcation and origin of the right internal carotid artery with less than50 percent focal stenosis. The right common and internal carotid arteriesotherwise appear normal. There is atherosclerotic disease of the leftcarotid bifurcation and origin of the left internal carotid artery with less than 50 percent focal stenosis.The left common and internal carotid arteries otherwise appear normal. Thecervical vertebral arteries appear normal. There is atherosclerotic disease involving the distal internal carotidarteries without significant focal stenosis. The anterior and middlecerebral arteries appear normal. The distal vertebral arteries appearnormal. The basilar artery and posterior cerebral arteries appear normal. No aneurysms, vascular occlusions, orintracranial stenoses are identified. IMPRESSION IMPRESSION: 1. No acute intracranial hemorrhage, midline shift, or significant masseffect. 2. No large arterial occlusions or significant stenoses identified in thehead or neck. I, Dr. GRACE SILVER M.D. have personally reviewed and interpreted thisexamination/study. This report was electronically signed by GRACE SILVER M.D. on 04/07/201711:19 AM . Farheen Garzon MD CT ORDERABLES Care Teams Paralegal Secretary Relationship Specialty Start Date End Date Eric Molina MD [address] [place] [id number] PCP - General Family Medicine 04/03/21 Eric Molina MD [address] [place] [id number] 04/03/21 Nadine Goldstein MD [address] [place] [id number] Neurologist Neurology 11/24/17
--- OUTSIDE RECORDS SUMMARY | 2024-09-21 08:08 | XMS_ITS | Encounter Summary ---
Author Name [facility] [place] [facility] [place] [facility] [place] Address [address] [place] [address] Care Team Providers Care Trial Attorney Name Role Phone ANGELA ARREDONDO Primary Care [...] PART A Apr 14, 2005 PART A [id number] Ti SKY PATIENT MEDICARE (WNR) MEDICARE (M) PART B Apr 14, 2005 PART B [id number] Ti SKY PATIENT Selected Encounter This section includes the information on record at [place] for the Encounter. Date/Time Encounter Type Encounter Description Reason Provider Source Sep 14, 2024 11:00 AM OFFICE O/P EST LOW 20 MIN PRIMARY CARE/MEDICINE ICD-10-CM I67.9 Cerebrovascular disease, unspecified JEN ARREDONDO OR Ti DESIR Encounter Template Text not used by [place] Assessments - Encounter Diagnoses This section includes the primary and secondary diagnoses documented for the Encounter. Date/Time Primary/Secondary Diagnosis Diagnosis Name Provider Source Sep 14, 2024 12:20 PM PRIMARY Cerebrovascular disease, unspecified VERONICA ARREDONDO [facility] Sep 14, 2024 12:20 PM SECONDARY Calculus of prostate VERONICA ARREDONDO [facility] Sep 14, 2024 12:20 PM SECONDARY [facility]pal tunnel syndrome, [facility] 14, [facility] 12:20 PM SECONDARY Carpal tunnel syndrome, right upper [facility] Sep 14, 2024 12:20 PM SECONDARY Essential (primary) hypertension VERONICA ARREDONDO [facility] Sep 14, 2024 12:20 PM SECONDARY Heart failure, unspecified VERONIAC ARREDONDO [facility] Sep 14, 2024 12:20 PM SECONDARY Hyperlipidemia, unspecified VERONICA ARREDONDO [facility] Sep 14, 2024 12:20 PM SECONDARY Nonrheumatic aortic (valve) stenosis VERONICA ARREDONOD [facility] Sep 14, 2024 12:20 PM SECONDARY Type 2 diabetes mellitus with diabetic neuropathy, unsp VERONICA ARREDONDO [facility] Sep 14, 2024 12:20 PM SECONDARY Type 2 diabetes mellitus without complications VERONICA ARREDONDO [facility] Plan of Treatment: Future Appointments (+ 6 months) and Future Tests (+/- 45 days) The Plan of Treatment section includes future care activities for the patient from all [place] [facility]. This section includes future appointments and future orders which are active, pending or scheduled. Future Appointments This section includes appointments that were scheduled to occur 6 months from the date of the Encounter, up to a maximum of 20 appointments. The data comes from all [place] treatment facilities. Appointment Date/Time Appointment Type Appointme nt Facility Name Oct 09, 2024 10:00 AM AMBULATORY - SURGERY [facility] Feb 15, 2025 03:00 PM AMBULATORY - SURGERY [facility] Vital Signs: All taken on the encounter date This section contains inpatient and outpatient Vital Signs collected on the date of the Encounter. Date/Time Temperature Pulse Blood Pressure Respiratory Rate SP02 Pain Height Weight Body Mass Index Source Sep 14, 2024 11:01 AM 97.7 84 128/71 18 99 1 200 32 [facility] Social History: Smoking Status (Most current) and Tobacco Use (All prior to encounter date) This section includes the most current, and the historical, smoking and tobacco- related health factors from the [place] facility where the Encounter took place. Current Smoking Status This section includes the most current smoking, or tobacco-related health factor, from the [place] facility where the Encounter took place. Date/Time Current Smoking Status Comment Facil ity Sep 14, 2024 11:00 AM VA-TOBACCO USE FORMER CIGARETTES [facility] Tobacco Use History This section includes a history of the smoking, or tobacco-related health factors, that were collected on or before the date of the Encounter. The data comes from the [place] facility where the Encounter took place. Date/Time Smoking Status/Tobacco Use Comment F acility Sep 14, 2024 11:00 AM VA-TOBACCO USE FORMER CIGARETTES [facility] Sep 13, 2023 02:00 PM VA-TOBACCO FORMER USER [facility] Sep 13, 2023 02:00 PM VA-TOBACCO QUIT 15 YRS OR MORE [facility] Aug 03, 2021 02:30 PM VA-TOBACCO FORMER USER [facility] Aug 03, 2021 02:30 PM VA-TOBACCO QUIT 15 YRS OR MORE [facility] Aug 22, 2018 02:18 PM VA-TOBACCO FORMER USER [facility] Aug 22, 2018 02:18 PM VA-TOBACCO QUIT [address] [facility] Aug 22, 2018 01:49 PM VA-TOBACCO FORMER USER [facility] Aug 22, 2018 01:49 PM VA-TOBACCO QUIT 15 YRS OR MORE [facility] Encounter Notes: All associated encounter notes This section contains the clinical notes associated to the Encounter. Date/Time Encounter Note(s) Provider Source Sep 14, 2024 11:07 AM PRIMARY CARE NOTE: LOCAL TITLE: PRIMARY CARE PROVIDER ESTABLISHED VISIT ST STANDARD TITLE: PRIMARY CARE NOTE DATE OF NOTE: SEP 14, 2024@11:07 ENTRY DATE: SEP 14, 2024@11:07:05 AUTHOR: ANGELA ARREDONDO COSIGNER: URGENCY: STATUS: COMPLETED ESTABLISHED PATIENT [id number] REASON FOR VISIT/CHIEF COMPLAINT: follow up HPI: PMH, see problem list 84 y/o male who presents to the medical clinic for his scheduled follow up visit. The purpose of the visit today is to follow up on the veterans chronic medical conditions. Denies new concerns or complaints. brought in a copy of his labs completed with his outside PCP. Records sent for scanning. Last PCP visit: 09/13/2023 Community Providers: -PCP: Dr. Augusto Molina, [facility], manages HTN, DM II, HLD, h/o CVA -Urologist: Dr. Posada [place], [place], manages BPH -Welder Journeyman: Dr. Betsy Hightower, [facility], manages aortic stenosis -Neurologist: Dr. Johnson, [facility], f/u PRN HTN. Home readings: 119-125/60s HR 54-60. Denies c/o SOB, CP, LITTLEJOHN, Blurred vision, peripheral edema NIDDM. Home BG readings: not monitoring. Eye Exam: completed in 08/24/2024 without evidence of retinopathy. Foot exam: F/B [place] podiatry. Last A1C 5.7%. BPH/ H/O prostate stones. Managed by outside urologist. Last PSA 24.69. had pMRI completed on 02/28/2024 (record in [facility]) which showed no evidence of masses in the transitional zone. PIRADS 1: Very Low Suspicion. Prostate biopsy negative 03/19/2024. LUTS stable off meds. Aortic stenosis/ h/o patent foramen ovale. Managed by outside computer systems security analyst. S/P amplatzer cribriform occluder placed 05/13/18 at [facility] by Dr. Augusto Estrada. Undergoing surveillance echocardiograms annually for aortic stenosis. Last TTE 09/2022, normal biventricular systolic function, LVEF 69%, Grade I DD, moderate aortic stenosis, in comparison to previous study, aortic stenosis has progressed. Asymptomatic. F/U TTE scheduled 09/22/2024. HLD. LDL goal <100. Denies c/o myalgias or arthralgias on statin. Lipid levels within treatment goal per review of outside labs. WHAT IS YOUR GOAL FOR TODAY? F/U chronic medical conditions SOURCE(S) OF HISTORY: -Patient, [facility] PAST MEDICAL HISTORY: 1) CVD - Cerebrovascular Disease ([facility] [id number]) 2) Diabetes Mellitus Type 2 ([facility] [id number]) 3) Hyperlipidemia ([facility] [id number]) 4) HTN - Hypertension ([facility] [id number]) 5) Patent foramen ovale comment: amplatzer cribriform occluder placed 05/13/18 at [facility] by Dr. Ojeda 6) Aortic valve stenosis comment: moderate, per ECHO completed on 09/25/22, See [place] 7) Neuropathy Due to Type 2 Diabetes Mellitus ([facility] [id number]) 8) Calculus of prostate comment: Completed biopsy at [facility] with community Urologist, was informed th 9) History of repair of inguinal hernia comment: right open inguinal hernia repair performed on 04/11/[address] Moser 10) History of repair of umbilical hernia comment: completed on 04/24/2003 11) History of tonsillectomy comment: completed on 04/13/1977 12) History of arthroplasty of right knee comment: completed on 08/01/16. Performed by Dr. Lombardi 13) Patent foramen ovale comment: Closure completed on 05/13/[address] Estrada. Closed with Amplatzer 14) Bilateral carpal tunnel syndrome 15) Diastolic dysfunction comment: Grade I, per ECHO completed on 09/25/22, see [facility] SURGICAL HISTORY: - S/P endoscopic Left wrist carpal tunnel release 07/17/2023 - S/P endoscopic right wrist carpal tunnel release 06/14/2023 - right open inguinal hernia repair performed on 04/11/[address] Sotero Corey at [facility] - Umbilical hernia repair completed on 04/24/2003 - Tonsillectomy 04/13/1977 - RTKA completed on 08/01/[address] Lombardi FAMILY HISTORY: DM: Mother, maternal grandmother CAD/IHD: None MH: None CA: None SOCIAL HISTORY: Tobacco use: former user, smoked for 20 years, quit in 1992 ETOH use: one [facility] Illicit drug use: none -Lives: lives with Allergy: HAZELNUTS Allergy list reviewed and remains current. MEDICATIONS: Active Outpatient Medications (including Supplies): Active Non-VA Medications Status 1) Non-VA ASCORBIC ACID 500MG TAB 500MG BY MOUTH ONCE A DAY ACTIVE Indication: FOR VITAMIN C SUPPLEMENTATION 2) Non-VA ASPIRIN 81MG EC TAB 81MG BY MOUTH ONCE A DAY ACTIVE 3) Non-VA ATORVASTATIN CALCIUM 80MG TAB 40MG BY MOUTH EVERY ACTIVE EVENING 4) Non-VA GABAPENTIN 300MG CAP 300MG BY MOUTH THREE TIMES A DAY ACTIVE 5) Non-VA GINSENG CAP/TAB 1 CAP/TAB BY MOUTH ACTIVE Indication: UNKNOWN 6) Non-VA LISINOPRIL 10MG TAB 5MG BY MOUTH ONCE A DAY ACTIVE 7) Non-VA METFORMIN HCL 500MG 24HR SA TAB 500MG BY MOUTH ONCE A ACTIVE DAY 8) Non-VA MULTIVITAMIN CAP/TAB 1 TABLET BY MOUTH ONCE A DAY ACTIVE Indication: FOR NUTRITION/DIETARY SUPPLEMENTATION 9) Non-VA NAPROXEN 250MG TAB 250MG BY MOUTH TWICE DAILY ACTIVE NEEDED Indication: FOR PAIN 10) Non-VA VITAMIN E (OTC) CAP,ORAL 500MG BY MOUTH ONCE A DAY ACTIVE Indication: FOR VITAMIN SUPPLEMENTATION MEDICATION RECONCILIATION: completed REVIEW OF SYSTEMS: See HPI for further details of positive complaints. All 10 systems reviewed and otherwise negative. PHYSICAL EXAMINATION: VITALS (most recent, as listed in the electronic record): Temperature: 97.7 F [36.5 C] (09/14/2024 11:01) BP: 128/71 (09/14/2024 11:01) Pulse: 84 (09/14/2024 11:01) Resp: 18 (09/14/2024 11:01) PulsOx: 99% (09/14/2024 11:01) Pain: 1 (09/14/2024 11:01) Weight: Measurement DT WEIGHT LB(KG)[BMI] 09/14/2024 11:01 200(90.72)[32*] PHYSICAL EXAMINATION: General appearance: well-groomed, well-nourished, in no distress HEENT: sclera/conjunctiva clear, TMs pearly lehman, nares patent no secretions or inflammation, oropharynx WNL Neck: supple, no lymphadenopathy or thyromegaly Cardiovascular: RRR, + murmur, no gallop Respiratory: CTA, no wheezes, crackles or rhonchi ABD/GI: normal contour, bs + in all quads, non-tender M/S: obese gait and posture. Ambulates with single-point cane. Extremities: radial/PT pulses 2+, warm, well-perfused Psych: normal affect Neuro: Alert and oriented x 3 Skin: warm, dry, normal color and texture, skin intact ASSESSMENT/PLAN: # H/O carpal tunnel syndrome: - H/O of bilateral carpal tunnel release procedures. Pain symptoms stable # Cerebrovascular Accident: - CVA in 2014. No residual deficits. Continue ASA 81mg & atorvastatin 40mg/day - Ambulatory with single point cane # HTN: - Blood pressure controlled. Continue lisinopril 5mg/day - Trend renal function. Continue lifestyle modifications # NIDDM c/b diabetic neuropathy: - Continue metformin 500mg ER. Trend A1C. Continue lifestyle modifications. # HLD: - Continue atorvastatin 40mg. Trend lipid panel. Continue lifestyle modifications. # Systolic murmur/DD: - Managed by outside computer systems security analyst. reports no interventions were recommended at this time. F/U TTE scheduled on 09/23/2023 # Prostate calculi/BPH: - Managed by outside Urology. LUTS stable off finasteride and tamsulosin. # Peripheral Neuropathy: - Symptoms controlled on gabapentin 300mg TID. No change to medication today. HM: Colorectal cancer screening: Last completed: Mar 2021 at [facility], 1 polyp not removed with diverticulosis, no f/u rec based on age Prostate cancer screening: Last completed: PSA screening completed per community Urologist Lung cancer screening: Eligibility: quit smoking in 1982 AAA Screening: Eligibility: No longer recommended due to age ADMINISTERED Immunization Series Date Facility Reaction Info COVID-19 (CoinEx.pw), MRNA, LNP-S, * 3 04/16/2021 [facility] COVID-19 (CoinEx.pw), MRNA, LNP-S, * 2 08/23/2020 [facility]* <C> COVID-19 (PFIZER), MRNA, LNP-S, * 1 08/02/2020 [facility]* <C> INFLUENZA, HIGH-DOSE, TRIVALENT,* 2 03/25/2018 [facility] INFLUENZA, UNSPECIFIED FORMULATI* ARNULFO * INFLUENZA, UNSPECIFIED FORMULATI* 05/08/2021 No Site INFLUENZA, UNSPECIFIED FORMULATI* 3 04/14/2020 [facility] INFLUENZA, UNSPECIFIED FORMULATI* Private P* INFLUENZA, UNSPECIFIED FORMULATI* 04/17/2018 [place] INFLUENZA, UNSPECIFIED FORMULATI* 04/14/2017 Private P* INFLUENZA, UNSPECIFIED FORMULATI* 1 04/05/2017 [facility] PNEUMOCOCCAL CONJUGATE PCV 13 07/15/2014 Private P* <C> PNEUMOCOCCAL POLYSACCHARIDE PPV23 07/15/2015 Private P* TDAP 12/17/2019 No Site TDAP 08/22/2017 [facility] <C> ZOSTER LIVE 04/28/2002 No Site REFUSED ======= Immunization Date Facility Info INFLUENZA, UNSPECIFIED FORMULATI* 08/03/2022 [facility] <I> INFLUENZA, UNSPECIFIED FORMULATI* 08/02/2022 No Site <I> ZOSTER RECOMBINANT 09/13/2023 [facility] <I> ZOSTER RECOMBINANT 08/03/2022 [facility] <I> clinical reminders completed; educated on continuing to avoid salt, conc sweets; benefits of continued exercise, reg PCP visits, routine eyes exams Plan of care has been discussed with including expected therapeutic benefits and potential side effects of prescribed medications and treatments. Current medication list has been reconciled with and updated accordingly. was instructed to keep all scheduled appointments and to contact medical billing manager for any additional problems. Carbon verbalizes understanding and is in agreement with the plan of care. RTC: anually or sooner PRN PREVENTION & SCREENING: ALCOHOL: Clinical Reminder not due now or within a month BLOOD PRESSURE: Clinical Reminder not due now or within a month HEMOGLOBIN A1C: Clinical Reminder not due now or within a month HIV Screening (Routine): Patient has been offered HIV testing and has declined. I have explained that HIV testing is recommended for all adults, even if all risk factors are absent. RHS Screen - VS: RHS Screen Environmental Check Upon inquiry, the individual reports that the environment is safe to proceed. Informed Consent to Screen and Document The individual consents to proceed with screening. The individual consents to documentation of responses. PRIMARY SCREEN: In the past 12 months, how often did a current or former intimate partner (e.g., boyfriend, girlfriend, , , sexual partner): 1. Scream or curse at you Never 2. Insult or talk down to you Never 3. Threaten you with harm Never 4. Physically hurt you Never 5. Force or pressure you to have sexual contact against your will, or when you were unable to say no Never The HITS tool (items 1-4 above) is [place] copyright protected by Javan Singh MD, and the user has full rights to use it throughout the [place] system. PRIMARY SCREEN RESULT: The Primary Screen is NEGATIVE. The individual answered never to all forms of IPV above (i.e., answered never to all 5 items) The individual accepts education and/or resources: No EDUCATION: The individual indicated readiness to learn. Education offered during this session as noted above. The individual indicated understanding by asking relevant questions and making appropriate comments. No barriers to learning were observed or identified. PAVE Foot Check - L,N,P,PH,PO,PT,U: Patient indicates foot exam (including monofilament test for sensation) was performed in the past year in the private sector: Date: March 26, 2024 Result: Normal /es/ NIKKI MOROCHO, AGNP-C NURSE PRACTITIONER Signed: 09/14/2024 12:24 ANGELA ARREDONDO [facility] Sep 14, 2024 11:04 AM NURSING NOTE: LOCAL TITLE: V15 PACT FACE TO FACE NOTE STL STANDARD TITLE: NURSING NOTE DATE OF NOTE: SEP 14, 2024@11:04 ENTRY DATE: SEP 14, 2024@11:04:58 AUTHOR: GÓMEZ CAZARES EXP COSIGNER: URGENCY: STATUS: COMPLETED Provider Visit: Patient Identifiers : Full Name Date of Reason for visit: Established Follow-Up Mode of Arrival: Assistive Device: Cane Allergy Review: HAZELNUTS Allergy list reviewed and remains current. Recent Vital Signs: Temperature: 97.7 F [36.5 C] (09/14/2024 11:01) Pulse: 84 (09/14/2024 11:01) Respiration: 18 (09/14/2024 11:01) B/P: 128/71 (09/14/2024 11:01) Pain: 1 (09/14/2024 11:01) Wt: 200 lb [90.72 kg] (09/14/2024 11:01) Ht: 66 in [167.6 cm] (09/13/2023 13:56) BMI: 32.3 POX: 99% (09/14/2024 11:01) Would you like to discuss any personal problem, family problem, alcohol use, drug use, or a mental or emotional illness? No Contact provided Primary Care phone number and encouraged to call if any questions or concerns. Review that after hours nurse line [phone] and emergency room are available 04/02 for patient use. Contact verbalized good understanding. Suicide Screen - V: C-SSRS Screening [place] Suicide Severity Rating Scale (C-SSRS) screener 1. Over the past month, have you wished you were or wished you could go to sleep and not wake up? No 2. Over the past month, have you had any actual thoughts of killing yourself? No 3. Over the past month, have you been thinking about how you might do this? Response not required due to responses to other questions. 4. Over the past month, have you had these thoughts and had some intention of acting on them? Response not required due to responses to other questions. 5. Over the past month, have you started to work out or worked out the details of how to kill yourself? Response not required due to responses to other questions. 6. If yes, at any time in the past month did you intend to carry out this plan? Response not required due to responses to other questions. 7. In your lifetime, have you ever done anything, started to do anything, or prepared to do anything to end your life (for example, collected pills, obtained a gun, gave away valuables, went to the roof but didn't jump)? No 8. If YES, was this within the past 3 months? Response not required due to responses to other questions. Depression Screening - V: Perform PHQ-2 A PHQ-2 screen was performed. The score was 0 which is a negative screen for depression. Over the past two weeks, how often have you been bothered by the following problems? 1. Little interest or pleasure in doing things Not at all 2. Feeling down, depressed, or hopeless Not at all Homelessness/Food Insecurity Screen - DI,L,N,P,PH,PS,S,U: In the past 2 months, have you been living in stable housing that you own, rent, or stay in as part of a household? Yes - Living in stable housing. Are you worried or concerned that in the next 2 months you may NOT have stable housing that you own, rent, or stay in as part of a household? No - Not worried about housing near future The reports the following: Within the past 12 months, you worried whether your food would run out before you got money to buy more. Never true Within the past 12 months, the food you bought just didn't last and you didn't have money to get more. Never true Influenza Immunization - L,N,P,PH,U: The patient has received the seasonal influenza vaccine for the current season at another location. Documented: INFLUENZA, UNSPECIFIED FORMULATION Historical Date Administered: Mar 2024 Exact date unknown Outside Location: [facility] Information Source: FROM OTHER PROVIDER [facility] MAP: PERSONAL HEALTH PLAN INVENTORY & MAP Carbon's Response: have one more day Tobacco Use Screening - AT,DE,L,M,N,P,PH,PS,RT,S,U: The patient is a former cigarette smoker. The patient has never used other types of tobacco. Alcohol Use Screen (AUDIT-C) - V: Alcohol Screen: SCREEN FOR ALCOHOL (AUDIT-C) An alcohol screening test (AUDIT-C) was negative (score=4). 1. How often did you have a drink containing alcohol in the past year? Consider a drink to be a 12 ounce can or bottle of regular beer, 8 ounces of malt liquor, a 5 ounce glass of table wine, or a 1.5 ounce shot of liquor (like scotch, gin, or vodka). Four or more times a week 2. How many drinks containing alcohol did you have on a typical day when you were drinking in the past year? One or two drinks 3. How often did you have six or more drinks on one occasion in the past year? Never Herpes Zoster (Shingles) Vaccine: The patient declines to receive the recommended dose of zoster (shingles) vaccine. Immunization: ZOSTER RECOMBINANT Refusal Reason: PATIENT DECISION Patient refuses all immunization(s) in the ZOSTER group Date Documented: 09/14/24 11:10 /sheri/ GÓMEZ CAZARES LPN ADN LICENSED PRACTICAL NURSE Signed: 09/14/2024 11:11 GÓMEZ CAZARES [facility]
--- OUTSIDE RECORDS SUMMARY | 2024-09-21 08:08 | XMS_ITS ---
Author Name Auto Generated, Auto Generated Organization [facility] Support Name Relationship Address Phone Maria Eugenia Pires Emergency Contact [address] [place] [address] Unavailable Pranay, Karina Daughter Unknown Unavailable Pranay, William Son Unknown Unavailable Pranay, Rex Financial Responsible [employer] [address] [place] [address] Rex Pires Self [address] [place] [address] Pranay, Maria Eugenia Spouse [address] [place] [address] Unavailable Pranay, Karina Emergency Contact 2 Unknown Unav ailable Pranay, William Emergency Contact 3 Unknown Unava ilable Summary Purpose Consult/Referral Allergies, Adverse Reactions, Alerts Type Description/Agent Code Date Allergy Active Date Allergy Inactivated Date of Last Reaction Adverse Reactions Severity Status Comments Source of Information FDB Medic ation Ingre dient hazelnut Active Patient History Medications No Known Medications Conditions/Problems Problem/Diagnosis Awareness of Diagnosis Code (ICD-10) Onset Date (Start Date) Resolution Date (End Date) Status Source Comments RETENTION OF URINE, UNSPECIFIED R33.9 06/28/20 Active MD Isak Rmey PRESENCE OF UROGENITAL IMPLANTS Z96.0 06/28/20 Active MD Isak Remy 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 Z79.2 06/28/20 Active MD Isak Remy TYPE 2 DIABETES MELLITUS WITHOUT COMPLICATIONS E11.9 06/28/20 20 Active MD Isak Remy CONSTIPATION, UNSPECIFIED K59.00 06/28/20 Active MD Isak Remy INSOMNIA, UNSPECIFIED G47.00 06/28/20 Active MD Isak Remy HYPERLIPIDEMIA, UNSPECIFIED E78.5 06/28/20 Active MD Isak Remy ESSENTIAL (PRIMARY) HYPERTENSION I10 06/28/20 Active MD Isak Remy BENIGN PROSTATIC HYPERPLASIA WITH LOWER URINARY TRACT SYMPTOMS N40.1 06/28/20 Active MD Isak Remy ENCOUNTER FOR ADJUSTMENT AND MANAGEMENT OF VASCULAR ACCESS DEVICE Z45.2 06/28/20 Active MD Isak Remy 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 (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) USE OF ORAL HYPOGLYCEMIC DRUGS Z79.84 06/28/20 Active MD Isak Remy UNSPECIFIED URINARY INCONTINENCE R32 06/28/20 Active MD Isak Remy PERSONAL HISTORY OF TRANSIENT ISCHEMIC ATTACK (TIA), 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 06/28/20 Active MD Isak Remy MALE ERECTILE DYSFUNCTION, UNSPECIFIED N52.9 06/28/20 Active MD Isak Remy LOW BACK PAIN M54.5 06/28/20 Active MD Isak Remy DRUG INDUCED CONSTIPATION K59.03 06/28/20 Active MD Isak Remy ADVERSE EFFECT OF UNSPECIFIED NARCOTICS, SUBSEQUENT ENCOUNTER T40.605D 06/28/20 Active MD Isak Remy UNSPECIFIED INJURY OF RIGHT SHOULDER AND UPPER ARM, SUBSEQUENT ENCOUNTER S49.91XD 06/28/20 Active MD Isak Remy OBESITY, UNSPECIFIED E66.9 0 20 Active MD Isak Remy ALLERGIC RHINITIS, UNSPECIFIED J30.9 06/28/20 20 MD Isak Tamez BODY MASS INDEX [BMI]30.0-30.9, ADULT Z68.30 06/28/20 20 MD Isak Tamez OTHER SPECIFIED POSTPROCEDURAL STATES Z98.890 06/21/20 20 MD Isak Tamez 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
[2024-09-21 14:30] LABS: Alanine Aminotransferase 38 U/L (6-50); Albumin Level 4.4 g/dL (3.5-5.1); Alkaline Phosphatase 89 U/L (38-126); Anion Gap 10 mmol/L (4-12); Aspartate Amino Transferase 66 U/L (17-59); Bilirubin,Total 0.8 mg/dL (0.2-1.3); Blood Urea Nitrogen 27 mg/dL (9-20); Calcium 9.7 mg/dL (8.4-10.2); Carbon Dioxide 28 mmol/L (22-30); Chloride 105 mmol/L (98-107); Estimated Glomerular Filt Rate > 60; Glucose 89 mg/dL (65-110); Potassium 5.2 mmol/L (3.4-5.0); Sodium 143 mmol/L (137-145)
[2024-09-21 14:54] LABS: Creatinine Urine 102.3 mg/dL
[2024-09-21 15:03] LABS: Microalbumin Urine Random 11.3 mg/L (0-16.7)
[2024-09-21 15:36] LABS: Hemoglobin A1C 5.8 % (<5.7)
== END 2024-09-21 07:59 | disposition home or self-care (01) ==
LOC: ANHGOSHLAB 07:59
PROVIDERS: PCP Family Medicine; Visit Provider Family Medicine
DX: E11.9 Type 2 diabetes mellitus without complications (principal)
CPT/HCPCS: 36415; 80053; 82043; 83036

== ENCOUNTER 2025-03-25 13:43 | Outpatient (CLI) | payer MEDICARE, OTHER, SELFPAY ==
--- OUTSIDE RECORDS SUMMARY | 2025-03-25 15:28 | XMS_ITS | Clinical Summary ---
Author Organization [facility] Address [address], [facility] [address] [place] [address] Phone Care Team Providers Care Procurement Professional Name Role Phone Augusto Molina MD Primary Care Provider [phone] Gil Madison DO Unavailable [phone] Social History Tobacco Use Types Packs/Day Years Used Date Smoking Tobacco: Never Assessed Sex and Gender Information Value Date Recorded Sex Assigned at Not on file Legal Sex Male 9:45 PM CDT Gender Identity Not on file Sexual Orientation Not on file Plan of Treatment Health Maintenance Due Date Last Done Comments Hepatitis C Virus (HCV) Screening 1940 Pneumococcal Immunization (5 0+ years) (1 of 1 - PCV) 1990 Zoster Immunization (1 of 2) 1990 Respiratory Syncytial Virus (RSV) Immunization (Adult) (1 - 1-dose 75+ series) 2015 SARS-COV-2 Immunization (2 - season) 2024 04/16/2021 Influenza Immunization (#1) 03/15/202504/14, 04/24/2018 DTaP/Tdap/Td Immunization Discontinued 12/17/2019 TdaP Immunization Completed 12/17/2019 Hepatitis B Immunization Aged Out No longer eligible based on patient's age to complete this topic Human Papillomavirus (HPV) Immunization Aged Out No longer eligible based on patient's age to complete this topic Meningococcal Immunization (ACWY) Aged Out No longer eligible based on patient's age to complete this topic Rotavirus Immunization Aged Out No lo nger eligible based on patient's age to complete this [place] [address] [place] [address] MEDICARE Care Teams Procurement Professional Relationship Specialty Start Date End Date Augusto Molina MD [address] [place] [address] [facility] [address] [place] [address] PCP - General Family Medicine 03/31/18 Gil Madison DO [address] [place] [address] [facility] [address] [place] [address] Gastroenterology 03/31/18
--- OUTSIDE RECORDS SUMMARY | 2025-03-25 15:28 | XMS_ITS | Clinical Summary ---
Author Organization [place] [id number] Address [address] [place] [address] Care Team Providers Care Microarray Specialist Name Role Phone Augusto Molina MD Primary Care Provider [phone] Allergies Active Allergy Reactions Criticality Noted Date [...] chromium 200 mcg tablet 200 mcg Active pngay-6-aon-epa -dpa-fish oil 1,050-1,200 mg capsule 1 capsule Active ginseng 250 mg capsule Take by mouth Active lecithin 1,200 mg capsule Take by mouth Activ e Active Problems Problem Noted Date Diagnosed Date History of urinary retention 08/29/2020 Assessment & Plan (08/29/2020 10:25 AM GLAZIER SUPERVISOR): -Finish tamsulosin and then stop this medication. -Pt instructed to call if he has reoccurring symptoms of retention or other concerns. -F/U prn Spinal epidural abscess 06/21/2020 Assessment & Plan (08/16/2020 3:26 PM GLAZIER SUPERVISOR): Summary: 80 y.o. male w/PMH of HTN, [...] PRN Assessment & Plan (07/12/2020 5:18 PM GLAZIER SUPERVISOR): Summary: 80 y.o. male w/PMH of HTN, [...] person). Assessment & Plan (06/27/2020 12:58 PM GLAZIER SUPERVISOR): 80 y.o. male w/PMH of T2D, L1-4 [...] contact the ID B&J Team PA at [phone] (desk) or [phone] (pager) M-F, 7-3; or the Attending at [phone] with any questions or concerns. After hours, the ID fellow chip person can be reached at [phone]. Hypertension 06/21/2020 Hyperlipidemia 06/21/2020 Type 2 diabetes [...] on file Legal Sex Male 7:31 PM GLAZIER SUPERVISOR Gender Identity Not on file Sexual Orientation Not on file Obstetrics History Last Filed Vital Signs Vital Sign Reading Time Taken Comments Blood Pressure 160/75 08/16/2020 2:54 PM GLAZIER SUPERVISOR Pulse 91 08/16/2020 2:54 PM GLAZIER SUPERVISOR Temperature 36.6 C (97.8 F) 08/16/2020 2:54 PM GLAZIER SUPERVISOR Respiratory Rate 16 07/28/2020 9:52 AM GLAZIER SUPERVISOR Oxygen Saturation 97% 07/28/2020 9:52 AM GLAZIER SUPERVISOR Inhaled Oxygen Concentration - - Weight 79.4 kg (175 lb) 07/26/2021 9:19 AM GLAZIER SUPERVISOR Height 167.6 cm (5' 6) 07/26/2021 9:19 AM GLAZIER SUPERVISOR Body Mass Index 28.25 07/26/2021 9:19 AM GLAZIER SUPERVISOR Plan of Treatment Health Maintenance Due Date Last Done Comments Albumin Creatinine Ratio, Urine 1940 Depression Screening 1940 Dilated Eye Exam 1940 Foot Exam 1940 Hepatitis B Screening 1958 Zoster Vaccine (2 of 3) 06/23/2002 04/28/2002 Well Visit 65+ 2005 Fall Risk Assessment 06/28/2021 06/28/2020 Hemoglobin A1C 10/05/2021 04/07/2021, 06/21/2020 Lipid Panel 04/07/2022 04/07/2021, 06/22/2020 eGFR 05/02/2022 05/02/2021, 04/14, 04/25/2021, Additional history exists Covid-19 Vaccine ( - 2024-2 6 season) 2025 04/16/2021, 08/23/2020, 08/02/2020 Influenza Vaccine (#1) 2025 3, 05/08/2021, 04/14/2020, Additional history exists DTaP/Tdap/Td Vaccine (4 - Td or Tdap) 12/16/2029 12/17/2019, 12/17/2019, 08/22/2017 Pneumococcal vaccine 65+ Completed 07/15/2015, 07/2014 Medical Devices Implanted Type Area Fitness Director Device Identifier Shelf Expiration Date Model / Serial / Lot Amplatz Cribiform Occluder N/A: Heart [employer] Knee Replacement Right: Knee Procedures Procedure Name Priority Date/Time Associated Diagnosis Comments EGFR Routine Gen Lab 05/02/2021 5:57 AM CDT LIPID PANEL Routine 06/22/2020 11:50 PM GLAZIER SUPERVISOR HEMOGLOBIN A1C Routine 06/21/2020 2:33 AM GLAZIER SUPERVISOR from Last 3 Months or Most Recently [...] ORDERABLES Final Re sult [facility]AS[facility] DEMPSEY [facility] Department [place] [address] * (ABNORMAL) Lipid panel (06/22/2020 11:50 PM GLAZIER SUPERVISOR) Cholesterol 56 30 - 199 mg/dL [facility] Comment: Interpretive Data Ages < or = [...] revised on 2018. Triglycerides 85 <=149 mg/dL [facility] Comment: Interpretive Data Ages < or = [...] revised on 2018. HDL 21(L) >=40 mg/dL [facility] Comment: Interpretive Data Ages < or = [...] on 2018. LDL, calculated 18 <=129 mg/dL [facility] Comment: Interpretive Data Ages < or = [...] revised on 2018. Non-HDL Cholesterol 35 mg/dL [facility] Comment: Interpretive Data Ages < or = [...] last revised on 2018. Chol/HDL ratio 3 [facility] Blood specimen (specimen) 06/22/2020 11:50 PM GLAZIER SUPERVISOR 06/23/2020 12:14 AM GLAZIER SUPERVISOR Gutierrez Fan MD LAB BLOOD ORDERABLES Final Res ult [facility] Department [place] [address] * (ABNORMAL) Hemoglobin A1c (06/21/2020 2:33 AM GLAZIER SUPERVISOR) Hgb A1C 5.9(H) 4.0 - 5.6 % [facility] Estimated Average Glucose 123 mg/dL [facility] Comment: The ADA recommends reporting an estimated Average Glucose (eAG) with all Hemoglobin A1c results using the equation derived from a study of 507 normal and diabetic adults. Minority populations were underrepresented and children were not included. (Diabetes Care 31:7429-6479, 2008). The eAG is not equivalent to a fasting glucose. Blood specimen (specimen) 06/21/2020 2:33 AM GLAZIER SUPERVISOR 06/21/2020 2:56 AM GLAZIER SUPERVISOR us Augusto Huff MD LAB BLOOD ORDERABLES Fi nal Result [facility] BJ [facility] Department [place] [address] from Last 3 Months or Most Recently Relevant to Health Maintenance Insurance MEDICARE [employer] MEDICARE [place] [id number] [facility] [place] [address] [place] [address] FOR LIFE MEDICARE [place] [facility] Advance Directives For more information, please contact: [phone] * Full Code (Latest Code Status on File) Date Activated Date Inactivated Comments 06/21/2020 3:47 PM 06/28/2020 9:51 PM Care Teams Microarray Specialist Relationship Specialty Start Date End Date Augusto Molina MD PCP - General Family Medicine 07/12/20
[2025-03-25 19:45] LABS: Alanine Aminotransferase 35 U/L (6-50); Albumin Level 4.3 g/dL (3.5-5.1); Alkaline Phosphatase 93 U/L (38-126); Anion Gap 7 mmol/L (4-12); Aspartate Amino Transferase 47 U/L (17-59); Bilirubin,Total 0.8 mg/dL (0.2-1.3); Blood Urea Nitrogen 24 mg/dL (9-20); Calcium 9.6 mg/dL (8.4-10.2); Carbon Dioxide 28 mmol/L (22-30); Chloride 103 mmol/L (98-107); Cholesterol 104 mg/dL (0-200); Estimated Glomerular Filt Rate > 60; Glucose 93 mg/dL (65-110); HDL Direct 41 mg/dL; Potassium 4.9 mmol/L (3.4-5.0); Sodium 138 mmol/L (137-145); Total Protein 7.2 g/dL (6.3-8.2); Triglycerides 198 mg/dL (<150)
[2025-03-25 20:59] LABS: Hemoglobin A1C 5.8 % (<5.7)
== END 2025-03-25 13:44 | disposition home or self-care (01) ==
LOC: ANHGOSHLAB 13:44
PROVIDERS: PCP Family Medicine; Visit Provider Family Medicine
DX: E78.2 Mixed hyperlipidemia (principal); E11.40 Type 2 diabetes mellitus with diabetic neuropathy, unspecified
CPT/HCPCS: 36415; 80053; 80061; 83036